=== PATIENT | male | born 1990 | race Caucasian/White ===

== ENCOUNTER 2020-05-02 08:35 | Emergency (ER) | payer OTHER, SELFPAY ==
[2020-05-02 08:50] VITALS: BP 136/91; PULSE 78; RESP 18; TEMP 36.7; O2SAT 99; BMI 25.2
--- NOTE | 2020-05-02 08:50 | ED.DENTAL ---
HPI - Dental/Oral General Chief complaint: Dental/Oral Stated complaint: Tooth Pain Time Seen by Provider: 05/02/20 08:50 Source: patient Mode of arrival: ambulatory Limitations: no limitations History of Present Illness HPI Narrative: 30 y/o male with history of poor dentition requiring multiple extractions in the past presenting with 2 weeks of left upper dental pain. He has not called his dentist or taken any medications. He has been using hydrogen peroxide mouth wash. He states the pain has been worsening and he is unable to sleep and unable to concentrate at his job. He reports headache, upset stomach and nausea as well. Denies fever, jaw pain. States last night he noticed slight swelling of his upper gum and face prompting ER evaluation. Related Data Previous Rx's Medication Instructions Recorded ibuprofen 600 mg PO Q8H PRN #30 tab 05/02/20 penicillin V potassium 500 mg PO TID #21 tab 05/02/20 tramadol 50 mg PO Q8H PRN #10 tab 05/02/20 Allergies Allergy/AdvReac Type Severity Reaction Status Date / Time No Known Allergies Allergy Verified 05/02/20 08:50 Review of Systems Review of Systems: Constitutional: No Fever, No Chills ENT/Mouth: No sore throat, No Rhinorrhea, No Swallowing Difficulty, +dental pain, +facial swelling Cardiovascular: No Chest Pain, No SOB Respiratory: No Cough, No Sputum, No Wheezing, No dyspnea Gastrointestinal: + Nausea, No Vomiting, No Diarrhea, No abdominal Pain Genitourinary: No Dysuria, No Urinary Frequency, No Hematuria Musculoskeletal: No joint pain, No Myalgias Skin: No Skin Lesions, No rash Neuro: No Weakness, No Numbness, No Dizziness, No Headache Psych: No Anxiety/Panic, No Depression Heme/Lymph: No Bruising, No Lymphadenopathy Endocrine: No Polyuria, No Polydipsia [facility] Past Medical History Medical History (Updated 05/02/20 @ 08:56 by JEREL Corley) No known health problems No known health problems Social History Social History Alcohol intake: current Alcohol intake frequency: a few times a month Smoking Status: Current every day smoker Use of substances other than those prescribed or required for medical reasons: Yes Substance Use Type: Marijuana Physical Exam Vital Signs: Vital Signs: Vital Signs Temp Pulse Resp BP Pulse Ox 05/02/20 08:50 98.1 F 78 18 136/91 H 99 Body Mass Index 25.2 Const: General: cooperative and healthy appearing Orientation/consciousness: oriented to person, oriented to place and oriented to time HENMT: Head: Yes normal to inspection Ears: hearing grossly normal bilaterally General nose exam: Normal external nose present Teeth and gingiva: gingiva abnormal tender and poor dentition Teeth image: 1. dental decay with gingival tenderness. no drainable abscess appreciated Throat: Yes posterior oropharynx normal Eyes: General: appearance normal, both eyes and all related structures Neck: Neck: Yes normal visual inspection, Yes full ROM and Yes no lymphadenopathy Chest: Chest palpation & inspection: normal inspection of the chest Resp: Effort & Inspection: normal respiratory effort Neuro: General: oriented to person, oriented to place and oriented to time Cranial nerves: Yes CN's II-XII intact bilaterally Gait exam (Neuro): Normal gait present Extrem: General: Yes normal to inspection Psych: Appearance: grossly normal Mental Status: mental status grossly normal Course Course Course Narrative: no abscess appreciated. facial swelling is minimal. no trismus. will empirically tx with PCN V and refer to dental. he agrees to be evaluated by dental JAYDON. NSAID and PRN tramadol also given. stable for d/c. MDM - Dental/Oral Differential Diagnosis Differential diagnosis: Likely gingival abscess, dental caries, toothache, dental abscess, fracture of tooth and aphthous ulcer Discharge Plan Discharge Clinical Impression: Toothache Patient Disposition: Home, Self-Care Instructions: Dental Abscess (ED), Toothache (ED) Additional Instructions: You MUST follow up with a dentist JAYDON. If you develop increased facial swelling, difficulty opening or closing your mouth, fevers despite antibiotics come back to the ER for further evaluation. Do not smoke, this can worsen dental infections and dental pain. Prescriptions: New ibuprofen 600 mg tablet 600 mg PO Q8H PRN (Reason: pain) Qty: 30 RF: 0 penicillin V potassium 500 mg tablet 500 mg PO TID Qty: 21 RF: 0 tramadol 50 mg tablet 50 mg PO Q8H PRN (Reason: pain) Qty: 10 RF: 0 Stand Alone Forms: Work/School Release
== END 2020-05-02 09:24 | disposition home or self-care (01) ==
LOC: HO.ED 09:09
PROVIDERS: Emergency Provider Emergency Medicine
DX: K04.7 Periapical abscess without sinus (principal); K08.89 Other specified disorders of teeth and supporting structures; F17.200 Nicotine dependence, unspecified, uncomplicated
CPT/HCPCS: 99283

== ENCOUNTER 2020-06-27 09:40 | Outpatient (REF) | payer OTHER, SELFPAY | END 2020-06-27 09:41 | disposition home or self-care (01) | LOC: HO.LAB 09:40 | PROVIDERS: Visit Provider Internal Medicine | DX: Z20.828 Contact with and (suspected) exposure to other viral communicable diseases (principal) | CPT/HCPCS: C9803; U0003 ==

== ENCOUNTER 2020-07-20 17:13 | Emergency (ER) | payer OTHER, SELFPAY ==
--- NOTE | 2020-07-20 17:20 | ED.ABDPAIN ---
HPI - Abdominal Pain General Chief Complaint: Abdominal Pain Stated Complaint: abd pain Time Seen by Provider: 07/20/20 17:20 Source: patient Mode of arrival: ambulatory Limitations: no limitations History of Present Illness HPI narrative: Patient with recurrent chronic abdominal pain for years got worse prior to arrival after lifting water with nausea no chronic diarrhea specially for last 1 week with blood when he wipes no shortness of breath no vomiting patient has not been evaluated by [employer] in the past of marijuana or any drugs Related Data Previous Rx's Medication Instructions Recorded ibuprofen 600 mg PO Q8H PRN #30 tab 05/02/20 penicillin V potassium 500 mg PO TID #21 tab 05/02/20 tramadol 50 mg PO Q8H PRN #10 tab 05/02/20 Allergies Allergy/AdvReac Type Severity Reaction Status Date / Time No Known Allergies Allergy Verified 07/20/20 17:18 Review of Systems Review of Systems Constitutional : No Weight loss, No Fever, No Chills ENT/Mouth : No sore throat, No Rhinorrhea Eyes: No Eye Pain, No Swelling Cardiovascular : No Chest Pain, no palpitations Respiratory : No Cough, No Sputum, no shortness of breath Gastrointestinal : +Nausea, No Vomiting, No Diarrhea, N++abdominal Pain, no black stools Genitourinary : No Dysuria, No Urinary Frequency Musculoskeletal : No joint pain, No Myalgias, No Joint Swelling Skin : No Skin Lesions, No rash Neuro : No Weakness, No Numbness, No Dizziness, No Headache Psych : No Anxiety/Panic, No Depression Heme/Lymph: No Bruising, No Lymphadenopathy Endocrine : No Polyuria, No Polydipsia All other systems reviewed and are negative Physical Exam Vital Signs: Vital Signs: Last Vital Signs Temp 99.4 F 07/20/20 17:25 Pulse 66 07/20/20 17:25 Resp 20 07/20/20 17:25 BP 108/63 07/20/20 17:25 Pulse Ox 100 07/20/20 17:25 Body Mass Index 23.6 Appearance: Alert. Oriented X3. No acute distress. Eyes: Pupils equal, round and reactive to light. ENT: Pharynx normal. Neck: Normal inspection. Neck supple. CVS: Normal heart rate and rhythm. Pulses normal. Respiratory: No respiratory distress. Breath sounds normal. Abdomen: Soft diffuse abdominal tenderness no guarding or rebound tenderness. Bowel sounds are present, no mass palpable, no CVA tenderness Skin: Skin warm and dry. Normal skin color. Normal skin turgor. Extremities: No lower extremity edema. Neuro: Oriented X 3. No motor deficit. No sensory deficit. Course Course Course Narrative: Patient has chronic abdominal pain with stable labs likely IBS discharge patient home on Bentyl MDM - Abdominal Pain Medical Records Attestation: I reviewed the patient's medical records. Lab Data Attestation: I reviewed the patient's lab results. Result diagrams: 07/20/20 17:52 07/20/20 17:52 Labs: Lab Results 07/20/20 07/20/20 Range/Units 17:52 17:52 WBC 6.7 (4.8-10.8) X10*3/uL RBC 4.66 (4.60-5.80) X10*6/uL Hgb 14.1 (14.0-18.0) g/dl Hct 41.1 L (42-52) % MCV 88.2 (80-98) fL MCH 30.3 (27.0-33.0) pg MCHC 34.3 (31.0-36.0) g/dl RDW 12.3 (11.0-16.0) % Plt Count 232 (160-400) X10*3/uL MPV 10.5 (9.4-12.4) fL Immature Gran % (Auto) 0.3 (0.0-0.4) % Neut % (Auto) 45.3 (45-73) % Lymph % (Auto) 41.1 H (20-40) % Shelby % (Auto) 8.6 (2-11) % Eos % (Auto) 4.0 (0-4) % Baso % (Auto) 0.7 (0-2) % Lymph # (Auto) 2.8 (1.2-4.9) X10*3/uL Shelby # (Auto) 0.6 (0.1-1.2) X10*3/uL Eos # (Auto) 0.3 (0.0-0.4) X10*3/uL Baso # (Auto) 0.1 (0.0-0.2) X10*3/uL Abs Immat Gran (auto) 0.02 (0.00-0.03) X10*3/uL Absolute Neuts (auto) 3.1 (2.0-8.3) X10*3/uL Absolute Nucleated RBC 0.000 (0.0-0.012) X10*3/uL Nucleated RBC % (auto) 0.0 (0.0-0.2) /100WBC Sodium 139 (135-145) mmol/L Potassium 4.2 (3.3-5.1) mmol/l Chloride 103 (96-108) mmol/L Carbon Dioxide 28 (22-29) mmol/L Anion Gap 12 (12-20) BUN 12 (9-16) mg/dL Creatinine 0.98 (0.5-1.4) mg/dL Estim Creat Clear Calc 106.6 Estimated GFR > 60 Random Glucose 76 (60-115) mg/dL Calcium 9.3 (8.4-10.2) mg/dL Total Bilirubin 0.4 (0.0-1.0) mg/dL Direct Bilirubin 0.2 (0.0-0.5) mg/dL AST 30 (5-37) U/L ALT 27 (0-40) U/L Alkaline Phosphatase 61 (39-117) U/L Total Protein 7.0 (6.5-8.0) g/dL Albumin 4.5 (3.5-5.0) g/dL Discharge Plan Discharge Prescriptions: No Action ibuprofen 600 mg tablet 600 mg PO Q8H PRN (Reason: pain) Qty: 30 RF: 0 penicillin V potassium 500 mg tablet 500 mg PO TID Qty: 21 RF: 0 tramadol 50 mg tablet 50 mg PO Q8H PRN (Reason: pain) Qty: 10 RF: 0 PMFSH Social History Social History Alcohol intake: never Smoking Status: Current every day smoker Smoked in Last 30 Days: No Use of substances other than those prescribed or required for medical reasons: No Substance Use Type: Marijuana Advance Directives: No Advance Directives Information Provided: Yes
[2020-07-20 17:25] VITALS: BP 108/63; PULSE 66; RESP 20; TEMP 37.4; O2SAT 100; BMI 23.6
[2020-07-20] MEDS: Dicyclomine HCl 10 MG CAPSULE 20 MG PO (17:55)
[2020-07-20] MEDS: Ketorolac Tromethamine 30 MG/ML VIAL IVPUSH (17:55)
--- NOTE | 2020-07-20 18:05 | PC.NURSE ---
iv inserted labs drawn, patient medicated per order, will continue to monitor.
[2020-07-20 18:11] LABS: MANUAL DIFF FLAG NO
[2020-07-20 18:20] LABS: Basophils Absolute Auto 0.1 X10*3/uL (0.0-0.2); Basophils Percent Auto 0.7 % (0-2); Eosinophils Absolute Auto 0.3 X10*3/uL (0.0-0.4); Hematocrit 41.1 % (42-52); Hemoglobin 14.1 g/dl (14.0-18.0); Imm Gran Abs Auto 0.02 X10*3/uL (0.00-0.03); Imm Gran Pct Auto 0.3 % (0.0-0.4); Lymphocytes Absolute Auto 2.8 X10*3/uL (1.2-4.9); Lymphocytes Percent Auto 41.1 % (20-40); Mean Corpuscular HGB Conc 34.3 g/dl (31.0-36.0); Mean Corpuscular Hemoglobin 30.3 pg (27.0-33.0); Mean Corpuscular Volume 88.2 fL (80-98); Mean Platelet Volume 10.5 fL (9.4-12.4); Monocytes Absolute Auto 0.6 X10*3/uL (0.1-1.2); Monocytes Percent Auto 8.6 % (2-11); Neutrophils Absolute Auto 3.1 X10*3/uL (2.0-8.3); Neutrophils Percent Auto 45.3 % (45-73); Platelet Count 232 X10*3/uL (160-400); Red Blood Count 4.66 X10*6/uL (4.60-5.80); Red Cell Distribution Width 12.3 % (11.0-16.0); White Blood Count 6.7 X10*3/uL (4.8-10.8)
[2020-07-20 18:48] LABS: Alanine Aminotransferase 27 U/L (0-40); Albumin Level 4.5 g/dL (3.5-5.0); Alkaline Phosphatase 61 U/L (39-117); Anion Gap 12 (12-20); Aspartate Amino Transferase 30 U/L (5-37); Bilirubin Direct 0.2 mg/dL (0.0-0.5); Bilirubin Total 0.4 mg/dL (0.0-1.0); Blood Urea Nitrogen 12 mg/dL (9-16); Calcium 9.3 mg/dL (8.4-10.2); Carbon Dioxide 28 mmol/L (22-29); Chloride 103 mmol/L (96-108); Creatinine Clr Calc Pharmacy 106.6; Estimated Glomerular Filt Rate > 60; Glucose Random 76 mg/dL (60-115); Potassium 4.2 mmol/l (3.3-5.1); Sodium 139 mmol/L (135-145)
[2020-07-20 19:02] LABS: Lipase 192 U/L (8-78)
== END 2020-07-20 19:10 | disposition home or self-care (01) ==
PROVIDERS: Emergency Provider Internal Medicine
DX: K58.9 Irritable bowel syndrome, unspecified (principal); G89.29 Other chronic pain; R10.9 Unspecified abdominal pain
CPT/HCPCS: 36415; 80048; 80076; 83690; 85025; 96374; 99284; J1885

== ENCOUNTER 2020-07-22 17:28 | Emergency (ER) | payer OTHER, SELFPAY ==
[2020-07-22 18:51] VITALS: PULSE 59; RESP 20; TEMP 36.2; O2SAT 100; BMI 24.3
[2020-07-22 20:20] VITALS: BP 163/87; PULSE 49; TEMP 36.6; O2SAT 100
--- NOTE | 2020-07-22 20:24 | PC.NURSE ---
pt pain level 10/10. with vomiting. pt pain is to his right flank.
[2020-07-22 20:34] LABS: MANUAL DIFF FLAG NO
[2020-07-22 20:56] LABS: Alanine Aminotransferase 26 U/L (0-40); Albumin Level 4.8 g/dL (3.5-5.0); Alkaline Phosphatase 62 U/L (39-117); Anion Gap 16 (12-20); Aspartate Amino Transferase 24 U/L (5-37); Bilirubin Direct 0.5 mg/dL (0.0-0.5); Bilirubin Total 0.9 mg/dL (0.0-1.0); Blood Urea Nitrogen 11 mg/dL (9-16); Calcium 9.4 mg/dL (8.4-10.2); Carbon Dioxide 24 mmol/L (22-29); Chloride 104 mmol/L (96-108); Creatinine Clr Calc Pharmacy 100.4; Estimated Glomerular Filt Rate > 60; Glucose Random 121 mg/dL (60-115); Potassium 3.4 mmol/l (3.3-5.1); Sodium 141 mmol/L (135-145); Total Protein 7.6 g/dL (6.5-8.0)
[2020-07-22 20:57] LABS: Basophils Percent Auto 0.3 % (0-2); Eosinophils Absolute Auto 0.1 X10*3/uL (0.0-0.4); Eosinophils Percent Auto 0.6 % (0-4); Hemoglobin 15.3 g/dl (14.0-18.0); Imm Gran Abs Auto 0.04 X10*3/uL (0.00-0.03); Imm Gran Pct Auto 0.4 % (0.0-0.4); Lymphocytes Absolute Auto 1.5 X10*3/uL (1.2-4.9); Lymphocytes Percent Auto 13.9 % (20-40); Mean Corpuscular HGB Conc 34.8 g/dl (31.0-36.0); Mean Corpuscular Hemoglobin 30.5 pg (27.0-33.0); Mean Corpuscular Volume 87.6 fL (80-98); Mean Platelet Volume 10.6 fL (9.4-12.4); Monocytes Absolute Auto 0.5 X10*3/uL (0.1-1.2); Monocytes Percent Auto 4.8 % (2-11); Neutrophils Absolute Auto 8.5 X10*3/uL (2.0-8.3); Platelet Count 263 X10*3/uL (160-400); Red Blood Count 5.02 X10*6/uL (4.60-5.80); Red Cell Distribution Width 12.1 % (11.0-16.0); White Blood Count 10.6 X10*3/uL (4.8-10.8)
[2020-07-22 21:17] LABS: Lipase 180 U/L (8-78)
--- NOTE | 2020-07-22 21:27 | CT_ITS ---
EXAMINATION: CT ABDOMEN AND PELVIS WITHOUT CONTRAST CLINICAL INFORMATION: Right flank pain hematuria rule out stone. COMPARISON: None TECHNIQUE: Multidetector volumetric imaging was performed from the superior aspect of the liver through the pubic symphysis. Sagittal and coronal reformatted images were obtained on the technologist's workstation. This CT examination was performed using dose optimization techniques as appropriate, variously including the following: *Automated exposure control *Adjustment of mA and/or kV according to patient size (this includes techniques or standardized protocols for targeted exams where dose is matched to indication/reason for exam; i.e. extremities or head) *Use of iterative reconstruction technique DLP: 440 mGy-cm FINDINGS: LUNG BASES: The visualized lung bases are unremarkable. LIVER, GALLBLADDER, AND BILIARY TREE: The liver is normal in size, shape, and attenuation. No focal hepatic lesion or biliary ductal dilatation is present. The gallbladder is unremarkable with no evidence of radiopaque gallstones, gallbladder wall thickening, or obvious pericholecystic inflammatory changes. PANCREAS: Unremarkable. SPLEEN: Unremarkable. ADRENAL GLANDS: Unremarkable. KIDNEYS AND URETERS: Multiple small bilateral renal calculi noted as before largest measuring 3 mm. Multiple calcifications noted within the pelvis none of which appear to be clearly located within the distal ureter. Slight dilatation of the proximal right collecting system compared to prior. There is no perinephric stranding. BLADDER: Unremarkable. GASTROINTESTINAL TRACT: The small and large bowel are unremarkable. The appendix is unremarkable. ABDOMINAL WALL: No significant hernia is appreciated. LYMPH NODES: Normal. VASCULAR: Unremarkable. PELVIC VISCERA: Unremarkable. OSSEOUS STRUCTURES: Unremarkable. CT/CT abdomen pelvis wo con IMPRESSION: Unchanged bilateral small nonobstructing calculi. Slight prominence of the proximal right collecting system but I do not clearly see a stone within the right ureter. It is possible that a recent small stone may have passed given the slight dilatation of the right proximal collecting system.
--- NOTE | 2020-07-22 21:28 | ED.GENADULT ---
HPI - General Adult General Chief complaint: Abdominal Pain Stated complaint: back/rib pain Time Seen by Provider: 07/22/20 21:14 Source: patient Mode of arrival: ambulatory Limitations: no limitations History of Present Illness HPI narrative: 30-year-old male who presents emergency department for evaluation of abdominal pain and right flank pain. Patient states this sudden onset of right flank pain at 5:00 p.m.. He describes the pain as a constant, sharp stabbing pain which is 10/10 this worse. The pain is associated with nausea and vomiting. The patient had 4 episodes of emesis with no blood in the emesis. He states that he did notice blood in his urine. He denied frequency, urgency dysuria. He denied fever, chills but he did have sweats secondary to his pain. The patient was seen 2 days prior the emergency department for left-sided abdominal pain and blood in his stool. He had a negative workup at that time but did not have a CT scan of his abdomen pelvis. The patient was started on Bentyl which she states relieved his abdominal pain but today's pain is different. Related Data Previous Rx's Medication Instructions Recorded ibuprofen 600 mg PO Q8H PRN #30 tab 05/02/20 penicillin V potassium 500 mg PO TID #21 tab 05/02/20 tramadol 50 mg PO Q8H PRN #10 tab 05/02/20 dicyclomine 20 mg PO QID PRN #20 tab 07/20/20 Allergies Allergy/AdvReac Type Severity Reaction Status Date / Time No Known Allergies Allergy Verified 07/20/20 17:18 Review of Systems Review of Systems: Yes all other systems are reviewed and are negative Neurologic: Reports Abnormal speech present COUNT INCLUDES THE [facility] Past Medical History COUNT INCLUDES THE [facility] Narrative: Patient has no past medical history, he denies taking medications on a regular basis, he smokes 1/2 pack of cigarettes per day x8 years, drinks alcohol occasionally, he smokes marijuana 2-3 times daily. Social History Social History Alcohol intake: never Smoking Status: Current every day smoker Substance Use Type: Marijuana Advance Directives: No Advance Directives Information Provided: No Physical Exam Vital Signs: Vital Signs: Last Vital Signs Temp 97.8 F 07/22/20 20:20 Pulse 49 L 07/22/20 20:20 Resp 20 07/22/20 18:51 BP 163/87 H 07/22/20 20:20 Pulse Ox 100 07/22/20 20:20 Body Mass Index 24.3 Const: General: cooperative and in distress (Secondary to abdominal/flank pain) moderate Orientation/consciousness: oriented to person and oriented to place Limitations: no limitations HENMT: Head: Yes normal to inspection, Yes normocephalic and Yes atraumatic Ears: external ears normal General nose exam: Normal external nose present Face and sinus: Yes normal facial exam Mouth: Normal oral and palatal mucosa present Throat: Yes posterior oropharynx normal Eyes: Periorbital: periorbital findings normal Eyelids: Yes eyelids normal Conjunctivae: conjunctivae normal Sclerae: sclerae normal Corneas: corneas normal Pupils: Equal, round and reactive pupils present Direct Ophthalmoscopy: normal light reflex Neck: Neck: Yes full ROM, Yes no lymphadenopathy, Yes no meningeal signs, Yes trachea midline and Yes supple Chest: Chest palpation & inspection: normal inspection of the chest and normal palpation of entire chest wall Resp: Effort & Inspection: normal respiratory effort and able to speak in complete sentences Auscultation: clear to auscultation bilaterally Cardio: Rate: regular rate Rhythm: regular rhythm Heart sounds: S1 normal heart sound present, S2 normal heart sound present and no murmurs GI: Inspection: Yes normal to inspection Palpation (GI): Soft to palpation, Tenderness to palpation present (GI) (Moderate) in the RLQ, no guarding, not rigid and No hepatosplenomegaly present : General: Yes CVA tenderness on the right (Moderate) Back/Spine/Pelvis: Back: CVA tenderness Cervical Spine: normal cervical lordosis Thoracic/Lumbar Spine: thoracic and lumbar spine normal to inspection Skin: Lesions: no lesions Rashes: no rashes Wounds: no wounds Neuro: General: oriented to person, oriented to place and no meningeal signs Cranial nerves: Yes Equal, round and reactive pupils present Cognition (Neuro): normal cognition Speech: Abnormal speech present Motor exam (neuro): 5/5 motor strength present throughout Extrem: General: Yes normal to inspection and Yes full ROM Psych: Appearance: well kempt Mental Status: mental status grossly normal Speech and movement: Normal speech and movement present Affect: normal affect Attitude: cooperative Thought process: Normal thought process present Thought content: Normal thought content present Course Course Course Narrative: 30-year-old male who presents emergency department for evaluation of right flank pain and hematuria x1 day. Patient was seen 2 days prior for left-sided abdominal pain. Physical examination did reveal there was in distress secondary to his right-side of pain, he did have moderate right lower quadrant tenderness and moderate right-sided CVA tenderness. I did order an abdominal pain workup and a CT scan of the abdomen pelvis without IV contrast. The patient was ordered to get Toradol 30 mg IV for his pain, Zofran 4 mg IV for his nausea and vomiting and normal saline IV x1 L. 2326: The patient did feel better after receiving the Toradol Zofran but had persistent nausea required a dose of Phenergan 12.5 mg IV. The patient is now pain-free and has no nausea. Laboratory evaluation did reveal an elevation in his lipase of 180 that he has had similar elevations in the past. I do not think that he has acute pancreatitis at this time. The patient was unable to give us a urine. CT scan of the abdomen pelvis did reveal multiple small kidney stones bilaterally and slight dilatation of the right renal pelvis compared to the left with no hydroureter and no stone seen in the ureter. Given this finding I do believe that the patient's symptoms are consistent with renal colic and I did discuss this with him. The patient will be discharged home advised to take ibuprofen Tylenol for the pain. He was given printed instructions on renal colic and is reviewed with him prior to discharge. He is to follow up with his PCP or with Urology for re-evaluation. Medical Decision Making Lab Data Result diagrams: 07/22/20 20:24 07/22/20 20:24 Labs: Lab Results 07/22/20 07/22/20 Range/Units 20:24 20:24 WBC 10.6 (4.8-10.8) X10*3/uL RBC 5.02 (4.60-5.80) X10*6/uL Hgb 15.3 (14.0-18.0) g/dl Hct 44.0 (42-52) % MCV 87.6 (80-98) fL MCH 30.5 (27.0-33.0) pg MCHC 34.8 (31.0-36.0) g/dl RDW 12.1 (11.0-16.0) % Plt Count 263 (160-400) X10*3/uL MPV 10.6 (9.4-12.4) fL Immature Gran % (Auto) 0.4 (0.0-0.4) % Neut % (Auto) 80.0 H (45-73) % Lymph % (Auto) 13.9 L (20-40) % Reeves % (Auto) 4.8 (2-11) % Eos % (Auto) 0.6 (0-4) % Baso % (Auto) 0.3 (0-2) % Lymph # (Auto) 1.5 (1.2-4.9) X10*3/uL Reeves # (Auto) 0.5 (0.1-1.2) X10*3/uL Eos # (Auto) 0.1 (0.0-0.4) X10*3/uL Baso # (Auto) 0.0 (0.0-0.2) X10*3/uL Abs Immat Gran (auto) 0.04 H (0.00-0.03) X10*3/uL Absolute Neuts (auto) 8.5 H (2.0-8.3) X10*3/uL Absolute Nucleated RBC 0.000 (0.0-0.012) X10*3/uL Nucleated RBC % (auto) 0.0 (0.0-0.2) /100WBC Sodium 141 (135-145) mmol/L Potassium 3.4 (3.3-5.1) mmol/l Chloride 104 (96-108) mmol/L Carbon Dioxide 24 (22-29) mmol/L Anion Gap 16 (12-20) BUN 11 (9-16) mg/dL Creatinine 1.04 (0.5-1.4) mg/dL Estim Creat Clear Calc 100.4 Estimated GFR > 60 Random Glucose 121 H D (60-115) mg/dL Calcium 9.4 (8.4-10.2) mg/dL Total Bilirubin 0.9 (0.0-1.0) mg/dL Direct Bilirubin 0.5 (0.0-0.5) mg/dL AST 24 (5-37) U/L ALT 26 (0-40) U/L Alkaline Phosphatase 62 (39-117) U/L Total Protein 7.6 (6.5-8.0) g/dL Albumin 4.8 (3.5-5.0) g/dL Lipase 180 H (8-78) U/L Discharge Plan Discharge Clinical Impression: Acute right flank pain, Renal colic on right side Patient Disposition: Home, Self-Care Instructions: Kidney Stones (ED) Additional Instructions: Your laboratory evaluation was unremarkable. The CT scan of your abdomen pelvis without IV contrast did reveal swelling of the right kidney/renal pelvis which suggests that she you may have had a kidney stone on the right side causing her pain. CT scan also showed that you have multiple small kidney stones in both of your kidneys which are not causing you pain at this time. Take ibuprofen 200 mg pills, 3 pills every 6 hours as needed for pain. Take Tylenol (acetaminophen) 500 mg pills, 2 pills every 4 to 6 hours as needed for pain. Follow-up with your doctor in 2 days. Follow-up with urology in 1-2 weeks. Please return to the emergency department if your symptoms get worse or if you develop any symptoms that are concerning to you. Prescriptions: No Action dicyclomine 20 mg tablet 20 mg PO QID PRN (Reason: abdominal pain) Qty: 20 RF: 0 ibuprofen 600 mg tablet 600 mg PO Q8H PRN (Reason: pain) Qty: 30 RF: 0 penicillin V potassium 500 mg tablet 500 mg PO TID Qty: 21 RF: 0 tramadol 50 mg tablet 50 mg PO Q8H PRN (Reason: pain) Qty: 10 RF: 0 Referrals: Eric Petersen MD [Physician] - 2 days
[2020-07-22] MEDS: Ketorolac Tromethamine 30 MG/ML VIAL IVPUSH (21:52)
[2020-07-22] MEDS: 0.9 % Sodium Chloride 1,000 ML 999 ML IV (21:52)
[2020-07-22] MEDS: ondansetron HCL 4 MG/2 ML VIAL IVPUSH (21:52)
[2020-07-23] VITALS: BP 140/70; PULSE 64; RESP 16; TEMP 36.8; O2SAT 98
== END 2020-07-23 00:47 | disposition home or self-care (01) ==
PROVIDERS: Emergency Provider Emergency Medicine Emergency Medical Services
DX: N20.0 Calculus of kidney (principal); R10.9 Unspecified abdominal pain; F17.210 Nicotine dependence, cigarettes, uncomplicated
CPT/HCPCS: 36415; 74176; 80053; 80076; 82248; 83690; 85025; 96361; 96374; 96375; 99284; J1885; J2405

== ENCOUNTER 2020-07-24 11:40 | Emergency (ER) | payer OTHER, SELFPAY ==
[2020-07-24 11:54] VITALS: BP 122/84; PULSE 67; RESP 18; TEMP 36.1; O2SAT 99; BMI 24.3
--- NOTE | 2020-07-24 11:55 | ED.RECABL ---
HPI - Recheck/Abnormal Lab/Rx General Chief Complaint: Recheck/Abnormal Lab/Rx Stated Complaint: medical clearance Time Seen by Provider: 07/24/20 11:55 Source: patient Mode of arrival: ambulatory Limitations: no limitations History of Present Illness HPI narrative: Seen here 07/22/2020 for flank pain diagnosis renal calculi had to miss work returns seeking work noted. Symptoms since prior visit: improved Related Data Previous Rx's Medication Instructions Recorded ibuprofen 600 mg PO Q8H PRN #30 tab 05/02/20 penicillin V potassium 500 mg PO TID #21 tab 05/02/20 tramadol 50 mg PO Q8H PRN #10 tab 05/02/20 dicyclomine 20 mg PO QID PRN #20 tab 07/20/20 Allergies Allergy/AdvReac Type Severity Reaction Status Date / Time No Known Allergies Allergy Verified 07/20/20 17:18 Review of Systems Review of Systems: Constitutional: No Weight loss, No Fever, No Chills, No Night Sweats, No Fatigue, No Malaise ENT/Mouth: No Hearing loss, No Ear Pain, No Nasal Congestion, No Sinus Pain, No Hoarseness, No sore throat, No Rhinorrhea, No Swallowing Difficulty Cardiovascular: No Chest Pain, No SOB Respiratory: No Cough Gastrointestinal: No Nausea, No Vomiting, No Diarrhea Genitourinary: No Urinary Frequency, No Hematuria Musculoskeletal: No joint pain, No Myalgias, No Joint Swelling Skin: No Skin Lesions, No rash Neuro: No Weakness, No Numbness, No Paresthesias, No Loss of Consciousness, No Dizziness, No Headache Psych: No Social Issues Heme/Lymph: No Bruising, No Bleeding,No Lymphadenopathy Endocrine: No Polyuria, No Polydipsia, No Temperature Intolerance Yes all other systems are reviewed and are negative ON LICENSE OF [facility] Past Medical History Medical History (Updated 07/24/20 @ 11:57 by Claire De La Torre) No pertinent past medical history Surgical History (Updated 07/24/20 @ 11:57 by Claire De La Torre) No pertinent past surgical history Social History Social History Alcohol intake: unknown Smoking Status: Current every day smoker Substance Use Type: Marijuana Physical Exam Vital Signs: Vital Signs: Last Vital Signs Temp 97.0 F 07/24/20 11:54 Pulse 67 07/24/20 11:54 Resp 18 07/24/20 11:54 BP 122/84 07/24/20 11:54 Pulse Ox 99 07/24/20 11:54 Body Mass Index 24.3 Course Course Course Narrative: Prior visit reviewed. Work note provided. Follow-up provided. Stable for discharge. Discharge Plan Discharge Clinical Impression: Well adult exam Patient Disposition: Home, Self-Care Instructions: Flank Pain (ED) Prescriptions: No Action dicyclomine 20 mg tablet 20 mg PO QID PRN (Reason: abdominal pain) Qty: 20 RF: 0 ibuprofen 600 mg tablet 600 mg PO Q8H PRN (Reason: pain) Qty: 30 RF: 0 penicillin V potassium 500 mg tablet 500 mg PO TID Qty: 21 RF: 0 tramadol 50 mg tablet 50 mg PO Q8H PRN (Reason: pain) Qty: 10 RF: 0 Referrals: [facility] [Provider Group] - 3 days Stand Alone Forms: Work/School Release
--- NOTE | 2020-07-24 11:58 | PC.NURSE ---
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 HERE FOR WORK NOTE ONLY. PT TRIAGED AND THEN DISCHARGED. PROVIDED WITH NOTE. AMBULATORY OUT OF ER, GAIT STEADY
== END 2020-07-24 12:17 | disposition home or self-care (01) ==
PROVIDERS: Emergency Provider Emergency Medicine; PCP Urology
DX: Z02.79 Encounter for issue of other medical certificate (principal); R10.9 Unspecified abdominal pain
CPT/HCPCS: 99283

== ENCOUNTER → 2020-07-25 10:34 | Outpatient (BNVA) | payer OTHER, SELFPAY | PROVIDERS: Visit Provider Urology | DX: N20.0 Calculus of kidney (principal); M54.9 Dorsalgia, unspecified | CPT/HCPCS: 99202 ==

== ENCOUNTER 2020-11-23 19:17 | Emergency (ER) | payer OTHER, SELFPAY ==
[2020-11-23 19:37] VITALS: BP 95/61; PULSE 56; RESP 16; TEMP 36.6; BMI 24.3
--- NOTE | 2020-11-23 20:23 | ED.WOUNDLAC ---
HPI - Wound/Laceration General Chief Complaint: Wound/Laceration Stated Complaint: finger lac Time Seen by Provider: 11/23/20 20:23 Source: patient Mode of arrival: ambulatory Limitations: no limitations History of Present Illness HPI narrative: cut thumb with fishing knife 2 hours ago, not up to date with tetanous Extremity Location: left: hand Place: outdoors Patient tetanus UTD: No Context: accidental Related Data Previous Rx's Medication Instructions Recorded ibuprofen 600 mg PO Q8H PRN #30 tab 05/02/20 penicillin V potassium 500 mg PO TID #21 tab 05/02/20 tramadol 50 mg PO Q8H PRN #10 tab 05/02/20 dicyclomine 20 mg PO QID PRN #20 tab 07/20/20 meloxicam 15 mg tablet 15 mg PO DAILY 30 Days #30 tab 07/25/20 pyridoxine (vitamin B6) 100 mg 100 mg PO DAILY 90 Days #90 tab 07/25/20 tablet Allergies Allergy/AdvReac Type Severity Reaction Status Date / Time No Known Allergies Allergy Verified 07/25/20 10:50 Review of Systems Constitutional: Constitutional: Reports no additional constitutional complaints Eyes: Eyes: Reports no additional eye complaints ENT: Denies dizziness Cardiovascular: Cardiovascular: Reports no additional cardiovascular complaints Respiratory: Respiratory: Reports as per HPI Gastrointestinal: Gastrointestinal: Reports no additional gastrointestinal complaints Musculoskeletal: Musculoskeletal: Reports no additional musculoskeletal complaints Integumentary/Breasts: Skin/Breast: Denies rash Neurologic: Reports system reviewed and no additional complaints, except as documented, Denies dizziness and Denies Sensory deficit (Neuro) Psychiatric: Psychiatric: Denies anxiety [facility] Past Medical History Medical History No pertinent past medical history Surgical History No pertinent past surgical history Social History Social History Alcohol intake: unknown Smoking Status: Current every day smoker Smoked in Last 30 Days: No Use of substances other than those prescribed or required for medical reasons: No Substance Use Type: Marijuana Any prior treatment program specific to substance use: No Advance Directives: No Advance Directives Information Provided: No Physical Exam Vital Signs: Vital Signs: Last Vital Signs Temp 98 F 11/23/20 19:37 Pulse 56 11/23/20 19:37 Resp 16 11/23/20 19:37 BP 95/61 11/23/20 19:37 Body Mass Index 24.3 Const: General: healthy appearing Nutritional Appearance: average body habitus Orientation/consciousness: oriented to person and patient oriented x3 Limitations: no limitations HENMT: Head: Yes normal to inspection Ears: external ears normal General nose exam: Normal external nose present Mouth: Normal oral and palatal mucosa present and oropharynx normal Throat: Yes posterior oropharynx normal Eyes: General: appearance normal, both eyes and all related structures Neck: Other: supple Neck: Yes normal visual inspection Chest: Chest palpation & inspection: normal inspection of the chest Resp: Auscultation: clear to auscultation bilaterally Cardio: Jugular venous distension: no JVD Rate: regular rate Rhythm: regular rhythm Heart sounds: S1 normal heart sound present and S2 normal heart sound present GI: Inspection: Yes normal to inspection Palpation (GI): Soft to palpation, nontender and No hepatosplenomegaly present Auscultation: normal bowel sounds : General: Yes no CVA tenderness Back/Spine/Pelvis: Back: no CVA tenderness Skin: General skin exam: no rashes or lesions noted Neuro: General: oriented to person and patient oriented x3 Cranial nerves: Yes CN's II-XII intact bilaterally Motor exam (neuro): 5/5 motor strength present throughout Sensory Exam: No Sensory deficit (Neuro) Extrem: Other: left thumb with skin avulsion Psych: Appearance: grossly normal Course Course Course Narrative: patient with skin avulsion, trimmed off bad skin and clean and dressed Discharge Plan Discharge Clinical Impression: Avulsion of skin Patient Disposition: Home, Self-Care Instructions: Skin Avulsion (ED) Additional Instructions: apply bacitracin once a day Prescriptions: No Action dicyclomine 20 mg tablet 20 mg PO QID PRN (Reason: abdominal pain) Qty: 20 RF: 0 ibuprofen 600 mg tablet 600 mg PO Q8H PRN (Reason: pain) Qty: 30 RF: 0 penicillin V potassium 500 mg tablet 500 mg PO TID Qty: 21 RF: 0 tramadol 50 mg tablet 50 mg PO Q8H PRN (Reason: pain) Qty: 10 RF: 0 pyridoxine (vitamin B6) 100 mg tablet 100 mg PO DAILY 90 Days Qty: 90 RF: 1 meloxicam [Mobic] 15 mg tablet 15 mg PO DAILY 30 Days Qty: 30 RF: 0 Referrals: Physician,Unknown [Primary Care Provider] - 10 days
[2020-11-23] MEDS: Lidocaine 4 % Cream KIT 1 APPL TOPICAL (20:36)
[2020-11-23] MEDS: cephALEXin 500 MG CAPSULE PO (20:36)
[2020-11-23] MEDS: Diphth,Pertus(ACell),Tet Adult 0.5 ML SYRINGE IM (20:37)
== END 2020-11-23 21:20 | disposition home or self-care (01) ==
PROVIDERS: Emergency Provider Emergency Medicine
DX: S61.012A Laceration without foreign body of left thumb without damage to nail, initial encounter (principal); W26.0XXA Contact with knife, initial encounter; F17.200 Nicotine dependence, unspecified, uncomplicated; F12.90 Cannabis use, unspecified, uncomplicated; Y93.89 Activity, other specified; Y92.89 Other specified places as the place of occurrence of the external cause; Y99.8 Other external cause status
CPT/HCPCS: 90471; 90715; 99284

== ENCOUNTER 2021-02-13 10:35 | Emergency (ER) | payer OTHER, SELFPAY ==
--- NOTE | ~2021-02-13 | US_ITS ---
EXAMINATION: US RETROPERITONEAL COMPLETE (RENAL) CLINICAL INFORMATION: Left flank pain. COMPARISON: None TECHNIQUE: Real-time imaging of the kidneys and bladder. FINDINGS: RIGHT KIDNEY: 9.8 x 4.1 x 5.2 cm (SAG x AP x TRV). The kidney is normal in size, contour, and echogenicity. Renal cortical thickness is normal. There is a 3 mm stone in the lower pole. No focal parenchymal lesions. No hydronephrosis. LEFT KIDNEY: 10 x 5.8 x 6 cm (SAG x AP x TRV). The kidney is normal in size, contour, and echogenicity. Renal cortical thickness is normal. There is mild left hydronephrosis. There are multiple left renal stones, largest measuring 4 x 5 mm in the midpole. No renal mass. BLADDER: Not optimally distended. Bilateral ureteral jets are non-demonstrated. Prevoid bladder volume is 29 mL. Postvoid bladder volume is 1 mL. The prostate gland is normal in size measuring 3.5 x 2.2 x 2.8 cm, volume 9 mL. US/US retroperitoneal comp IMPRESSION: Mild left hydronephrosis and multiple left renal stones. Small right renal stone. Bladder not distended.
[2021-02-13 11:20] VITALS: BP 146/100; PULSE 55; RESP 18; TEMP 36.8; O2SAT 100; BMI 25.0
--- NOTE | 2021-02-13 12:32 | ED_ITS ---
HPI - Abdominal Pain General Chief Complaint: Abdominal Pain Stated Complaint: abd pain Time Seen by Provider: 02/13/21 12:27 Source: patient Mode of arrival: ambulatory Limitations: no limitations History of Present Illness MD elicited complaint: flank pain Pertinent past history: kidney stones Onset (ago): hour(s) (830am) Pain Consistency: constant Location: L flank Severity: moderate Quality: stabbing Radiation: LLQ Migration to: no migration Exacerbating factors: movement Relieving factors: nothing Context: history of similar episodes Associated symptoms: nausea, vomiting and other (urinary retention) Related Data Previous Rx's Medication Instructions Recorded ibuprofen 600 mg tablet 600 mg PO Q8H PRN #30 tab 05/02/20 penicillin V potassium 500 mg 500 mg PO TID #21 tab 05/02/20 tablet tramadol 50 mg tablet 50 mg PO Q8H PRN #10 tab 05/02/20 dicyclomine 20 mg tablet 20 mg PO QID PRN #20 tab 07/20/20 meloxicam 15 mg tablet (Mobic) 15 mg PO DAILY 30 Days #30 tab 07/25/20 pyridoxine (vitamin B6) 100 mg 100 mg PO DAILY 90 Days #90 tab 07/25/20 tablet hydrocodone 5 mg-acetaminophen 325 1 tab PO Q6H PRN #12 tab 02/13/21 mg tablet ondansetron 4 mg disintegrating 4 mg PO Q8H PRN #20 tab 02/13/21 tablet prednisone 20 mg tablet 40 mg PO DAILY 5 Days #10 tab 02/13/21 tamsulosin 0.4 mg capsule 0.4 mg PO DAILY 7 Days #7 cap 02/13/21 Allergies Allergy/AdvReac Type Severity Reaction Status Date / Time No Known Allergies Allergy Verified 07/25/20 10:50 Review of Systems Review of Systems Constitutional : No Weight loss, No Fever, No Chills ENT/Mouth : No sore throat, No Rhinorrhea Eyes: No Swelling, No Redness Cardiovascular : No Chest Pain, No SOB, NoEdema Respiratory : No Cough, No Sputum, No Wheezing Gastrointestinal : Positive Nausea, Positive Vomiting, no Diarrhea, positive abdominal Pain, No Hematochezia, No Melena Genitourinary : No Dysuria, No Urinary Frequency, No Hematuria, No Urgency , pos hesitancy Musculoskeletal : No joint pain, No Myalgias, No Joint Swelling Skin : No Skin Lesions, No rash Neuro : No Weakness, No Numbness, No Dizziness, No Headache Psych : No Anxiety/Panic, No Depression Heme/Lymph: No Bruising, No Lymphadenopathy Endocrine : No Polyuria, No Polydipsia All other systems reviewed and are negative. Physical Exam Vital Signs: Vital Signs: Last Vital Signs Temp 98.2 F 02/13/21 11:20 Pulse 55 02/13/21 11:20 Resp 18 02/13/21 14:27 BP 146/100 H 02/13/21 11:20 Pulse Ox 100 02/13/21 11:20 Body Mass Index 25.0 Appearance: Alert. Oriented X3. Anxious in pain mild acute distress. Eyes: Pupils equal, round and reactive to light. ENT: Pharynx normal. Neck: Normal inspection. Neck supple. CVS: Normal heart rate and rhythm. Pulses normal. Respiratory: No respiratory distress. Breath sounds normal. Abdomen: Soft and nontender. L flank ttp Skin: Skin warm and dry. pale skin color. Normal skin turgor. Extremities: No lower extremity edema. No calf ttp Neuro: Oriented X 3. No motor deficit. No sensory deficit. Course Course Course Narrative: signed out to Pankaj BELTRÁN pending UA and reassessments MDM - Abdominal Pain MDM Narrative Medical decision making narrative: 30 yo male with hx of renal colic comes in with n/v abrupt onset L flank pain and urinary hesitancy at this time will need labs, UA, US scan for renal colic, IV toradol/morphine for pain Lab Data Result diagrams: 02/13/21 12:55 02/13/21 12:55 Labs: Lab Results 02/13/21 02/13/21 Range/Units 12:55 12:55 WBC 15.6 H (4.8-10.8) X10*3/uL RBC 5.43 (4.60-5.80) X10*6/uL Hgb 16.4 (14.0-18.0) g/dl Hct 47.9 (42-52) % MCV 88.2 (80-98) fL MCH 30.2 (27.0-33.0) pg MCHC 34.2 (31.0-36.0) g/dl RDW 12.1 (11.0-16.0) % Plt Count 245 (160-400) X10*3/uL MPV 10.3 (9.4-12.4) fL Immature Gran % (Auto) 0.3 (0.0-0.4) % Neut % (Auto) 83.1 H (45-73) % Lymph % (Auto) 10.0 L (20-40) % [place] % (Auto) 5.2 (2-11) % Eos % (Auto) 1.1 (0-4) % Baso % (Auto) 0.3 (0-2) % Lymph # (Auto) 1.6 (1.2-4.9) X10*3/uL [place] # (Auto) 0.8 (0.1-1.2) X10*3/uL Eos # (Auto) 0.2 (0.0-0.4) X10*3/uL Baso # (Auto) 0.1 (0.0-0.2) X10*3/uL Abs Immat Gran (auto) 0.05 H (0.00-0.03) X10*3/uL Absolute Neuts (auto) 13.0 H (2.0-8.3) X10*3/uL Absolute Nucleated RBC 0.000 (0.0-0.012) X10*3/uL Nucleated RBC % (auto) 0.0 (0.0-0.2) /100WBC Sodium 141 (135-145) mmol/L Potassium 4.2 (3.3-5.1) mmol/L Chloride 106 (96-108) mmol/L Carbon Dioxide 23 (22-29) mmol/L Anion Gap 16 (12-20) BUN 16 (9-16) mg/dL Creatinine 1.07 (0.5-1.4) mg/dL Estim Creat Clear Calc 94.3 Estimated GFR > 60 Random Glucose 118 H (60-115) mg/dL Calcium 9.8 (8.4-10.2) mg/dL Discharge Plan Discharge Clinical Impression: Calculus of kidney Instructions: Ureteral Stones (ED) Additional Instructions: return to ED for any worsening symptoms or concerns Prescriptions: New hydrocodone-acetaminophen 5-325 mg tablet 1 tab PO Q6H PRN (Reason: pain) Qty: 12 RF: 0 prednisone 20 mg tablet 40 mg PO DAILY 5 Days Qty: 10 RF: 0 tamsulosin 0.4 mg capsule 0.4 mg PO DAILY 7 Days Qty: 7 RF: 0 ondansetron 4 mg tablet,disintegrating 4 mg PO Q8H PRN (Reason: nausea and vomiting) Qty: 20 RF: 0 No Action dicyclomine 20 mg tablet 20 mg PO QID PRN (Reason: abdominal pain) Qty: 20 RF: 0 ibuprofen 600 mg tablet 600 mg PO Q8H PRN (Reason: pain) Qty: 30 RF: 0 penicillin V potassium 500 mg tablet 500 mg PO TID Qty: 21 RF: 0 tramadol 50 mg tablet 50 mg PO Q8H PRN (Reason: pain) Qty: 10 RF: 0 pyridoxine (vitamin B6) 100 mg tablet 100 mg PO DAILY 90 Days Qty: 90 RF: 1 meloxicam [Mobic] 15 mg tablet 15 mg PO DAILY 30 Days Qty: 30 RF: 0 Referrals: Eric Petersen MD [Physician] - 3 days (if not better) Stand Alone Forms: Work/School Release [facility] Past Medical History Attestation statement: The following information was validated with the patient. Medical History (Updated 02/13/21 @ 16:05 by Sheila Mazariegos DO) Nephrolithiasis No pertinent past medical history Surgical History No pertinent past surgical history Social History Social History (Updated 02/13/21 @ 12:55 by Sheila Mazariegos DO) Alcohol intake: unknown Patient Tobacco Use Status: Current everyday Tobacco user Substance Use Type: Marijuana Advance Directives: No Advance Directives Information Provided: No
[2021-02-13 13:05] VITALS: RESP 16
[2021-02-13 13:05] LABS: MANUAL DIFF FLAG NO
[2021-02-13] MEDS: Ketorolac Tromethamine 15 MG/ML VIAL IVPUSH (13:05)
[2021-02-13] MEDS: Morphine Sulfate 4 MG/ML CARTRIDGE IVPUSH (13:05)
[2021-02-13] MEDS: 0.9 % Sodium Chloride 1,000 ML 999 ML IVCONT (13:05)
[2021-02-13 13:08] LABS: Basophils Absolute Auto 0.1 X10*3/uL (0.0-0.2); Basophils Percent Auto 0.3 % (0-2); Eosinophils Absolute Auto 0.2 X10*3/uL (0.0-0.4); Eosinophils Percent Auto 1.1 % (0-4); Hematocrit 47.9 % (42-52); Hemoglobin 16.4 g/dl (14.0-18.0); Imm Gran Abs Auto 0.05 X10*3/uL (0.00-0.03); Imm Gran Pct Auto 0.3 % (0.0-0.4); Lymphocytes Absolute Auto 1.6 X10*3/uL (1.2-4.9); Mean Corpuscular HGB Conc 34.2 g/dl (31.0-36.0); Mean Corpuscular Hemoglobin 30.2 pg (27.0-33.0); Mean Corpuscular Volume 88.2 fL (80-98); Mean Platelet Volume 10.3 fL (9.4-12.4); Monocytes Absolute Auto 0.8 X10*3/uL (0.1-1.2); Monocytes Percent Auto 5.2 % (2-11); Neutrophils Percent Auto 83.1 % (45-73); Platelet Count 245 X10*3/uL (160-400); Red Blood Count 5.43 X10*6/uL (4.60-5.80); Red Cell Distribution Width 12.1 % (11.0-16.0); White Blood Count 15.6 X10*3/uL (4.8-10.8)
[2021-02-13 13:33] LABS: Anion Gap 16 (12-20); Blood Urea Nitrogen 16 mg/dL (9-16); Calcium 9.8 mg/dL (8.4-10.2); Carbon Dioxide 23 mmol/L (22-29); Chloride 106 mmol/L (96-108); Creatinine Clr Calc Pharmacy 94.3; Estimated Glomerular Filt Rate > 60; Glucose Random 118 mg/dL (60-115); Potassium 4.2 mmol/L (3.3-5.1); Sodium 141 mmol/L (135-145)
[2021-02-13 14:00] VITALS: RESP 18
[2021-02-13 14:27] VITALS: RESP 18
[2021-02-13] MEDS: HYDROmorphone HCl 1 MG/ML SYRINGE IVPUSH (14:27)
[2021-02-13] MEDS: Tamsulosin HCL 0.4 MG CAPSULE PO (16:06)
[2021-02-13] MEDS: methylPREDNISolone Sod Succ 125 MG/2 ML VIAL 60 MG IVPUSH (16:06)
[2021-02-13] MEDS: oxyCODONE HCl Immed Release 5 MG TABLET 10 MG PO (16:27)
[2021-02-13 16:49] LABS: Glucose Urine UA NEG (NEG); Leukocyte Esterase Urine NEG (NEG); Nitrite Urine NEG (NEG); Specific Gravity - Urine >= 1.030 (1.005-1.025); UACC Culture Trigger NO; Urine Blood 1+ (NEG); Urine Ketones >=80 MG/DL (NEG); Urine Protein 1+ MG/DL (NEG-TRACE)
[2021-02-13 16:50] LABS: Appearance Urine CLEAR; Color Urine YELLOW
[2021-02-13 17:04] LABS: Amorphous Sediment Urine 1+ /LPF; Bacteria Urine 1+ /LPF; Squamous Epithelial Cell Urine 1+ /LPF; WBC Urine 0 /HPF (0-4)
== END 2021-02-13 17:37 | disposition home or self-care (01) ==
PROVIDERS: Emergency Provider Emergency Medicine
DX: N20.0 Calculus of kidney (principal); R10.32 Left lower quadrant pain; F12.90 Cannabis use, unspecified, uncomplicated; F17.210 Nicotine dependence, cigarettes, uncomplicated; Z71.6 Tobacco abuse counseling
CPT/HCPCS: 36415; 76770; 80048; 81001; 85025; 96365; 96375; 99285; J1170; J1885; J2270; J2405; J2930

== ENCOUNTER 2021-04-12 13:52 | Outpatient (REF) | payer OTHER, SELFPAY | END 2021-04-12 13:53 | disposition home or self-care (01) | LOC: HO.LAB 13:52 | PROVIDERS: Visit Provider Internal Medicine | DX: Z20.822 Contact with and (suspected) exposure to COVID-19 (principal) | CPT/HCPCS: C9803; U0003; U0005 ==

== ENCOUNTER 2021-10-05 06:38 | Emergency (ER) | payer OTHER, SELFPAY ==
--- NOTE | 2021-10-05 | ECG_ITS ---
Test Reason : chest pain Blood Pressure : / mmHG Vent. Rate : 101 BPM Atrial Rate : 101 BPM P-R Int : 156 ms QRS Dur : 072 ms QT Int : 340 ms P-R-T Axes : 070 063 055 degrees QTc Int : 440 ms Sinus tachycardia Normal ECG When compared with ECG of 06-NOV-2018 06:43, Vent. rate has increased BY 42 BPM Referred By: Generic ED Physician Electronically Signed By:TRUDY GURROLA MD
--- NOTE | ~2021-10-05 | XR_ITS ---
EXAMINATION: XR CHEST CLINICAL INFORMATION: Chest pain COMPARISON: None TECHNIQUE: Frontal view of the chest was obtained. FINDINGS: No significant abnormality is noted involving the heart, lungs, mediastinum, bony thorax or soft tissues. XR/XR chest 1V IMPRESSION: Unremarkable examination.
--- NOTE | 2021-10-05 06:56 | ED_ITS ---
HPI - Chest Pain General Chief Complaint: Chest Pain Stated Complaint: Chest pain/Drug Use Time Seen by Provider: 10/05/21 06:45 Source: patient Mode of arrival: ambulatory Limitations: no limitations History of Present Illness MD complaint: chest pain Pertinent past history: other (snorted $40 worth of cocaine last night) Onset (ago): hour(s) (several) Timing of current episode: constant Prior episodes: No Onset: associated with drug use Pain location: substernal Pain radiation: none Severity: severe Quality: heaviness Relieving factors: nothing Exacerbating factors: other (breathing, moving) Context: other (has not used cocaine in several months) Associated symptoms: dyspnea Treatment prior to arrival: none Related Data Previous Rx's Medication Instructions Recorded ibuprofen 600 mg tablet 600 mg PO Q8H PRN #30 tab 05/02/20 penicillin V potassium 500 mg 500 mg PO TID #21 tab 05/02/20 tablet tramadol 50 mg tablet 50 mg PO Q8H PRN #10 tab 05/02/20 dicyclomine 20 mg tablet 20 mg PO QID PRN #20 tab 07/20/20 meloxicam 15 mg tablet (Mobic) 15 mg PO DAILY 30 Days #30 tab 07/25/20 pyridoxine (vitamin B6) 100 mg 100 mg PO DAILY 90 Days #90 tab 07/25/20 tablet hydrocodone 5 mg-acetaminophen 325 1 tab PO Q6H PRN #12 tab 02/13/21 mg tablet ondansetron 4 mg disintegrating 4 mg PO Q8H PRN #20 tab 02/13/21 tablet prednisone 20 mg tablet 40 mg PO DAILY 5 Days #10 tab 02/13/21 tamsulosin 0.4 mg capsule 0.4 mg PO DAILY 7 Days #7 cap 02/13/21 Allergies Allergy/AdvReac Type Severity Reaction Status Date / Time No Known Allergies Allergy Verified 07/25/20 10:50 Review of Systems Review of Systems: Constitutional : No Weight loss, No Fever, No Chills ENT/Mouth : No sore throat, No Rhinorrhea Eyes: No Eye Pain, No Swelling Cardiovascular : pos Chest Pain, pos SOB, no Dyspnea on Exertion, No Orthopnea, No Edema, No Palpitations Respiratory : No Cough, No Sputum Gastrointestinal : pos Nausea, No Vomiting, No Diarrhea, No abdominal Pain, No Hematochezia, No Melena Genitourinary : No Dysuria, No Urinary Frequency Musculoskeletal : No joint pain, No Myalgias, No Joint Swelling Skin : No Skin Lesions, No rash Neuro : No Weakness, No Numbness, No Dizziness, No Headache Psych : No Anxiety/Panic, No Depression Heme/Lymph: No Bruising, No Lymphadenopathy Endocrine : No Polyuria, No Polydipsia All other systems reviewed and are negative [facility] Past Medical History Attestation statement: The following information was validated with the patient. Medical History Nephrolithiasis No pertinent past medical history Surgical History No pertinent past surgical history Social History Social History (Updated 10/05/21 @ 07:10 by Sheila Mazariegos DO) Alcohol intake: current Alcohol intake frequency: a few times a week Patient Tobacco Use Status: Current everyday Tobacco user Smoked in Last 30 Days: Yes Use of substances other than those prescribed or required for medical reasons: Yes Substance Use Type: Crack/Cocaine and Marijuana Advance Directives: No Advance Directives Information Provided: No Physical Exam Vital Signs: Vital Signs: Last Vital Signs Temp 98.4 F 10/05/21 09:14 Pulse 82 10/05/21 09:14 Resp 14 10/05/21 09:14 BP 111/67 10/05/21 09:14 Pulse Ox 97 10/05/21 09:14 BMI result Body Mass Index 24.3 Appearance: Alert. Oriented X3. Anxious, mild acute distress. hyperventilating but able to slow himself down when instructed to Eyes: Pupils equal, round and reactive to light. ENT: Pharynx normal. Neck: Normal inspection. Neck supple. CVS: Normal heart rate and rhythm. Pulses normal. Respiratory: No respiratory distress - initially hyperventilating. Breath sounds normal. Abdomen: Soft and non-tender. Skin: Skin warm and dry. pale skin color. Normal skin turgor. Extremities: No lower extremity edema. No calf ttp Neuro: Oriented X 3. No motor deficit. No sensory deficit. Course Course Course Narrative: patient asleep much more calm. repeat trop negative - feels better will offer care team consult to go to [facility] in [place] MDM - Chest Pain MDM Narrative Medical decision making narrative: 31 yo male with no sig PMH snorted cocaine last night around midnight now has chest pain and dyspnea. He is very anxious at this time. Will need EKG, troponin x2. I have ordered ativan IV as well as PO aspirin. Doubt PE. His pulses are intact so dissection seems atypical could be coronary vasospasm vs anxiety. Dispo per results and findings. Lab Data Result diagrams: 10/05/21 06:57 10/05/21 07:38 Labs: Lab Results 10/05/21 10/05/21 10/05/21 Range/Units 06:57 06:57 07:38 WBC 9.9 (4.8-10.8) X10*3/uL RBC 5.07 (4.60-5.80) X10*6/uL Hgb 15.5 (14.0-18.0) g/dl Hct 43.4 (42.0-52.0) % MCV 85.6 (80.0-98.0) fL MCH 30.6 (27.0-33.0) pg MCHC 35.7 (31.0-36.0) g/dl RDW 12.1 (11.0-16.0) % Plt Count 237 (160-400) X10*3/uL MPV 10.2 (9.4-12.4) fL Immature Gran % (Auto) 0.2 (0.0-0.4) % Neut % (Auto) 71.7 (45-73) % Lymph % (Auto) 20.5 (20-40) % [place] % (Auto) 7.0 (2-11) % Eos % (Auto) 0.2 (0-4) % Baso % (Auto) 0.4 (0-2) % Lymph # (Auto) 2.0 (1.2-4.9) X10*3/uL [place] # (Auto) 0.7 (0.1-1.2) X10*3/uL Eos # (Auto) 0.0 (0.0-0.4) X10*3/uL Baso # (Auto) 0.0 (0.0-0.2) X10*3/uL Abs Immat Gran (auto) 0.02 (0.00-0.03) X10*3/uL Absolute Neuts (auto) 7.1 (2.0-8.3) x10*3/uL Absolute Nucleated RBC 0.000 (0.0-0.012) X10*3/uL Nucleated RBC % (auto) 0.0 (0.0-0.2) /100WBC Sodium 139 (135-145) mmol/L Potassium 3.5 (3.3-5.1) mmol/L Chloride 106 (96-108) mmol/L Carbon Dioxide 22 (22-29) mmol/L Anion Gap 15 (12-20) BUN 9 (9-16) mg/dL Creatinine 0.78 (0.5-1.4) mg/dL Estim Creat Clear Calc 132.7 Estimated GFR > 60 Random Glucose 89 (60-115) mg/dL Calcium 9.8 (8.4-10.2) mg/dL Magnesium 1.7 (1.6-2.6) mg/dL Total Bilirubin 1.1 H (0.0-1.0) mg/dL Direct Bilirubin 0.4 (0.0-0.5) mg/dL AST 19 (5-37) U/L ALT 18 (0-40) U/L Alkaline Phosphatase 55 (39-117) U/L Troponin I High Sens < 3.5 (<3.5-35.0) ng/L Total Protein 7.1 (6.5-8.0) g/dL Albumin 4.4 (3.5-5.0) g/dL COVID-19 (JACEK) (Negative) COVID-19 Clin Com 10/05/21 10/05/21 Range/Units 07:40 08:17 WBC (4.8-10.8) X10*3/uL RBC (4.60-5.80) X10*6/uL Hgb (14.0-18.0) g/dl Hct (42.0-52.0) % MCV (80.0-98.0) fL MCH (27.0-33.0) pg MCHC (31.0-36.0) g/dl RDW (11.0-16.0) % Plt Count (160-400) X10*3/uL MPV (9.4-12.4) fL Immature Gran % (Auto) (0.0-0.4) % Neut % (Auto) (45-73) % Lymph % (Auto) (20-40) % [place] % (Auto) (2-11) % Eos % (Auto) (0-4) % Baso % (Auto) (0-2) % Lymph # (Auto) (1.2-4.9) X10*3/uL [place] # (Auto) (0.1-1.2) X10*3/uL Eos # (Auto) (0.0-0.4) X10*3/uL Baso # (Auto) (0.0-0.2) X10*3/uL Abs Immat Gran (auto) (0.00-0.03) X10*3/uL Absolute Neuts (auto) (2.0-8.3) x10*3/uL Absolute Nucleated RBC (0.0-0.012) X10*3/uL Nucleated RBC % (auto) (0.0-0.2) /100WBC Sodium (135-145) mmol/L Potassium (3.3-5.1) mmol/L Chloride (96-108) mmol/L Carbon Dioxide (22-29) mmol/L Anion Gap (12-20) BUN (9-16) mg/dL Creatinine (0.5-1.4) mg/dL Estim Creat Clear Calc Estimated GFR Random Glucose (60-115) mg/dL Calcium (8.4-10.2) mg/dL Magnesium (1.6-2.6) mg/dL Total Bilirubin (0.0-1.0) mg/dL Direct Bilirubin (0.0-0.5) mg/dL AST (5-37) U/L ALT (0-40) U/L Alkaline Phosphatase (39-117) U/L Troponin I High Sens < 3.5 (<3.5-35.0) ng/L Total Protein (6.5-8.0) g/dL Albumin (3.5-5.0) g/dL COVID-19 (JACEK) Negative (Negative) COVID-19 Clin Com See Note ECG Data ECG #1: Attestation: I personally reviewed and interpreted this ECG as follows: ECG interpretation date: 10/05/21 ECG interpretation time: 06:56 Interpretation: Rate: 101 Rhythm: sinus tachycardia Hope: normal Normal P waves. Normal KEITH. Normal QRS complex. ST T wave : no RENEA qTC: normal prior studies: normal The study has been interpreted contemporaneously by me. Discharge Plan Discharge Clinical Impression: Cocaine abuse Chest pain Qualifiers: Chest pain type: precordial pain Qualified Code(s): R07.2 - Precordial pain Patient Disposition: Xfer Other Transfer Details: [facility] Instructions: Chest Pain (ED), Cocaine Abuse (ED) Additional Instructions: return to ED for any worsening symptoms or concerns please go to [facility] as planned Prescriptions: No Action dicyclomine 20 mg tablet 20 mg PO QID PRN (Reason: abdominal pain) Qty: 20 0RF ibuprofen 600 mg tablet 600 mg PO Q8H PRN (Reason: pain) Qty: 30 0RF penicillin V potassium 500 mg tablet 500 mg PO TID Qty: 21 0RF tramadol 50 mg tablet 50 mg PO Q8H PRN (Reason: pain) Qty: 10 0RF hydrocodone-acetaminophen 5-325 mg tablet 1 tab PO Q6H PRN (Reason: pain) Qty: 12 0RF prednisone 20 mg tablet 40 mg PO DAILY 5 Days Qty: 10 0RF tamsulosin 0.4 mg capsule 0.4 mg PO DAILY 7 Days Qty: 7 0RF ondansetron 4 mg tablet,disintegrating 4 mg PO Q8H PRN (Reason: nausea and vomiting) Qty: 20 0RF pyridoxine (vitamin B6) 100 mg tablet 100 mg PO DAILY 90 Days Qty: 90 1RF meloxicam [Mobic] 15 mg tablet 15 mg PO DAILY 30 Days Qty: 30 0RF
[2021-10-05 07:08] LABS: MANUAL DIFF FLAG NO
[2021-10-05 07:11] LABS: Basophils Percent Auto 0.4 % (0-2); Eosinophils Percent Auto 0.2 % (0-4); Hematocrit 43.4 % (42.0-52.0); Hemoglobin 15.5 g/dl (14.0-18.0); Imm Gran Abs Auto 0.02 X10*3/uL (0.00-0.03); Imm Gran Pct Auto 0.2 % (0.0-0.4); Lymphocytes Percent Auto 20.5 % (20-40); Mean Corpuscular HGB Conc 35.7 g/dl (31.0-36.0); Mean Corpuscular Hemoglobin 30.6 pg (27.0-33.0); Mean Corpuscular Volume 85.6 fL (80.0-98.0); Mean Platelet Volume 10.2 fL (9.4-12.4); Monocytes Absolute Auto 0.7 X10*3/uL (0.1-1.2); Neutrophils Absolute Auto 7.1 x10*3/uL (2.0-8.3); Neutrophils Percent Auto 71.7 % (45-73); Platelet Count 237 X10*3/uL (160-400); Red Blood Count 5.07 X10*6/uL (4.60-5.80); Red Cell Distribution Width 12.1 % (11.0-16.0); White Blood Count 9.9 X10*3/uL (4.8-10.8)
[2021-10-05 07:14] VITALS: BP 125/81; PULSE 94; RESP 14; TEMP 37.2; O2SAT 99; BMI 24.3
[2021-10-05] MEDS: LORazepam 2 MG/ML VIAL 1 MG IVPUSH (07:16)
[2021-10-05] MEDS: Aspirin 81 MG TAB.CHEW 324 MG PO (07:16)
[2021-10-05] MEDS: ondansetron HCL 4 MG/2 ML VIAL IVPUSH (07:17)
[2021-10-05 07:23] VITALS: BP 139/88; PULSE 89; RESP 12; TEMP 37.2; O2SAT 99
[2021-10-05 07:32] LABS: Troponin-I High Sensitivity < 3.5 ng/L (<3.5-35.0)
[2021-10-05 08:04] LABS: COVID-19 Test Negative (Negative); IDNOW Serial# 16C4AD1C
[2021-10-05 08:21] LABS: Alanine Aminotransferase 18 U/L (0-40); Albumin Level 4.4 g/dL (3.5-5.0); Alkaline Phosphatase 55 U/L (39-117); Anion Gap 15 (12-20); Aspartate Amino Transferase 19 U/L (5-37); Bilirubin Direct 0.4 mg/dL (0.0-0.5); Bilirubin Total 1.1 mg/dL (0.0-1.0); Blood Urea Nitrogen 9 mg/dL (9-16); Calcium 9.8 mg/dL (8.4-10.2); Carbon Dioxide 22 mmol/L (22-29); Chloride 106 mmol/L (96-108); Creatinine Clr Calc Pharmacy 132.7; Estimated Glomerular Filt Rate > 60; Glucose Random 89 mg/dL (60-115); Magnesium 1.7 mg/dL (1.6-2.6); Potassium 3.5 mmol/L (3.3-5.1); Sodium 139 mmol/L (135-145); Total Protein 7.1 g/dL (6.5-8.0)
[2021-10-05 08:51] LABS: Troponin-I High Sensitivity < 3.5 ng/L (<3.5-35.0)
[2021-10-05 09:14] VITALS: BP 111/67; PULSE 82; RESP 14; TEMP 36.9; O2SAT 97
--- NOTE | 2021-10-05 09:53 | MHC.RECOVSUP ---
Recovery Support note: Patient is a 31 year old [place]olan speaking male who presented to [facility] ED reporting chest pain after using cocaine. This pattern chart writer met with patient to discuss substance use and treatment options. Patient reports he hadn't used cocaine in about 2-3 months however relapsed while drinking. Patient reports he has been drinking heavily over the past several months, reporting 6-8 shots of liquor a day or every other day. Patient reports he starts to experience withdrawal symptoms when he goes a day without drinking. Patient is motivated to maintain sobriety and is interested in going to [facility]. This pattern chart writer will assist patient in referring to [facility] facilities.
--- NOTE | 2021-10-05 11:33 | MHC.RECOVSUP ---
Recovery Support note: Patient accepted to [facility] and will transport himself. Discussed case with patient's ED provider and RN.
== END 2021-10-05 12:15 | disposition other institution (70) ==
PROVIDERS: Emergency Provider Emergency Medicine
DX: R07.2 Precordial pain (principal); F14.10 Cocaine abuse, uncomplicated; R06.02 Shortness of breath; F17.200 Nicotine dependence, unspecified, uncomplicated; F41.9 Anxiety disorder, unspecified; Z20.822 Contact with and (suspected) exposure to COVID-19
CPT/HCPCS: 36415; 71045; 80048; 80076; 83735; 84484; 85025; 87635; 93005; 96374; 96375; 99284; J2060; J2405

== ENCOUNTER 2021-11-10 14:32 | Emergency (ER) | payer OTHER, SELFPAY ==
--- NOTE | ~2021-11-10 | XR_ITS ---
EXAMINATION: XR FINGER, RIGHT CLINICAL INFORMATION: Trauma COMPARISON: None TECHNIQUE: Three views of the right index finger. XR/XR finger RT min 2V FINDINGS/IMPRESSION: No acute fracture or dislocation. Soft tissue swelling is noted along the dorsal aspect of the second PIP joint. Joint spaces are maintained.
[2021-11-10 14:52] VITALS: BP 124/73; PULSE 77; TEMP 36.9; O2SAT 97; BMI 24.3
--- NOTE | 2021-11-10 15:01 | ED.EXTPRO ---
HPI - Extremity Problem General Chief complaint: Extremity Injury, Upper Stated complaint: hand inj at work Time Seen by Provider: 11/10/21 15:01 Source: patient Mode of arrival: ambulatory Limitations: no limitations History of Present Illness HPI Narrative: 31 y/o right hand dominant male presents to the ER with right index finger pain after he got angry and punched a wall at work 20 minutes ago. He initially was worried he dislocated his right index finger but reports it feels better now. It is bruised at the middle knuckle with swelling. He is able to bend and extend the finger but it hurts. He denies any pain in the hand or to the other fingers. MD Complaint: joint swelling and joint pain Onset (ago): minute(s) (20) Pain Consistency: intermittent Location: right and upper extremity Severity scale (1-10): 5 Quality: aching Radiation: none Relieving factors: immobilization Exacerbating factors: range of motion and palpation Associated symptoms: denies other symptoms Related Data Previous Rx's Medication Instructions Recorded ibuprofen 600 mg tablet 600 mg PO Q8H PRN #30 tab 05/02/20 penicillin V potassium 500 mg 500 mg PO TID #21 tab 05/02/20 tablet tramadol 50 mg tablet 50 mg PO Q8H PRN #10 tab 05/02/20 dicyclomine 20 mg tablet 20 mg PO QID PRN #20 tab 07/20/20 meloxicam 15 mg tablet (Mobic) 15 mg PO DAILY 30 Days #30 tab 07/25/20 pyridoxine (vitamin B6) 100 mg 100 mg PO DAILY 90 Days #90 tab 07/25/20 tablet hydrocodone 5 mg-acetaminophen 325 1 tab PO Q6H PRN #12 tab 02/13/21 mg tablet ondansetron 4 mg disintegrating 4 mg PO Q8H PRN #20 tab 02/13/21 tablet prednisone 20 mg tablet 40 mg PO DAILY 5 Days #10 tab 02/13/21 tamsulosin 0.4 mg capsule 0.4 mg PO DAILY 7 Days #7 cap 02/13/21 Allergies Allergy/AdvReac Type Severity Reaction Status Date / Time No Known Allergies Allergy Verified 11/10/21 14:55 Review of Systems Review of Systems: Constitutional: No Fever, No Chills Cardiovascular: No Chest Pain, No SOB Gastrointestinal: No Nausea, No Vomiting Musculoskeletal: + joint pain, No Myalgias Skin: No Skin Lesions, No rash Neuro: No Weakness, + Numbness Psych: No Anxiety/Panic, No Depression Heme/Lymph: + Bruising, No Lymphadenopathy PMFSH Past Medical History Medical History Nephrolithiasis No pertinent past medical history Surgical History No pertinent past surgical history Social History Social History (Updated 10/05/21 @ 07:10 by Sheila Mazariegos DO) Alcohol intake: current Alcohol intake frequency: a few times a week Patient Tobacco Use Status: Current everyday Tobacco user Substance Use Type: Crack/Cocaine and Marijuana Advance Directives: No Advance Directives Information Provided: No Physical Exam Vital Signs: Vital Signs: Last Vital Signs Temp 98.4 F 11/10/21 14:52 Pulse 77 11/10/21 14:52 BP 124/73 11/10/21 14:52 Pulse Ox 97 11/10/21 14:52 BMI result Body Mass Index 24.3 Appearance: Alert. Oriented X3. No acute distress. HEENT: normal inspection CVS: Normal heart rate and rhythm. Pulses normal. Respiratory: No respiratory distress. Skin: Skin warm and dry. Normal skin color. Normal skin turgor. No rashes. Extremities: dorsal aspect of the index finger with moderate swelling and early ecchymosis of the PIP joint with some tenderness, pain upon flexion past 90 degrees and full extension. <3 sec cap refill. normal movement of all otehr digits and no metacarpal tenderness. Neuro: Oriented X 3. No motor deficit. No sensory deficit. Course Course Course Narrative: 31-year-old male presents to the ER with right index finger pain and swelling after he punched a wall at work. Pain is at the PIP joint with pain upon flexion and full extension of the digit. No metacarpal tenderness Neurovascularly intact distally. X-ray pending. Reevaluation(s) Reevaluation #1: X-ray showing no fracture dislocation, soft tissue swelling is noted along the dorsal aspect of the 2nd PIP joint. Most likely a sprain and contusion. He is stable for discharge home with supportive care and outpatient follow-up p.r.n.. Critical Care Time Critical Care Time Critical Care Time: No Discharge Plan Discharge Clinical Impression: Contusion of finger, Finger sprain Patient Disposition: Home, Self-Care Instructions: Finger Sprain (ED) Additional Instructions: Your x-ray today did not show any broken bones. Recommend using ice to the area several times per day. Take Motrin and/or Tylenol as needed for pain. Follow up with your doctor as needed. Prescriptions: No Action dicyclomine 20 mg tablet 20 mg PO QID PRN (Reason: abdominal pain) Qty: 20 0RF ibuprofen 600 mg tablet 600 mg PO Q8H PRN (Reason: pain) Qty: 30 0RF penicillin V potassium 500 mg tablet 500 mg PO TID Qty: 21 0RF tramadol 50 mg tablet 50 mg PO Q8H PRN (Reason: pain) Qty: 10 0RF hydrocodone-acetaminophen 5-325 mg tablet 1 tab PO Q6H PRN (Reason: pain) Qty: 12 0RF prednisone 20 mg tablet 40 mg PO DAILY 5 Days Qty: 10 0RF tamsulosin 0.4 mg capsule 0.4 mg PO DAILY 7 Days Qty: 7 0RF ondansetron 4 mg tablet,disintegrating 4 mg PO Q8H PRN (Reason: nausea and vomiting) Qty: 20 0RF pyridoxine (vitamin B6) 100 mg tablet 100 mg PO DAILY 90 Days Qty: 90 1RF meloxicam [Mobic] 15 mg tablet 15 mg PO DAILY 30 Days Qty: 30 0RF Stand Alone Forms: Work/School Release
== END 2021-11-10 15:31 | disposition home or self-care (01) ==
PROVIDERS: Emergency Provider Emergency Medicine
DX: S63.610A Unspecified sprain of right index finger, initial encounter (principal); S60.021A Contusion of right index finger without damage to nail, initial encounter; W22.09XA Striking against other stationary object, initial encounter; Y93.9 Activity, unspecified; Y92.9 Unspecified place or not applicable; Y99.0 Civilian activity done for income or pay
CPT/HCPCS: 73140; 99283

== ENCOUNTER 2021-11-17 10:04 | Emergency (ER) | payer OTHER, SELFPAY ==
--- NOTE | ~2021-11-17 | CT_ITS ---
EXAMINATION: CT ABDOMEN AND PELVIS WITHOUT CONTRAST CLINICAL INFORMATION: Left lower quadrant abdominal pain, diarrhea and vomiting. COMPARISON: 07/22/2020 CT scan of the abdomen and pelvis. TECHNIQUE: Multidetector volumetric imaging was performed from the superior aspect of the liver through the pubic symphysis. Sagittal and coronal reformatted images were obtained on the technologist's workstation. Plaque of intravenous and oral contrast limits visceral evaluation. This CT examination was performed using dose optimization techniques as appropriate, variously including the following: *Automated exposure control *Adjustment of mA and/or kV according to patient size (this includes techniques or standardized protocols for targeted exams where dose is matched to indication/reason for exam; i.e. extremities or head) *Use of iterative reconstruction technique DLP: 430 mGy-cm FINDINGS: LUNG BASES: The visualized lung bases are unremarkable. LIVER, GALLBLADDER, AND BILIARY TREE: Unremarkable. PANCREAS: Unremarkable. SPLEEN: Unremarkable. ADRENAL GLANDS: Unremarkable. KIDNEYS AND URETERS: Mild increased medullary attenuation is seen bilaterally. Larger intrarenal calculi are seen bilaterally as well. One of the largest is seen in the interpolar right kidney measuring 0.5 cm (image 40, series 6). One of the largest in the lower pole the left kidney measures 0.3 cm (image 44, series 6). No hydroureteronephrosis. BLADDER: Unremarkable. GASTROINTESTINAL TRACT: The stomach and small bowel unremarkable. The appendix is not confidently identified. No inflammatory changes are seen in the right lower quadrant or at the base of the cecum. The colon and rectum are unremarkable. ABDOMINAL WALL: No significant hernia is appreciated. LYMPH NODES: Normal. VASCULAR: Unremarkable. PELVIC VISCERA: Unremarkable. OSSEOUS STRUCTURES: Unremarkable. CT/CT abdomen pelvis wo con IMPRESSION: 1. No acute intra-abdominal/pelvic abnormality. 2.Renal findings suggest medullary nephrocalcinosis with small nonobstructing intrarenal calculi bilaterally as detailed above. No hydroureteronephrosis. Fleischner guidelines were followed.
[2021-11-17 10:13] VITALS: BP 131/87; BP 149/101; PULSE 70; PULSE 93; RESP 21; TEMP 36.6; O2SAT 100; BMI 24.3
[2021-11-17] MEDS: 0.9 % Sodium Chloride 1,000 ML 999 ML IV (11:29)
[2021-11-17] MEDS: Morphine Sulfate 4 MG/ML CARTRIDGE IVPUSH (11:29)
[2021-11-17 11:31] VITALS: BP 116/82; PULSE 62; RESP 18; O2SAT 98
--- NOTE | 2021-11-17 11:36 | ED_ITS ---
HPI - Abdominal Pain General Chief Complaint: Abdominal Pain Stated Complaint: BLOOD IN STOOL,ABD PAIN Time Seen by Provider: 11/17/21 10:31 Source: patient and EMS Mode of arrival: EMS Limitations: no limitations History of Present Illness HPI narrative: 31-year-old male previously healthy here with reports of 3 days of vomiting and diarrhea with associated left-sided abdominal pain. Patient tells me that his v omiting and diarrhea have seemed to improve his last episode of diarrhea with 05:00 this morning. Prior to today is diarrhea seemed like it was brown and watery. Today he had 1 episode of diarrhea that seemed dark. No bright red blood in the stool. No rectal pain or pressure. Patient has also had some intermittent vomiting although this seems to be improving and it is nonbilious and nonbloody. Patient denies any associated fevers, chills or urinary symptoms. Patient received fentanyl 50 mcg prior to arrival by EMS as well as 4 mg of IV Zofran Related Data Previous Rx's Medication Instructions Recorded ibuprofen 600 mg tablet 600 mg PO Q8H PRN #30 tab 05/02/20 penicillin V potassium 500 mg 500 mg PO TID #21 tab 05/02/20 tablet tramadol 50 mg tablet 50 mg PO Q8H PRN #10 tab 05/02/20 dicyclomine 20 mg tablet 20 mg PO QID PRN #20 tab 07/20/20 meloxicam 15 mg tablet (Mobic) 15 mg PO DAILY 30 Days #30 tab 07/25/20 pyridoxine (vitamin B6) 100 mg 100 mg PO DAILY 90 Days #90 tab 07/25/20 tablet hydrocodone 5 mg-acetaminophen 325 1 tab PO Q6H PRN #12 tab 02/13/21 mg tablet ondansetron 4 mg disintegrating 4 mg PO Q8H PRN #20 tab 02/13/21 tablet prednisone 20 mg tablet 40 mg PO DAILY 5 Days #10 tab 02/13/21 tamsulosin 0.4 mg capsule 0.4 mg PO DAILY 7 Days #7 cap 02/13/21 dicyclomine 10 mg capsule 10 mg PO TID PRN #20 cap 11/17/21 ondansetron 4 mg disintegrating 4 mg PO Q6H PRN #10 tab 11/17/21 tablet Allergies Allergy/AdvReac Type Severity Reaction Status Date / Time No Known Allergies Allergy Verified 11/10/21 14:55 Review of Systems Review of Systems Yes all other systems are reviewed and are negative Constitutional: Reports no additional constitutional complaints, Denies body ache(s), Denies chills, Denies fever(s), Denies headache(s) and Denies weakness Eyes: Reports no additional eye complaints and Denies change in vision Reports system reviewed and no additional complaints, except as documented, Denies dizziness, Denies headache(s), Denies nasal congestion, Denies nasal discharge and Denies neck pain Cardiovascular: Reports no additional cardiovascular complaints, Denies chest pain, Denies leg edema and Denies dyspnea Respiratory: Reports no additional respiratory complaints, Denies cough and Denies dyspnea Gastrointestinal: Reports no additional gastrointestinal complaints, Reports abdominal pain, Reports diarrhea, Reports nausea and Reports vomiting Genitourinary: Denies urinary incontinence Musculoskeletal: Reports no additional musculoskeletal complaints, Denies back pain, Denies arthralgias, Denies joint swelling, Denies neck pain, Denies numbness and Denies tingling Skin/Breast: Reports system reviewed and no additional complaints, except as docu and Denies rash Reports system reviewed and no additional complaints, except as documented, Denies dizziness, Denies headache(s), Denies numbness, Denies tingling and Denies weakness PMFSH Past Medical History Attestation statement: The following information was validated with the patient. Source: old records reviewed and nursing notes reviewed Medical History Nephrolithiasis No pertinent past medical history Surgical History No pertinent past surgical history Social History Social History Alcohol intake: current Alcohol intake frequency: holidays/special occasions only Alcohol type: beer Patient Tobacco Use Status: Current everyday Tobacco user Smoked in Last 30 Days: Yes Use of substances other than those prescribed or required for medical reasons: No Substance Use Type: Marijuana Substance Use Frequency: Daily Advance Directives: No Advance Directives Information Provided: No Physical Exam ED Vital Signs: Vital Signs - 24 hr 11/17/21 10:13 11/17/21 11:31 11/17/21 12:00 Temperature 97.9 F Pulse Rate 70 62 66 Respiratory Rate 21 H 18 Blood Pressure 131/87 116/82 116/82 Pulse Oximetry 100 98 BMI result Body Mass Index 24.3 Const General: cooperative, healthy appearing, comfortable and no acute distress Orientation/consciousness: patient oriented x3 Limitations: no limitations [facility] Head: Yes normal to inspection Ears: hearing grossly normal bilaterally General nose exam: Normal external nose present Face and sinus: Yes normal facial exam Mouth: Normal oral and palatal mucosa present Teeth and gingiva: dentition normal Throat: Yes posterior oropharynx normal, Yes tonsils normal and Yes uvula midline Eyes General: appearance normal, both eyes and all related structures Pupils: Equal, round and reactive pupils present Neck Neck: Yes normal visual inspection, Yes full ROM, Yes no lymphadenopathy and Yes no meningeal signs Chest Chest palpation & inspection: normal inspection of the chest Resp Effort & Inspection: normal respiratory effort Auscultation: clear to auscultation bilaterally Cardio Rate: regular rate Rhythm: regular rhythm Peripheral pulses: Peripheral pulses 2+ throughout GI Other: MANJU tech present-occult card sent Inspection: Yes normal to inspection Palpation (GI): Soft to palpation and Tenderness to palpation present (GI) (LLQ/LUQ with rebound and guarding) Rectal Exam - Male: Yes visual inspection normal General: Yes no CVA tenderness Back/Spine/Pelvis Back: no CVA tenderness Skin General skin exam: no rashes or lesions noted Neuro General: patient oriented x3, moves all extremities and no meningeal signs Cranial nerves: Yes Equal, round and reactive pupils present Cognition (Neuro): normal cognition Extrem General: Yes normal to inspection, Yes no pedal edema and Yes no calf tenderness Course Course Course Narrative: 31-year-old male here with reports of left-sided abdominal pain with vomiting and diarrhea for the last 3 days. On exam the patient has tenderness the left upper and left lower quadrant. He did report 1 episode of dark stool. His vomiting and diarrhea seems to be improving but is abdominal pain has continued. Will check labs, UA, CT, provide analgesia Reevaluation(s) Reevaluation #1: CT scan shows no acute finding. Labs are unremarkable. Stool is negative for occult blood. Patient feels somewhat improved. Will try p.o. trial Time: 12:55 Reevaluation #2: Patient able to tolerate 8 oz of sp cammie with no additional vomiting episodes. He is feeling improved. Repeat abdominal exam unchanged. Likely viral gastroenteritis reviewed worrisome signs and symptoms and when to return to the emergency department. Comfortable discharge home. Time: 13:15 MDM - Abdominal Pain MDM Narrative Medical decision making narrative: Diverticulitis Differential Diagnosis Differential diagnosis: Likely gastroenteritis Medical Records Attestation: I reviewed the patient's medical records. Lab Data Attestation: I reviewed the patient's lab results. Result diagrams: 11/17/21 11:34 11/17/21 11:34 Labs: Lab Results 11/17/21 11/17/21 11/17/21 Range/Units 11:34 11:34 11:57 WBC 7.2 (4.8-10.8) X10*3/uL RBC 4.92 (4.60-5.80) X10*6/uL Hgb 15.0 (14.0-18.0) g/dl Hct 42.9 (42.0-52.0) % MCV 87.2 (80.0-98.0) fL MCH 30.5 (27.0-33.0) pg MCHC 35.0 (31.0-36.0) g/dl RDW 12.1 (11.0-16.0) % Plt Count 196 (160-400) X10*3/uL MPV 10.2 (9.4-12.4) fL Immature Gran % (Auto) 0.3 (0.0-0.4) % Neut % (Auto) 75.5 H (45-73) % Lymph % (Auto) 14.4 L (20-40) % [place] % (Auto) 9.3 (2-11) % Eos % (Auto) 0.4 (0-4) % Baso % (Auto) 0.1 (0-2) % Lymph # (Auto) 1.0 L (1.2-4.9) X10*3/uL [place] # (Auto) 0.7 (0.1-1.2) X10*3/uL Eos # (Auto) 0.0 (0.0-0.4) X10*3/uL Baso # (Auto) 0.0 (0.0-0.2) X10*3/uL Abs Immat Gran (auto) 0.02 (0.00-0.03) X10*3/uL Absolute Neuts (auto) 5.5 (2.0-8.3) x10*3/uL Absolute Nucleated RBC 0.000 (0.0-0.012) X10*3/uL Nucleated RBC % (auto) 0.0 (0.0-0.2) /100WBC Sodium 141 (135-145) mmol/L Potassium 3.7 (3.3-5.1) mmol/L Chloride 105 (96-108) mmol/L Carbon Dioxide 26 (22-29) mmol/L Anion Gap 14 (12-20) BUN 14 D (9-16) mg/dL Creatinine 0.87 (0.5-1.4) mg/dL Estim Creat Clear Calc 119.0 Estimated GFR > 60 Random Glucose 94 (60-115) mg/dL Calcium 9.5 (8.4-10.2) mg/dL Total Bilirubin 0.8 (0.0-1.0) mg/dL Direct Bilirubin 0.3 (0.0-0.5) mg/dL AST 18 (5-37) U/L ALT 17 (0-40) U/L Alkaline Phosphatase 50 (39-117) U/L Total Protein 7.0 (6.5-8.0) g/dL Albumin 4.1 (3.5-5.0) g/dL Lipase 6 L (8-78) U/L Urine Color YELLOW Urine Appearance CLOUDY Urine pH 6.0 (5.0-8.0) Ur Specific Terry >= 1.030 H (1.005-1.025) Urine Protein 1+ H (NEG-TRACE) MG/DL Urine Glucose (UA) NEG (NEG) MG/DL Urine Ketones 15 (NEG) MG/DL Urine Blood NEG (NEG) Urine Nitrite NEG (NEG) Ur Leukocyte Esterase NEG (NEG) Urine RBC 1-4 (0) /HPF Urine WBC 1-4 (0-4) /HPF Ur Squamous Epith Cells NONE /LPF Urine Bacteria NONE /LPF Urine Mucus 4+ /LPF Stool Occult Blood (NEGATIVE) 11/17/21 Range/Units 11:57 WBC (4.8-10.8) X10*3/uL RBC (4.60-5.80) X10*6/uL Hgb (14.0-18.0) g/dl Hct (42.0-52.0) % MCV (80.0-98.0) fL MCH (27.0-33.0) pg MCHC (31.0-36.0) g/dl RDW (11.0-16.0) % Plt Count (160-400) X10*3/uL MPV (9.4-12.4) fL Immature Gran % (Auto) (0.0-0.4) % Neut % (Auto) (45-73) % Lymph % (Auto) (20-40) % [place] % (Auto) (2-11) % Eos % (Auto) (0-4) % Baso % (Auto) (0-2) % Lymph # (Auto) (1.2-4.9) X10*3/uL [place] # (Auto) (0.1-1.2) X10*3/uL Eos # (Auto) (0.0-0.4) X10*3/uL Baso # (Auto) (0.0-0.2) X10*3/uL Abs Immat Gran (auto) (0.00-0.03) X10*3/uL Absolute Neuts (auto) (2.0-8.3) x10*3/uL Absolute Nucleated RBC (0.0-0.012) X10*3/uL Nucleated RBC % (auto) (0.0-0.2) /100WBC Sodium (135-145) mmol/L Potassium (3.3-5.1) mmol/L Chloride (96-108) mmol/L Carbon Dioxide (22-29) mmol/L Anion Gap (12-20) BUN (9-16) mg/dL Creatinine (0.5-1.4) mg/dL Estim Creat Clear Calc Estimated GFR Random Glucose (60-115) mg/dL Calcium (8.4-10.2) mg/dL Total Bilirubin (0.0-1.0) mg/dL Direct Bilirubin (0.0-0.5) mg/dL AST (5-37) U/L ALT (0-40) U/L Alkaline Phosphatase (39-117) U/L Total Protein (6.5-8.0) g/dL Albumin (3.5-5.0) g/dL Lipase (8-78) U/L Urine Color Urine Appearance Urine pH (5.0-8.0) Ur Specific Terry (1.005-1.025) Urine Protein (NEG-TRACE) MG/DL Urine Glucose (UA) (NEG) MG/DL Urine Ketones (NEG) MG/DL Urine Blood (NEG) Urine Nitrite (NEG) Ur Leukocyte Esterase (NEG) Urine RBC (0) /HPF Urine WBC (0-4) /HPF Ur Squamous Epith Cells /LPF Urine Bacteria /LPF Urine Mucus /LPF Stool Occult Blood NEGATIVE (NEGATIVE) Imaging Data CT scan - abdomen: Attestation: I personally reviewed and interpreted this imaging study as follows: Radiologist's impression: FINDINGS: LUNG BASES: The visualized lung bases are unremarkable.? LIVER, GALLBLADDER, AND BILIARY TREE: Unremarkable. PANCREAS: Unremarkable.? SPLEEN: Unremarkable.? ADRENAL GLANDS: Unremarkable.? KIDNEYS AND URETERS: Mild increased medullary attenuation is seen bilaterally. Larger intrarenal calculi are seen bilaterally as well. One of the largest is seen in the interpolar right kidney measuring 0.5 cm (image 40, series 6). One of the largest in the lower pole the left kidney measures 0.3 cm (image 44, series 6). No hydroureteronephrosis. BLADDER: Unremarkable.? GASTROINTESTINAL TRACT: The stomach and small bowel unremarkable. The appendix is not confidently identified. No inflammatory changes are seen in the right lower quadrant or at the base of the cecum. The colon and rectum are unremarkable. ABDOMINAL WALL: No significant hernia is appreciated.? LYMPH NODES: Normal. VASCULAR: Unremarkable. PELVIC VISCERA: Unremarkable.? OSSEOUS STRUCTURES: Unremarkable.? CT/CT abdomen pelvis wo con IMPRESSION: ? 1. No acute intra-abdominal/pelvic abnormality. 2.Renal findings suggest medullary nephrocalcinosis with small nonobstructing intrarenal calculi bilaterally as detailed above. No hydroureteronephrosis. ? Fleischner guidelines were followed. Discharge Plan Discharge Clinical Impression: Gastroenteritis Patient Disposition: Home, Self-Care Instructions: Gastroenteritis (DC) Additional Instructions: Start with clear liquids and advance diet as tolerated Return for severe pain, intractable vomiting, high fever Follow-up with your doctor for any persistent symptoms Prescriptions: New dicyclomine 10 mg capsule 10 mg PO TID PRN (Reason: abdominal pain) Qty: 20 0RF ondansetron 4 mg tablet,disintegrating 4 mg PO Q6H PRN (Reason: nausea and vomiting) Qty: 10 0RF No Action dicyclomine 20 mg tablet 20 mg PO QID PRN (Reason: abdominal pain) Qty: 20 0RF ibuprofen 600 mg tablet 600 mg PO Q8H PRN (Reason: pain) Qty: 30 0RF penicillin V potassium 500 mg tablet 500 mg PO TID Qty: 21 0RF tramadol 50 mg tablet 50 mg PO Q8H PRN (Reason: pain) Qty: 10 0RF hydrocodone-acetaminophen 5-325 mg tablet 1 tab PO Q6H PRN (Reason: pain) Qty: 12 0RF prednisone 20 mg tablet 40 mg PO DAILY 5 Days Qty: 10 0RF tamsulosin 0.4 mg capsule 0.4 mg PO DAILY 7 Days Qty: 7 0RF ondansetron 4 mg tablet,disintegrating 4 mg PO Q8H PRN (Reason: nausea and vomiting) Qty: 20 0RF pyridoxine (vitamin B6) 100 mg tablet 100 mg PO DAILY 90 Days Qty: 90 1RF meloxicam [Mobic] 15 mg tablet 15 mg PO DAILY 30 Days Qty: 30 0RF Referrals: Physician,None [Primary Care Provider] - Stand Alone Forms: Work/School Release Interventions: ED Discharge Assessment Last Done: 11/17/21 13:35 Discharge Date/Time: 11/17/21 13:37
[2021-11-17 11:37] LABS: MANUAL DIFF FLAG NO
[2021-11-17 11:39] LABS: Basophils Percent Auto 0.1 % (0-2); Eosinophils Percent Auto 0.4 % (0-4); Hematocrit 42.9 % (42.0-52.0); Imm Gran Abs Auto 0.02 X10*3/uL (0.00-0.03); Imm Gran Pct Auto 0.3 % (0.0-0.4); Lymphocytes Percent Auto 14.4 % (20-40); Mean Corpuscular Hemoglobin 30.5 pg (27.0-33.0); Mean Corpuscular Volume 87.2 fL (80.0-98.0); Mean Platelet Volume 10.2 fL (9.4-12.4); Monocytes Absolute Auto 0.7 X10*3/uL (0.1-1.2); Monocytes Percent Auto 9.3 % (2-11); Neutrophils Absolute Auto 5.5 x10*3/uL (2.0-8.3); Neutrophils Percent Auto 75.5 % (45-73); Platelet Count 196 X10*3/uL (160-400); Red Blood Count 4.92 X10*6/uL (4.60-5.80); Red Cell Distribution Width 12.1 % (11.0-16.0); White Blood Count 7.2 X10*3/uL (4.8-10.8)
[2021-11-17 11:58] LABS: Alanine Aminotransferase 17 U/L (0-40); Albumin Level 4.1 g/dL (3.5-5.0); Alkaline Phosphatase 50 U/L (39-117); Anion Gap 14 (12-20); Aspartate Amino Transferase 18 U/L (5-37); Bilirubin Direct 0.3 mg/dL (0.0-0.5); Bilirubin Total 0.8 mg/dL (0.0-1.0); Blood Urea Nitrogen 14 mg/dL (9-16); Calcium 9.5 mg/dL (8.4-10.2); Carbon Dioxide 26 mmol/L (22-29); Chloride 105 mmol/L (96-108); Estimated Glomerular Filt Rate > 60; Glucose Random 94 mg/dL (60-115); Lipase 6 U/L (8-78); Potassium 3.7 mmol/L (3.3-5.1); Sodium 141 mmol/L (135-145)
[2021-11-17 12:00] VITALS: BP 116/82; PULSE 66
[2021-11-17 12:04] LABS: Appearance Urine CLOUDY; Color Urine YELLOW; Glucose Urine UA NEG (NEG); Leukocyte Esterase Urine NEG (NEG); Nitrite Urine NEG (NEG); OBS1 NEGATIVE (NEGATIVE); Specific Gravity - Urine >= 1.030 (1.005-1.025); UACC Culture Trigger NO; Urine Blood NEG (NEG); Urine Ketones 15 MG/DL (NEG); Urine Protein 1+ MG/DL (NEG-TRACE)
[2021-11-17 12:05] LABS: OBS Int Ctl Valid YES
[2021-11-17 12:16] LABS: Mucus Urine 4+ /LPF
--- NOTE | 2021-11-17 12:58 | PC.NURSE ---
pt a&ox3, vss, reports reduction in abd pain radiating to his lower back - now 11/20. IVF finished and disconnected. no new orders at this time.
== END 2021-11-17 13:37 | disposition home or self-care (01) ==
PROVIDERS: Nurse Practitioner Family; Emergency Provider Emergency Medicine Emergency Medical Services
DX: K52.9 Noninfective gastroenteritis and colitis, unspecified (principal)
CPT/HCPCS: 36415; 74176; 80048; 80076; 81001; 81003; 82272; 83690; 85025; 96361; 96374; 99284; J2270

== ENCOUNTER 2023-02-11 17:21 | Inpatient (IN) | payer MEDICAID, SELFPAY ==
--- NOTE | ~2023-02-11 | CT_ITS ---
EXAMINATION: CT ABDOMEN AND PELVIS WITHOUT CONTRAST CLINICAL INFORMATION: Right flank pain. COMPARISON: CT abdomen/pelvis 11/17/2021. TECHNIQUE: Multidetector volumetric imaging was performed from the superior aspect of the liver through the pubic symphysis. Sagittal and coronal reformatted images were obtained on the technologist's workstation. This CT examination was performed using dose optimization techniques as appropriate, variously including the following: *Automated exposure control *Adjustment of mA and/or kV according to patient size (this includes techniques or standardized protocols for targeted exams where dose is matched to indication/reason for exam; i.e. extremities or head) *Use of iterative reconstruction technique DLP: 480 mGy-cm FINDINGS: The lack of intravenous contrast limits evaluation of the solid visceral organs including the liver, spleen, pancreas, and kidneys. LUNG BASES: No focal consolidation or pleural effusion. LIVER, GALLBLADDER, AND BILIARY TREE: The liver is enlarged measuring 18.3 cm craniocaudally and demonstrates decreased parenchymal attenuation suggesting hepatic steatosis. No discrete focal liver lesion in this limited noncontrast examination. No biliary ductal dilatation. The gallbladder is unremarkable with no evidence of radiopaque gallstones, gallbladder wall thickening, or obvious pericholecystic inflammatory changes. PANCREAS: Limited noncontrast examination. No significant peripancreatic fat stranding or free fluid. SPLEEN: Unremarkable. ADRENAL GLANDS: Unremarkable. KIDNEYS AND URETERS: Moderate right hydroureteronephrosis with a 0.6 cm calculus in the proximal right ureter at the level of L2-L3 measuring approximately 906 Hounsfield units. Multiple additional bilateral renal calculi. No evidence of left-sided hydroureteronephrosis. No significant perinephric fat stranding. BLADDER: Unremarkable. GASTROINTESTINAL TRACT: The stomach and the small bowel are nondilated. Normal appendix. Colonic diverticulosis without significant pericolonic inflammatory changes. No evidence of bowel obstruction. ABDOMINAL WALL: No significant hernia is appreciated. LYMPH NODES: No lymphadenopathy. VASCULAR: Normal caliber of the abdominal aorta. PELVIC VISCERA: Unremarkable. OSSEOUS STRUCTURES: No acute or aggressive appearing osseous findings. CT/CT abdomen pelvis wo IV con IMPRESSION: 1. Moderate right hydroureteronephrosis with a 0.6 cm calculus in the proximal right ureter. 2. Multiple additional bilateral renal calculi. 3. Diverticulosis but no evidence of acute diverticulitis. 4. Hepatomegaly and hepatic steatosis.
--- NOTE | ~2023-02-11 | FL_ITS ---
EXAMINATION: XR FLUOROSCOPY WITH IMAGES CLINICAL INFORMATION: Right ureteral stone. COMPARISON: CT of 02/11/2023. TECHNIQUE: Fluoroscopy Supervised By: Dr. Eric Petersen. Fluoroscopy Time: 6.2 seconds. Cumulative Dose: 1.33 mGy. Images: 1. FINDINGS: Single intraoperative fluoroscopic view demonstrates the right upper collecting system and proximal portion of the ureter to have a guidewire in place. There appears to be mild hydronephrosis. FL/FL guidance in OR IMPRESSION: Intraoperative fluoroscopy for urological procedure.
[2023-02-11 17:43] VITALS: BP 143/87; PULSE 65; RESP 18; TEMP 36.9; O2SAT 100; BMI 25.1
--- NOTE | 2023-02-11 17:43 | ED_ITS ---
HPI - Abdominal Pain General Chief Complaint: Abdominal Pain Stated Complaint: passing kidney stone? Time Seen by Provider: 02/11/23 17:55 Source: patient and RN notes reviewed Mode of arrival: ambulatory Limitations: no limitations History of Present Illness HPI narrative: This is a 32-year-old male presenting to the emergency department for evaluation of right-sided flank pain since 4:30PM today. Patient admits that earlier this morning he noticed that his urine was bright colored and cloudy. He states that he suddenly developed right-sided flank pain which has worsened. Endorsing nausea, vomiting. Denies any fevers, chills. denies taking any medications prior to his arrival. No other complaints or concerns at this time. MD elicited complaint: flank pain Pertinent past history: kidney stones Onset (ago): hour(s) Pain Consistency: constant Location: R flank Severity: severe Quality: sharp Exacerbating factors: nothing Relieving factors: nothing Associated symptoms: nausea and vomiting Related Data Previous Rx's Medication Instructions Recorded naproxen 500 mg tablet 500 mg PO BID PRN pain 7 days #14 02/12/23 tabs phenazopyridine 100 mg tablet 100 mg PO TID PRN Spasm 4 days #12 02/12/23 (Pyridium) tabs tamsulosin 0.4 mg capsule 0.4 mg PO BEDTIME 14 days #14 caps 02/12/23 Allergies Allergy/AdvReac Type Severity Reaction Status Date / Time No Known Allergies Allergy Verified 11/10/21 14:55 Review of Systems Review of Systems Yes all other systems are reviewed and are negative Constitutional: Reports as per HPI ON LICENSE OF [facility] Past Medical History Medical History Nephrolithiasis No pertinent past medical history Smoker Surgical History No pertinent past surgical history Social History Social History Household Members: Family Housing: Apartment Do you presently have visiting nurse or other home services: No Alcohol intake: current Alcohol intake frequency: a few times a month Alcohol type: beer Patient Tobacco Use Status: Current everyday Tobacco user Tobacco use type: Cigarette Cigarettes Per Day: 10 Years Smoked: 13 Smoked in Last 30 Days: No e-Cigarette/Vaping Use: Currently Using Patient Interested in Nicotine Replacement: No Patient Given Instructions on How to Stop Smoking: No Second Hand Smoke Exposure: No Use of substances other than those prescribed or required for medical reasons: Yes Substance Use Type: Marijuana Substance Use Frequency: Daily Last Used Substance: Just Prior to Admission Currently Displaying Signs/Symptoms of Drug Intoxication Withdrawal: No Any prior treatment program specific to substance use: No Have you been hit, kicked, punched, or otherwise hurt by someone within the past year? If so, by whom?: No Do you feel safe in your current relationship?: Yes Is there a partner from a previous relationship who is making you feel unsafe now?: No Are you made to feel afraid or neglected: No Are you DNR?: No Advance Directives: No Advance Directives Information Provided: No Advance Directives on File: No Do you have thoughts of harming others: None Do you have a plan to hurt others: No Plan Recently lost weight without trying: No Eating poorly because of decreased appetite: No Nutrition Risks: No Nutritional Risk Poor oral hygiene: No Physical Exam ED Vital Signs: Vital Signs - 24 hr 02/11/23 21:33 02/11/23 22:13 Temperature 97.9 F 97.1 F Pulse Rate 64 66 Respiratory Rate 16 18 Blood Pressure 121/84 138/89 Pulse Oximetry 99 100 Oxygen Delivery Method Room Air Room Air BMI result Body Mass Index 25.1 Const Other: diaphoretic, appears in acute distress secondary to pain. General: cooperative Orientation/consciousness: patient oriented x3 Limitations: no limitations [facility] Head: Yes normal to inspection, Yes normocephalic and Yes atraumatic Ears: hearing grossly normal bilaterally General nose exam: Normal external nose present Face and sinus: Yes normal facial exam Mouth: Normal oral and palatal mucosa present, oropharynx normal and moist mucous membranes Throat: Yes posterior oropharynx normal Eyes General: appearance normal, both eyes and all related structures Eyelids: Yes eyelids normal Conjunctivae: conjunctivae normal Sclerae: sclerae normal Pupils: Equal, round and reactive pupils present EOM: EOMs intact bilaterally Neck Neck: Yes normal visual inspection, Yes full ROM and Yes no lymphadenopathy Lymphatic: no lymphadenopathy noted Chest Chest palpation & inspection: normal inspection of the chest Resp Effort & Inspection: normal respiratory effort and able to speak in complete s entences Auscultation: clear to auscultation bilaterally, no crackles, no rales, no rhonchi and no wheezes Cardio Rate: regular rate Rhythm: regular rhythm Heart sounds: S1 normal heart sound present and S2 normal heart sound present GI Other: abdomen is soft, nontender, nondistended, and normoactive bowel sounds present Inspection: Yes normal to inspection General: Yes no CVA tenderness Back/Spine/Pelvis Back: no CVA tenderness Skin General skin exam: no rashes or lesions noted Trauma: no lacerations or abrasions Wounds: no wounds Neuro General: patient oriented x3 and moves all extremities Cranial nerves: Yes Equal, round and reactive pupils present Extrem General: Yes normal to inspection Right upper extremity: normal to inspection Left upper extremity: normal to inspection Right lower extremity: normal to inspection Left lower extremity: normal to inspection Course Course Course Narrative: RME - 32 yo male with history of recurrent kidney stones presents to the ER for evaluation of acute onset of right flank pain and pink urine that started today 1 hour ago. Severe pain and vomiting in triage. Plan: IM Toradol, labs, UA and CT scan abd/pelvis Reevaluation(s) Reevaluation #1: Labs without any signs of leukocytosis, H&H stable. patient's pain much improved after receiving Dilaudid [address] abdomen and pelvis revealing Moderate right hydroureteronephrosis with a 0.6 cm calculus in theproximal right ureter and Multiple additional bilateral renal calculi Diverticulosis but no evidence of acute diverticulitis. Hepatomegaly and hepatic steatosis. Consult to Dr. Hauser given CT. given sign out to my colleague Negro Jeff PA-C pending recommendations from Dr. Hauser. Patient will be admitted to the services of Dr. hauser Time: 19:58 Medical Decision Making Medical Decision Making [facility] Narrative: 32-year-old male presenting to the emergency department for evaluation of severeright-sided flank pain, nausea and vomiting, since today. On arrival, patient appears very uncomfortable secondary to pain. Patient medicated with Toradol, morphine, Zofran and 1 L of IV fluids. Basic labs were obtained. Patient's pain did not improve, Dilaudid 1 mg IV was administered. Given presentation, kidney stone is suspected Plan labs, UA, CT abdomen without contrast Differential Diagnosis Differential Diagnoses: The differential diagnosis associated with the presentation includes pyelonephritis, nephrolithiasis, hydronephrosis, cystitis Admission/Observation Consideration of admission/observation: Escalation of care including admission/observation considered given level of discomfort as well as questionable impacted stone, hospital admission was considered. Consult Healthcare Provider Management of the patient was discussed with: Ring Maker Dr. Hauser Lab Data MDM Lab Attestation statement: I reviewed the patient's lab results. No leukocytosis, H&H stable 02/11/23 17:56 02/11/23 17:56 Labs: Lab Results 02/11/23 02/11/23 02/11/23 Range/Units 17:56 17:56 21:50 WBC 10.4 (4.8-10.8) X10*3/uL RBC 5.48 (4.60-5.80) X10*6/uL Hgb 16.8 (14.0-18.0) g/dl Hct 47.8 (42.0-52.0) % MCV 87.2 (80.0-98.0) fL MCH 30.7 (27.0-33.0) pg MCHC 35.1 (31.0-36.0) g/dl RDW 12.0 (11.0-16.0) % Plt Count 254 D (160-400) X10*3/uL MPV 10.1 (9.4-12.4) fL Immature Gran % (Auto) 0.4 (0.0-0.4) % Neut % (Auto) 61.9 (45-73) % Lymph % (Auto) 26.9 (20-40) % [place] % (Auto) 7.3 (2-11) % Eos % (Auto) 2.8 (0-4) % Baso % (Auto) 0.7 (0-2) % Lymph # (Auto) 2.8 (1.2-4.9) X10*3/uL [place] # (Auto) 0.8 (0.1-1.2) X10*3/uL Eos # (Auto) 0.3 (0.0-0.4) X10*3/uL Baso # (Auto) 0.1 (0.0-0.2) X10*3/uL Abs Immat Gran (auto) 0.04 H (0.00-0.03) X10*3/uL Absolute Neuts (auto) 6.4 (2.0-8.3) x10*3/uL Absolute Nucleated RBC 0.000 (0.0-0.012) X10*3/uL Nucleated RBC % (auto) 0.0 (0.0-0.2) /100WBC Sodium 142 (135-145) mmol/L Potassium 4.2 (3.3-5.1) mmol/L Chloride 105 (96-108) mmol/L Carbon Dioxide 19 L (22-29) mmol/L Anion Gap 22 H (12-20) BUN 17 H (9-16) mg/dL Creatinine 1.10 (0.5-1.4) mg/dL Estim Creat Clear Calc 93.2 Estimated GFR > 60 Random Glucose 97 (60-115) mg/dL Calcium 10.3 H D (8.4-10.2) mg/dL Magnesium 1.9 (1.6-2.6) mg/dL Total Bilirubin 0.5 (0.0-1.0) mg/dL Direct Bilirubin 0.2 (0.0-0.5) mg/dL AST 27 (5-37) U/L ALT 22 (0-40) U/L Alkaline Phosphatase 68 (39-117) U/L Total Protein 8.0 (6.5-8.0) g/dL Albumin 5.0 (3.5-5.0) g/dL Urine Color Yellow Urine Appearance Clear Urine pH 6.0 (5.0-9.0) Ur Specific [place] >= 1.030 H (1.005-1.025) Urine Protein Trace (Neg-Trace) mg/dL Urine Glucose (UA) Negative (Negative) mg/dL Urine Ketones 15 (Negative) mg/dL Urine Blood Moderate (2+) H (Negative) Urine Nitrite Negative (Negative) Ur Leukocyte Esterase Negative (Negative) Urine RBC 11-20 H (0-2) /HPF Urine WBC 0-5 (0-5) /HPF Ur Squamous Epith Cells 0-2 (0-2) /HPF Urine Bacteria None Seen (None Seen) Hyaline Casts 0-2 (0-2) /LPF Radiology Impression Discussion of test interpretation with radiology: I have reviewed the radiologist's reading. External Record Review External record reviewed: Inpatient record, Office record, Outpatient record, Prior outpatient labs, Prior outpatient radiology, Primary care record and Outside ED record Medications Administered Generic Name Dose Route Start Last Admin Trade Name Freq PRN Reason Stop Dose Admin Acetaminophen 650 mg 02/11/23 22:23 02/12/23 15:14 Acetaminophen 325 Mg Tablet PO 650 mg Q6H PRN Administration Pain, Mild (Pain Scale 1-3) Sodium Chloride 1,000 mls @ 100 mls/hr 02/11/23 22:30 02/12/23 09:56 Ns IVCONT 100 mls/hr .Q10H JAGRUTI Administration Ketorolac Tromethamine 15 mg 02/11/23 22:26 02/12/23 10:37 Ketorolac Tromethamine 15 Mg/Ml Vial IVPUSH 15 mg Q6H PRN Administration Pain, Moderate(Pain Scale 4-6) Ondansetron HCl 4 mg 02/11/23 22:23 02/11/23 23:43 Ondansetron Hcl 4 Mg/2 Ml Vial IVPUSH 4 mg Q8H PRN Administration Nausea and Vomiting Oxycodone HCl 5 mg 02/11/23 22:23 02/12/23 15:14 Oxycodone Hcl Immed Release 5 Mg Tablet PO 5 mg Q6H PRN Administration Pain, Severe (Pain Scale 7-10) Sodium Chloride 3 ml 02/12/23 00:00 02/12/23 14:43 0.9 % Sodium Chloride Flush 3 Ml Syringe IVFLUSH Not Given QSHIFT [facility] Discontinued Medications Generic Name Dose Route Start Last Admin Trade Name Freq PRN Reason Stop Dose Admin Hydromorphone HCl 1 mg 02/11/23 18:19 02/11/23 18:23 Hydromorphone Hcl 1 Mg/Ml Syringe IVPUSH 02/11/23 18:20 1 mg ONCE ONE Administration Protocol Sodium Chloride 1,000 mls @ 999 mls/hr 02/11/23 18:00 02/11/23 19:30 Ns IVCONT 02/11/23 19:00 Infused .Q1H1M JAGRUTI Infusion Levofloxacin 500 mg in 100 mls @ 100 mls/hr 02/11/23 22:27 02/12/23 00:02 Levaquin IV 02/11/23 23:26 Infused PREOP ONE Infusion Ketorolac Tromethamine 30 mg 02/11/23 17:42 02/11/23 17:49 Ketorolac Tromethamine 30 Mg/Ml Vial IM 02/11/23 17:43 30 mg ONCE ONE Administration Morphine Sulfate 4 mg 02/11/23 17:47 02/11/23 18:02 Morphine Sulfate 4 Mg/Ml Cartridge IVPUSH 02/11/23 17:48 4 mg ONCE ONE Administration Protocol Ondansetron HCl 4 mg 02/11/23 17:47 02/11/23 18:01 Ondansetron Hcl 4 Mg/2 Ml Vial IVPUSH 02/11/23 17:48 4 mg ONCE ONE Administration Phenazopyridine HCl 100 mg 02/12/23 18:09 02/12/23 18:27 Phenazopyridine Hcl 100 Mg Tablet PO 02/12/23 18:10 100 mg ONCE ONE Administration Discharge Plan Discharge Clinical Impression: Obstructive uropathy Patient Disposition: Admitted As Inpatient Interventions: Admission Worksheet (ED) Last Done: 02/12/23 12:18 Discharge Date/Time: 02/12/23 12:18
[2023-02-11] MEDS: Ketorolac Tromethamine 30 MG/ML VIAL IM (17:49)
[2023-02-11 18:01] LABS: MANUAL DIFF FLAG NO
[2023-02-11] MEDS: ondansetron HCL 4 MG/2 ML VIAL IVPUSH ×2 (18:01→23:43)
[2023-02-11] MEDS: Morphine Sulfate 4 MG/ML CARTRIDGE IVPUSH (18:02)
[2023-02-11] MEDS: 0.9 % Sodium Chloride 1,000 ML 999 ML IVCONT (18:03)
[2023-02-11 18:07] LABS: Basophils Absolute Auto 0.1 X10*3/uL (0.0-0.2); Basophils Percent Auto 0.7 % (0-2); Eosinophils Absolute Auto 0.3 X10*3/uL (0.0-0.4); Eosinophils Percent Auto 2.8 % (0-4); Hematocrit 47.8 % (42.0-52.0); Hemoglobin 16.8 g/dl (14.0-18.0); Imm Gran Abs Auto 0.04 X10*3/uL (0.00-0.03); Imm Gran Pct Auto 0.4 % (0.0-0.4); Lymphocytes Absolute Auto 2.8 X10*3/uL (1.2-4.9); Lymphocytes Percent Auto 26.9 % (20-40); Mean Corpuscular HGB Conc 35.1 g/dl (31.0-36.0); Mean Corpuscular Hemoglobin 30.7 pg (27.0-33.0); Mean Corpuscular Volume 87.2 fL (80.0-98.0); Mean Platelet Volume 10.1 fL (9.4-12.4); Monocytes Absolute Auto 0.8 X10*3/uL (0.1-1.2); Monocytes Percent Auto 7.3 % (2-11); Neutrophils Absolute Auto 6.4 x10*3/uL (2.0-8.3); Neutrophils Percent Auto 61.9 % (45-73); Platelet Count 254 X10*3/uL (160-400); Red Blood Count 5.48 X10*6/uL (4.60-5.80); White Blood Count 10.4 X10*3/uL (4.8-10.8)
[2023-02-11 18:22] LABS: Alanine Aminotransferase 22 U/L (0-40); Alkaline Phosphatase 68 U/L (39-117); Anion Gap 22 (12-20); Aspartate Amino Transferase 27 U/L (5-37); Bilirubin Direct 0.2 mg/dL (0.0-0.5); Bilirubin Total 0.5 mg/dL (0.0-1.0); Blood Urea Nitrogen 17 mg/dL (9-16); Calcium 10.3 mg/dL (8.4-10.2); Carbon Dioxide 19 mmol/L (22-29); Chloride 105 mmol/L (96-108); Creatinine Clr Calc Pharmacy 93.2; Estimated Glomerular Filt Rate > 60; Glucose Random 97 mg/dL (60-115); Magnesium 1.9 mg/dL (1.6-2.6); Potassium 4.2 mmol/L (3.3-5.1); Sodium 142 mmol/L (135-145)
[2023-02-11] MEDS: HYDROmorphone HCl 1 MG/ML SYRINGE IVPUSH (18:23)
--- NOTE | 2023-02-11 20:30 | PHA.MEDREC ---
Pharmacy Consult ? Medication Reconciliation Pharmacy has completed the medication reconciliation. Patient reports no medications except an occasion tylenol. Lisa Jennings, teresaD
[2023-02-11 21:33] VITALS: BP 121/84; PULSE 64; RESP 16; TEMP 36.6; O2SAT 99
[2023-02-11 22:01] LABS: Appearance Urine Clear; Color Urine Yellow; Glucose Urine UA Negative (Negative); Leukocyte Esterase Urine Negative (Negative); Nitrite Urine Negative (Negative); Specific Gravity - Urine >= 1.030 (1.005-1.025); UMIC TRIGGER UACC YES; Urine Blood Moderate (2+) (Negative); Urine Ketones 15 mg/dL (Negative); Urine Protein Trace mg/dL (Neg-Trace)
--- NOTE | 2023-02-11 22:11 | PC.NURSE ---
Pt arrived from ED to ED Overflow at 22:05. VSS. Pt A&OX4, pleasant and cooperative. Pt oriented to unit, staff and call kirk system. LS-CTA, no cough and no sob. BS+. Pt denies N/V at this time and states abdominal and right flank pain is a 2/10 and he doesn't require any intervention at this time. Pt instructed to void in urinal so staff can strain urine. Pt also needs a urine sent to lab. IV in RAC patent. Pt ambulates independently with a steady gait. Awaiting orders. Will continue to monitor.
[2023-02-11 22:12] LABS: Hyaline Casts Urine 0-2 /LPF (0-2); Squamous Epithelial Cell Urine 0-2 /HPF (0-2); WBC Urine 0-5 /HPF (0-5)
[2023-02-11 22:13] VITALS: BP 138/89; PULSE 66; RESP 18; TEMP 36.2; O2SAT 100
[2023-02-11 22:20] LABS: Bacteria Urine None Seen (None Seen)
[2023-02-11] MEDS: levoFLOXacin/D5W 500 MG/100 ML PIGGYBACK 100 MG IV (23:02)
[2023-02-11] MEDS: 0.9 % Sodium Chloride 1,000 ML 100 ML IVCONT (23:02)
[2023-02-11] MEDS: Ketorolac Tromethamine 15 MG/ML VIAL IVPUSH (23:43)
[2023-02-12] VITALS (13 sets, daily range): BP systolic 112–157; BP diastolic 75–96; PULSE 51–83; RESP 16–20; TEMP 36.3–37.2; O2SAT 97–100; BMI 26.8
[2023-02-12] MEDS: 0.9 % Sodium Chloride 1,000 ML 100 ML IVCONT (09:56)
[2023-02-12] MEDS: Ketorolac Tromethamine 15 MG/ML VIAL IVPUSH (10:37)
[2023-02-12] MEDS: Acetaminophen 325 MG TABLET 650 MG PO (15:14)
[2023-02-12] MEDS: oxyCODONE HCl Immed Release 5 MG TABLET PO (15:14)
--- NOTE | 2023-02-12 16:47 | PM.UROCN ---
History of Present Illness Consult details Consult date: 02/12/23 Narrative: Consulting complaint right renal stone 32-year-old male Prior stone former Present to emergency room with sudden onset right flank pain Urine has been dark colored Associated nausea and vomiting Denies fever, chills, gross hematuria Pain to a 8/10 resolves with IV pain medication of fluids Calcium 10.3, WBC 10.4, creatinine 1.1 Imaging - Moderate right hydroureteronephrosis with a 0.6 cm calculus in the proximal right ureter at the level of L2-L3 Recommendation for intervention with right stent placement followed by ESWL Review of Systems Constitutional: Constitutional: Reports as per HPI and Reports no additional constitutional complaints Cardiovascular: Cardiovascular: Reports as per HPI and Reports no additional cardiovascular complaints Respiratory: Respiratory: Reports as per HPI and Reports no additional respiratory complaints Gastrointestinal: Gastrointestinal: Reports as per HPI and Reports no additional gastrointestinal complaints Genitourinary: Genitourinary: Reports as per HPI Musculoskeletal: Musculoskeletal: Reports no additional musculoskeletal complaints and Reports as per HPI Neurologic: Reports system reviewed and no additional complaints, except as documented and Reports as per HPI [facility] Past Medical History Medical History Nephrolithiasis No pertinent past medical history Surgical History Surgical History No pertinent past surgical history Social History Social History Household Members: Family Housing: Apartment Do you presently have visiting nurse or other home services: No Alcohol intake: current Alcohol intake frequency: a few times a month Alcohol type: beer Patient Tobacco Use Status: Current everyday Tobacco user Tobacco use type: Cigarette Cigarettes Per Day: 10 Years Smoked: 13 Smoked in Last 30 Days: No e-Cigarette/Vaping Use: Currently Using Patient Interested in Nicotine Replacement: No Patient Given Instructions on How to Stop Smoking: No Second Hand Smoke Exposure: No Use of substances other than those prescribed or required for medical reasons: Yes Substance Use Type: Marijuana Substance Use Frequency: Daily Last Used Substance: Just Prior to Admission Currently Displaying Signs/Symptoms of Drug Intoxication Withdrawal: No Any prior treatment program specific to substance use: No Have you been hit, kicked, punched, or otherwise hurt by someone within the past year? If so, by whom?: No Do you feel safe in your current relationship?: Yes Is there a partner from a previous relationship who is making you feel unsafe now?: No Are you made to feel afraid or neglected: No Are you DNR?: No Advance Directives: No Advance Directives Information Provided: No Advance Directives on File: No Do you have thoughts of harming others: None Do you have a plan to hurt others: No Plan Recently lost weight without trying: No Eating poorly because of decreased appetite: No Nutrition Risks: No Nutritional Risk Poor oral hygiene: No Meds Allergies Allergy/AdvReac Type Severity Reaction Status Date / Time No Known Allergies Allergy Verified 11/10/21 14:55 Active Medications: Current Medications Acetaminophen (Acetaminophen 325 Mg Tablet) 650 mg PO Q6H PRN PRN Reason: Pain, Mild (Pain Scale 1-3) Last Admin: 02/12/23 15:14 Dose: 650 mg Sodium Chloride (Ns) 1,000 mls @ 100 mls/hr IVCONT .Q10H REPLACED BY [facility] Last Admin: 02/12/23 09:56 Dose: 100 mls/hr Ketorolac Tromethamine (Ketorolac Tromethamine 15 Mg/Ml Vial) 15 mg IVPUSH Q6H PRN PRN Reason: Pain, Moderate(Pain Scale 4-6) Last Admin: 02/12/23 10:37 Dose: 15 mg Morphine Sulfate (Morphine Sulfate 4 Mg/Ml Cartridge) 3 mg IVPUSH Q3H PRN; Protocol PRN Reason: Pain, Moderate(Pain Scale 4-6) Ondansetron HCl (Ondansetron Hcl 4 Mg/2 Ml Vial) 4 mg IVPUSH Q8H PRN PRN Reason: Nausea and Vomiting Last Admin: 02/11/23 23:43 Dose: 4 mg Oxycodone HCl (Oxycodone Hcl Immed Release 5 Mg Tablet) 5 mg PO Q6H PRN PRN Reason: Pain, Severe (Pain Scale 7-10) Last Admin: 02/12/23 15:14 Dose: 5 mg Sodium Chloride (0.9 % Sodium Chloride Flush 3 Ml Syringe) [facility] Last Admin: 02/12/23 14:43 Dose: Not Given Home Medications Medication Instructions Recorded Confirmed Last Taken Type acetaminophen 325 mg tablet 650 mg PO Q6H PRN Pain 02/11/23 02/11/23 Unknown History Physical Exam Vital Signs: Vital Signs: Last Vital Signs Temp 98.9 F 02/12/23 16:00 Pulse 60 02/12/23 16:00 Resp 16 02/12/23 16:00 BP 133/96 H 02/12/23 16:00 Pulse Ox 99 02/12/23 16:00 O2 Del Method Room Air 02/12/23 16:00 BMI result Body Mass Index 26.8 Const: General: cooperative, healthy appearing, comfortable and no acute distress Orientation/consciousness: patient oriented x3 HEENT: Face and sinus: Yes normal facial exam Mouth: moist mucous membranes Neck: Neck: Yes normal visual inspection, Yes full ROM and Yes trachea midline Chest: Chest palpation & inspection: normal inspection of the chest Resp: Effort & Inspection: normal respiratory effort, able to speak in complete sentences and no respiratory distress GI: Inspection: Yes normal to inspection Back/Spine/Pelvis: Cervical Spine: normal cervical lordosis Thoracic/Lumbar Spine: thoracic and lumbar spine normal to inspection Skin: General skin exam: no rashes or lesions noted Neuro: General: patient oriented x3, tone normal and moves all extremities Extrem: General: Yes normal to inspection and Yes capillary refill normal Results Labs 02/11/23 17:56 02/11/23 17:56 Labs: Abnormal lab results 02/11/23 02/11/23 02/11/23 Range/Units 17:56 17:56 21:50 Abs Immat Gran (auto) 0.04 H (0.00-0.03) X10*3/uL Carbon Dioxide 19 L (22-29) mmol/L Anion Gap 22 H (12-20) BUN 17 H (9-16) mg/dL Calcium 10.3 H D (8.4-10.2) mg/dL Ur Specific [place] >= 1.030 H (1.005-1.025) Urine Blood Moderate (2+) H (Negative) Urine RBC 11-20 H (0-2) /HPF Short CBC 02/11/23 Range/Units 17:56 WBC 10.4 (4.8-10.8) X10*3/uL Hgb 16.8 (14.0-18.0) g/dl Hct 47.8 (42.0-52.0) % Plt Count 254 D (160-400) X10*3/uL BMP 02/11/23 17:56 Sodium 142 Potassium 4.2 Chloride 105 Carbon Dioxide 19 L BUN 17 H Creatinine 1.10 Calcium 10.3 H D Liver Function 02/11/23 Range/Units 17:56 Total Bilirubin 0.5 (0.0-1.0) mg/dL Direct Bilirubin 0.2 (0.0-0.5) mg/dL AST 27 (5-37) U/L ALT 22 (0-40) U/L Alkaline Phosphatase 68 (39-117) U/L Albumin 5.0 (3.5-5.0) g/dL Urine 02/11/23 Range/Units 21:50 Urine Color Yellow Urine Appearance Clear Urine pH 6.0 (5.0-9.0) Ur Specific [place] >= 1.030 H (1.005-1.025) Urine Protein Trace (Neg-Trace) mg/dL Urine Glucose (UA) Negative (Negative) mg/dL All other labs normal. Assessment and Plan (1) Obstructive uropathy: Status: Acute Plan Cystoscopy, right retrograde, right stent placement Risks, benefits and alternatives to therapy were discussed. These include but are not limited to infection, bleeding, damage to local organs and tissues, need for further interventions. Anesthetic risks regarding cardiac arrhythmia, blood clots, and potential mortality were discussed. The patient understands the typical recovery time and the outpatient nature of the procedure. After consideration of these risks the patient gives full informed consent and they wish to move ahead with the procedure. Time Spent With Patient Time: Total time managing care of this patient today ____ minutes. Procedures Date of Service Date of Service: 02/12/23
--- NOTE | 2023-02-12 17:34 | HO.ANESPROP2 ---
HPI - Anesthesia Eval Consult details Narrative: Right ureter stone PMFSH Active Problems Active Problems: All Active Problems (Updated 02/11/23 @ 20:19 by Negro Jeff) Obstructive uropathy (Acute) Back pain (Acute) Past Medical History Medical History Nephrolithiasis No pertinent past medical history Smoker Family History Family history of problems with anesthesia: No Surgical History Surgical History No pertinent past surgical history History of Problems with Anesthesia: No Social History Social History Household Members: Family Housing: Apartment Do you presently have visiting nurse or other home services: No Alcohol intake: current Alcohol intake frequency: a few times a month Alcohol type: beer Patient Tobacco Use Status: Current everyday Tobacco user Tobacco use type: Cigarette Cigarettes Per Day: 10 Years Smoked: 13 Smoked in Last 30 Days: No e-Cigarette/Vaping Use: Currently Using Patient Interested in Nicotine Replacement: No Patient Given Instructions on How to Stop Smoking: No Second Hand Smoke Exposure: No Use of substances other than those prescribed or required for medical reasons: Yes Substance Use Type: Marijuana Substance Use Frequency: Daily Last Used Substance: Just Prior to Admission Currently Displaying Signs/Symptoms of Drug Intoxication Withdrawal: No Any prior treatment program specific to substance use: No Have you been hit, kicked, punched, or otherwise hurt by someone within the past year? If so, by whom?: No Do you feel safe in your current relationship?: Yes Is there a partner from a previous relationship who is making you feel unsafe now?: No Are you made to feel afraid or neglected: No Are you DNR?: No Advance Directives: No Advance Directives Information Provided: No Advance Directives on File: No Do you have thoughts of harming others: None Do you have a plan to hurt others: No Plan Recently lost weight without trying: No Eating poorly because of decreased appetite: No Nutrition Risks: No Nutritional Risk Poor oral hygiene: No Meds Allergies Allergy/AdvReac Type Severity Reaction Status Date / Time No Known Allergies Allergy Verified 11/10/21 14:55 Active Medications: Current Medications Acetaminophen (Acetaminophen 325 Mg Tablet) 650 mg PO Q6H PRN PRN Reason: Pain, Mild (Pain Scale 1-3) Last Admin: 02/12/23 15:14 Dose: 650 mg Sodium Chloride (Ns) 1,000 mls @ 100 mls/hr IVCONT .Q10H JAGRUTI Last Admin: 02/12/23 09:56 Dose: 100 mls/hr Ketorolac Tromethamine (Ketorolac Tromethamine 15 Mg/Ml Vial) 15 mg IVPUSH Q6H PRN PRN Reason: Pain, Moderate(Pain Scale 4-6) Last Admin: 02/12/23 10:37 Dose: 15 mg Morphine Sulfate (Morphine Sulfate 4 Mg/Ml Cartridge) 3 mg IVPUSH Q3H PRN; Protocol PRN Reason: Pain, Moderate(Pain Scale 4-6) Ondansetron HCl (Ondansetron Hcl 4 Mg/2 Ml Vial) 4 mg IVPUSH Q8H PRN PRN Reason: Nausea and Vomiting Last Admin: 02/11/23 23:43 Dose: 4 mg Oxycodone HCl (Oxycodone Hcl Immed Release 5 Mg Tablet) 5 mg PO Q6H PRN PRN Reason: Pain, Severe (Pain Scale 7-10) Last Admin: 02/12/23 15:14 Dose: 5 mg Sodium Chloride (0.9 % Sodium Chloride Flush 3 Ml Syringe) 3 ml IVFLUSH QSHIFT [facility] Last Admin: 02/12/23 14:43 Dose: Not Given Home Medications Medication Instructions Recorded Confirmed Last Taken Type acetaminophen 325 mg tablet 650 mg PO Q6H PRN Pain 02/11/23 02/11/23 Unknown History Exam Exam Date and Time: February 12, 2023 173 Height,Weight and Vital Signs: Height 5 ft 8 in Weight 79.9 kg Last Vital Signs Temp 98.9 F 02/12/23 16:00 Pulse 60 02/12/23 16:00 Resp 16 02/12/23 16:00 BP 133/96 H 02/12/23 16:00 Pulse Ox 99 02/12/23 16:00 O2 Del Method Room Air 02/12/23 16:00 Pertinent Lab Results Pertinent Lab Results: Laboratory Tests 02/11/23 02/11/23 02/11/23 17:56 17:56 21:50 WBC 10.4 RBC 5.48 Hgb 16.8 Hct 47.8 MCV 87.2 MCH 30.7 MCHC 35.1 RDW 12.0 Plt Count 254 D MPV 10.1 Immature Gran % (Auto) 0.4 Neut % (Auto) 61.9 Lymph % (Auto) 26.9 [place] % (Auto) 7.3 Eos % (Auto) 2.8 Baso % (Auto) 0.7 Lymph # (Auto) 2.8 [place] # (Auto) 0.8 Eos # (Auto) 0.3 Baso # (Auto) 0.1 Abs Immat Gran (auto) 0.04 H Absolute Neuts (auto) 6.4 Absolute Nucleated RBC 0.000 Nucleated RBC % (auto) 0.0 Sodium 142 Potassium 4.2 Chloride 105 Carbon Dioxide 19 L Anion Gap 22 H BUN 17 H Creatinine 1.10 Estim Creat Clear Calc 93.2 Estimated GFR > 60 Random Glucose 97 Calcium 10.3 H D Magnesium 1.9 Total Bilirubin 0.5 Direct Bilirubin 0.2 AST 27 ALT 22 Alkaline Phosphatase 68 Total Protein 8.0 Albumin 5.0 Urine Color Yellow Urine Appearance Clear Urine pH 6.0 Ur Specific [place] >= 1.030 H Urine Protein Trace Urine Glucose (UA) Negative Urine Ketones 15 Urine Blood Moderate (2+) H Urine Nitrite Negative Ur Leukocyte Esterase Negative Urine RBC 11-20 H Urine WBC 0-5 Ur Squamous Epith Cells 0-2 Urine Bacteria None Seen Hyaline Casts 0-2 Airway Mallampati Class: II TM Dist: >3cm Neck ROM: Full Loose/Missing/Broken Teeth: No Heart: RRR Lungs: CTA Assessment and Plan Assessment Anesthesia Assessment: Anesthesia Plan Discussed, Smoking Cess. Discussed and Chart Reviewed Final Anesthetic Review Family History of Problems with Anesthesia: No History of Problems with Anesthesia: No NPO: Yes ASA Class: II Final Preanesthetic Review: No Changes in Pt Med Stat, Meds/Allgs Chart Reviewed, Consent Obtained/Reviewed and Anes Risks/Benef Reviewed Patient Risk: Intermediate Procedure Risk: Low Anesthetic Plan Anesthetic Plan: MAC: Disposition: Standard PACU
--- NOTE | 2023-02-12 17:41 | MHC.SHP ---
Pre-Procedural Eval Section A Date of Service: 02/12/23 The patient is an INPATIENT: Yes Changes since office visit: No Cold of Flu in the past 2 weeks, No New Medical Problems, No Changes in Medication and No Patient answered all questions The History & Physical has been completed within 30 days and I have reviewed it.: Yes Section B Chief Complaint: Right ureteric stone Allergies: Allergies Allergy/AdvReac Type Severity Reaction Status Date / Time No Known Allergies Allergy Verified 11/10/21 14:55 Plan Diagnosis/Plan: Unchanged ( cystoscopy, right retrograde, right stent placement) I have reviewed the history and physical and performed a pertinent physical examination on my patient. No changes have occurred unless specified. Time Spent With Patient Time: Total time managing care of this patient today ____ minutes.
--- NOTE | 2023-02-12 18:10 | P.OP_ITS ---
Operative Note Operative Note Date of Service: 02/12/23 Narrative: PreOperative Diagnosis: right proximal ureteric stone Post Operative Diagnosis: right proximal ureteric stone Procedure: cystoscopy, right retrograde, right stent placement Surgeon: Dr Eric Petersen Anesthesia: sedation Indications for procedure: right proximal ureteric stone with persistent pain Procedure: After informed consent was verified the patient was brought to the operating room and placed in a supine position. Anesthesia was administered per protocol. The patient was placed in modified dorsal lithotomy position and prepped and draped in a sterile fashion. A safety pause time-out was performed. Laterality of procedure and antibiotics were confirmed, appropriate imaging was available A 22 [place] cystoscope was introduced per urethra. No abnormality was noted of urethra or bladder. Both ureteric orifices were seen in a normal position. The right ureter was cannulated with an open ended catheter and a retrograde examination was performed. filling defects seen in right proximal ureter . A Sensor guidewire was placed under fluoroscopy and a good coil was seen within the renal pelvis. A 6x26cm double J stent was advanced over the wire and up to the level of the renal pelvis under fluoroscopic and direct visualization. The stent was seen with appropriate coil within the renal pelvis and in the bladder after deployment. The patient tolerated the procedure well and was transferred in a stable condition to the recovery area. Pathology: none Drains: stent as above
--- NOTE | 2023-02-12 18:14 | P.DS_ITS ---
DS: Providers Provider Date of Service: 02/12/23 Date of admission: 02/11/23 22:24 Primary care physician: None Physician DS: Diagnosis Discharge Diagnosis (1) Obstructive uropathy: Status: Acute DS: Summary Hospital Course Hospital Course: underwent procedure with stent placement Status at Discharge Functional status at discharge: independent ambulation Overall status at discharge: patient is back to baseline Time Spent with Patient Time attestation: Total time managing care of this patient today ____ minutes. Discharge coordination time: Less than 30 minutes Quality: Safe Use of Opioids Does Pt have an Active Cancer Diagnosis on the Problem List?: No Quality: Stroke Does the patient have a stroke diagnosis?: No Physical Exam Vital Signs: Vital Signs: Last Vital Signs Temp 98.9 F 02/12/23 16:00 Pulse 60 02/12/23 16:00 Resp 16 02/12/23 16:00 BP 133/96 H 02/12/23 16:00 Pulse Ox 99 02/12/23 16:00 O2 Del Method Room Air 02/12/23 16:00 BMI result Body Mass Index 26.8 DS: Data Data Completed and Pending Labs on day of discharge: Laboratory Results - last 24 hr 02/11/23 02/11/23 17:56 21:50 Sodium 142 Potassium 4.2 Chloride 105 Carbon Dioxide 19 L Anion Gap 22 H BUN 17 H Creatinine 1.10 Estim Creat Clear Calc 93.2 Estimated GFR > 60 Random Glucose 97 Calcium 10.3 H D Magnesium 1.9 Total Bilirubin 0.5 Direct Bilirubin 0.2 AST 27 ALT 22 Alkaline Phosphatase 68 Total Protein 8.0 Albumin 5.0 Urine Color Yellow Urine Appearance Clear Urine pH 6.0 Ur Specific [place] >= 1.030 H Urine Protein Trace Urine Glucose (UA) Negative Urine Ketones 15 Urine Blood Moderate (2+) H Urine Nitrite Negative Ur Leukocyte Esterase Negative Urine RBC 11-20 H Urine WBC 0-5 Ur Squamous Epith Cells 0-2 Urine Bacteria None Seen Hyaline Casts 0-[address] scan - abdomen: Radiologist's impression: ITS Impressions Abdomen/Pelvis CT 02/11/23 18:37 IMPRESSION: 1. Moderate right hydroureteronephrosis with a 0.6 cm calculus in the proximal right ureter. 2. Multiple additional bilateral renal calculi. 3. Diverticulosis but no evidence of acute diverticulitis. 4. Hepatomegaly and hepatic steatosis. Discharge Plan Discharge Anticipated Discharge Date/Time: 02/12/23 18:11 Patient Disposition: Home, Self-Care Discharge Diagnosis: right ureteric stone Referrals: Physician,None [Primary Care Provider] - 2 Weeks (procedure) Discharge Medications: New tamsulosin 0.4 mg capsule 0.4 mg PO BEDTIME 14 Days Qty: 14 0RF phenazopyridine [Pyridium] 100 mg tablet 100 mg PO TID PRN (Reason: Spasm) 4 Days Qty: 12 0RF naproxen 500 mg tablet 500 mg PO BID PRN (Reason: pain) 7 Days Qty: 14 0RF Discontinued acetaminophen 325 mg Tablet 650 mg PO Q6H PRN (Reason: Pain) Discharge Orders: Discharge Order (Routine); Ordered 02/12/23 Ordered By: Eric Petersen Diet: Advance to usual diet Activity on Discharge: As tolerated Stand Alone Forms: Patient Portal Discharge page Care Plan Goals: stone Health Concerns: stone Plan of Treatment: stone Assessment: stone
[2023-02-12] MEDS: Phenazopyridine HCL 100 MG TABLET PO (18:27)
--- NOTE | 2023-02-12 19:45 | PC.NURSE ---
1915: Patient back from procedure; cystoscopy, right stent placement. Patient alert and oriented, denies pain or discomfort at this time, vs stable. Patient asking to go home, discharge orders in. Verified with zita Farris to discharge patient home.
== END 2023-02-12 20:00 | disposition home or self-care (01) | DRG 661 ==
LOC: HO.ED 22:00 → HO.EDOVER 22:38 → HO.S3 02-12 11:09
PROVIDERS: Physician Assistant; Admitting Provider Urology; Emergency Provider Emergency Medicine; Visit Provider Urology
PROC: BT1DZZZ Fluoroscopy of Right Kidney, Ureter and Bladder (ICD-10-PCS; principal; 2023-02-12 16:30)
DX: N13.2 Hydronephrosis with renal and ureteral calculous obstruction (principal); F17.210 Nicotine dependence, cigarettes, uncomplicated; Z71.6 Tobacco abuse counseling
CPT/HCPCS: 36415; 74176; 80048; 80076; 81001; 81003; 83735; 85025; 99285; C1758; C1769; C2617; J1100; J1170; J1885; J1956; J2250; J2270; J2405; J3010; Q9967

== ENCOUNTER → 2023-02-11 22:24 | Outpatient (BNV) | payer SELFPAY | PROVIDERS: Admitting Provider Urology; Emergency Provider Emergency Medicine; Visit Provider Urology | DX: N13.9 Obstructive and reflux uropathy, unspecified (principal); N20.1 Calculus of ureter | CPT/HCPCS: 52332; 99223 ==

== ENCOUNTER 2023-02-26 08:03 | Day surgery (SDC) | payer OTHER, SELFPAY ==
--- NOTE | ~2023-02-26 | XR_ITS ---
EXAMINATION: XR ABDOMEN KUB CLINICAL INDICATION: Preop for kidney stone removal COMPARISON: 02/11/2023 CT abdomen and pelvis TECHNIQUE: 2 AP views of the abdomen. FINDINGS: Nonobstructive bowel gas pattern. Moderate amount of stool in the colon. Visualization of the bilateral kidneys is limited due to overlying bowel. Right ureteral stent with proximal end overlying right renal pelvis and distal portion overlying bladder. Small pelvic calcifications are likely vascular. 5 mm rounded density overlying the lower pole of the right kidney is characteristic of a calculus. This appears to be located lateral to the proximal aspect of the stent. XR/XR KUB IMPRESSION: Right ureteral stent with proximal end overlying right renal pelvis and distal portion overlying bladder. Small pelvic calcifications are likely vascular. 5 mm rounded density overlying the lower pole of the right kidney is characteristic of a calculus. This appears to be located lateral to the proximal aspect of the stent.
[2023-02-26 08:48] VITALS: BMI 25.8
[2023-02-26 08:52] VITALS: BP 117/66; PULSE 65; RESP 18; TEMP 36.4; O2SAT 98
[2023-02-26] MEDS: Lactated Ringers 1,000 ML 999 ML IV (09:04)
[2023-02-26] MEDS: levoFLOXacin 500 MG TABLET PO (09:04)
--- NOTE | 2023-02-26 09:05 | MHC.SHP ---
Pre-Procedural Eval Section A Date of Service: 02/26/23 The patient is an INPATIENT: No Changes since office visit: No Cold of Flu in the past 2 weeks, No New Medical Problems, No Changes in Medication and No Patient answered all questions The History & Physical has been completed within 30 days and I have reviewed it.: Yes Section B Chief Complaint: Calculus of kidney Details of Present Illness: Right ESWL with cysto and stent removal Allergies: Allergies Allergy/AdvReac Type Severity Reaction Status Date / Time No Known Allergies Allergy Verified 11/10/21 14:55 Plan I have reviewed the history and physical and performed a pertinent physical examination on my patient. No changes have occurred unless specified. Time Spent With Patient Time: Total time managing care of this patient today ____ minutes.
--- NOTE | 2023-02-26 09:20 | HO.ANESPROP2 ---
Documented by User: Olivia Gold NP 02/25/23 09:36 HPI - Anesthesia Eval Consult details Narrative: 32yo M for Right Lithotripsy ESW with stent removal s/p cysto,stent 02/12/23 with MAC PMFSH Active Problems Active Problems: All Active Problems (Updated 02/20/23 @ 00:09 by Tree Feng) Back pain (Acute) Past Medical History Medical History Nephrolithiasis No pertinent past medical history Smoker Family History Family history of problems with anesthesia: No Surgical History Surgical History No pertinent past surgical history History of Problems with Anesthesia: No Social History Social History Household Members: Family Housing: Apartment Do you presently have visiting nurse or other home services: No Alcohol intake: current Alcohol intake frequency: a few times a month Alcohol type: beer Patient Tobacco Use Status: Current everyday Tobacco user Tobacco use type: Cigarette Cigarettes Per Day: 10 Years Smoked: 13 e-Cigarette/Vaping Use: Currently Using Date Education Initiated: 02/26/23 Second Hand Smoke Exposure: No Use of substances other than those prescribed or required for medical reasons: Yes Substance Use Type: Marijuana Are you DNR?: No Advance Directives: No Advance Directives Information Provided: Yes Meds Allergies Allergy/AdvReac Type Severity Reaction Status Date / Time No Known Allergies Allergy Verified 11/10/21 14:55 Exam Exam Date and Time: February 25, 2023 0935 Pertinent Lab Results Pertinent Lab Results: Laboratory Tests 02/11/23 02/11/23 17:56 17:56 WBC 10.4 Hgb 16.8 Hct 47.8 Plt Count 254 D Sodium 142 Potassium 4.2 Chloride 105 Carbon Dioxide 19 L BUN 17 H Creatinine 1.10 Assessment and Plan Assessment Anesthesia Assessment: Chart Reviewed Final Anesthetic Review Family History of Problems with Anesthesia: No History of Problems with Anesthesia: No Documented by User: Alma Delia Mosher DO 02/26/23 09:53 [facility] Past Medical History Medical History Nephrolithiasis No pertinent past medical history Smoker Family History Family history of problems with anesthesia: No Surgical History Surgical History No pertinent past surgical history History of Problems with Anesthesia: No Social History Social History Household Members: Family Housing: Apartment Do you presently have visiting nurse or other home services: No Alcohol intake: current Alcohol intake frequency: a few times a month Alcohol type: beer Patient Tobacco Use Status: Current everyday Tobacco user Tobacco use type: Cigarette Cigarettes Per Day: 10 Years Smoked: 13 e-Cigarette/Vaping Use: Currently Using Date Education Initiated: 02/26/23 Second Hand Smoke Exposure: No Use of substances other than those prescribed or required for medical reasons: Yes Substance Use Type: Marijuana Are you DNR?: No Advance Directives: No Advance Directives Information Provided: Yes Meds Allergies Allergy/AdvReac Type Severity Reaction Status Date / Time No Known Allergies Allergy Verified 11/10/21 14:55 Exam Exam Date and Time: February 26, 2023 0920 Height,Weight and Vital Signs: Height 5 ft 7 in Weight 74.843 kg Vital Signs Temperature 97.5 F 02/26/23 08:52 Pulse Rate 65 02/26/23 08:52 Respiratory Rate 18 02/26/23 08:52 Blood Pressure 117/66 02/26/23 08:52 Pulse Oximetry 98 02/26/23 08:52 Oxygen Delivery Method Room Air 02/26/23 08:52 Temperature 97.5 F 02/26/23 08:52 Pulse Rate 65 02/26/23 08:52 Respiratory Rate 18 02/26/23 08:52 Blood Pressure 117/66 02/26/23 08:52 Pulse Oximetry 98 02/26/23 08:52 Oxygen Delivery Method Room Air 02/26/23 08:52 Airway Mallampati Class: I TM Dist: >3cm Neck ROM: Full Loose/Missing/Broken Teeth: No Heart: S1S2 Lungs: CTAB Assessment and Plan Assessment Anesthesia Assessment: Anesthesia Plan Discussed and Chart Reviewed Final Anesthetic Review Family History of Problems with Anesthesia: No History of Problems with Anesthesia: No NPO: Yes ASA Class: II Final Preanesthetic Review: No Changes in Pt Med Stat, Meds/Allgs Chart Reviewed, Consent Obtained/Reviewed and Anes Risks/Benef Reviewed Patient Risk: Low Procedure Risk: Low Anesthetic Plan Anesthetic Plan: MAC: and Agree w/ Assess. and Plan Disposition: Standard PACU
--- NOTE | 2023-02-26 09:56 | W.PM.OPN ---
Operative Note Operative Note Date of Service: 02/26/23 Narrative: PreOperative Diagnosis: right Renal stones Post Operative Diagnosis: right Renal stones Procedure: right ESWL and cystoscopy with right stent removal Surgeon: Dr Eric Petersen Anesthesia: mac/sedation Indications for procedure: The patient understands ESWL may be a staged procedure and subsequent intervention may be required based on imaging after ESWL. Quoted stone clearance rates for a solitary procedure are in the 70-80% range based primarily on stone location. They also understand there is a risk of bleeding to the kidney, infection, damage to adjacent organs, and stone migration following the procedure. - Imaging 6mm proximal right ureteric stone Procedure: After informed consent was verified the patient was brought to the operating room and placed in a supine position. Anesthesia was performed per protocol. Safety pause time-out was performed. Imaging was displayed in the room and laterality confirmed. ESWL was performed. The 1st 500 shocks were performed at 60 hertz. These were performed with increasing power. Once maximum power was reached the rate was increased to 180 hertz. A total of 2500 shocks were given. Targeted imaging with ultrasound/fluoroscopy showed stone smudging suggestive of disintegration. Cystoscopy with right stent removal at completion of ESWL The patient tolerated the procedure well and was transferred to the recovery area upon completion. Post procedure imaging will be organized. There was no evidence for flank discoloration.
[2023-02-26 10:20] VITALS: BP 114/69; PULSE 58; RESP 20; TEMP 36.6; O2SAT 100
[2023-02-26 10:35] VITALS: BP 114/75; PULSE 47; RESP 20; O2SAT 100
[2023-02-26 10:50] VITALS: BP 122/77; PULSE 52; RESP 16; TEMP 36.6; O2SAT 100
[2023-02-26 11:05] VITALS: BP 119/82; PULSE 50; RESP 16; TEMP 36.6; O2SAT 100
[2023-02-26 11:20] VITALS: BP 135/89; PULSE 52; RESP 16; O2SAT 100
== END 2023-02-26 12:20 | disposition home or self-care (01) ==
PROVIDERS: Visit Provider Urology
PROC: (CPT 50590; principal; 2023-02-26 10:00)
DX: N20.0 Calculus of kidney (principal); N13.30 Unspecified hydronephrosis; Z87.442 Personal history of urinary calculi; Z79.899 Other long term (current) drug therapy; F17.210 Nicotine dependence, cigarettes, uncomplicated
CPT/HCPCS: 50590; 52310; 74018; J0131; J1885; J2250; J3010

== ENCOUNTER → 2023-02-26 08:03 | Outpatient (BNV) | payer OTHER, SELFPAY | PROVIDERS: Visit Provider Urology | DX: N20.0 Calculus of kidney (principal); Z96.0 Presence of urogenital implants | CPT/HCPCS: 50590; 52310 ==

== ENCOUNTER 2023-03-12 20:53 | Emergency (ER) | payer OTHER, SELFPAY ==
[2023-03-12 20:56] VITALS: BP 128/90; PULSE 96; RESP 18; TEMP 36.7; O2SAT 99; BMI 26.0
--- NOTE | 2023-03-12 21:02 | ED.GENADULT ---
HPI - General Adult General Chief complaint: General Medical Stated complaint: Previous surgery groin area/Infected? Time Seen by Provider: 03/12/23 22:26 Source: patient Mode of arrival: ambulatory Limitations: no limitations History of Present Illness HPI narrative: Patient comes in with multiple small abscesses over the extremities and scrotal area for last few days ureteral stent placed 3 weeks ago has history of psoriasis and this kind of lesions off and on but never had so bad no fever no chills Related Data Previous Rx's Medication Instructions Recorded naproxen 500 mg tablet 500 mg PO BID PRN pain 7 days #14 02/12/23 tabs phenazopyridine 100 mg tablet 100 mg PO TID PRN Spasm 4 days #12 02/12/23 (Pyridium) tabs tamsulosin 0.4 mg capsule 0.4 mg PO BEDTIME 14 days #14 caps 02/12/23 naproxen 500 mg tablet 500 mg PO BID PRN pain 7 days #14 02/26/23 tabs tramadol 50 mg tablet 50 mg PO Q6H PRN pain (scale score 02/26/23 1-3) #8 tabs tamsulosin 0.4 mg capsule 0.4 mg PO BEDTIME 90 days #90 caps 03/05/23 cephalexin 500 mg capsule 500 mg PO QID 10 days #40 caps 03/12/23 doxycycline hyclate 100 mg tablet 100 mg PO BID #20 tabs 03/12/23 Allergies Allergy/AdvReac Type Severity Reaction Status Date / Time No Known Allergies Allergy Verified 03/12/23 21:03 Review of Systems Review of Systems: Yes all other systems are reviewed and are negative PMFSH Past Medical History Medical History Nephrolithiasis No pertinent past medical history Smoker Surgical History No pertinent past surgical history Social History Social History Household Members: Family Housing: Apartment Do you presently have visiting nurse or other home services: No Alcohol intake: current Alcohol intake frequency: a few times a month Alcohol type: beer Patient Tobacco Use Status: Current everyday Tobacco user Tobacco use type: Cigarette Cigarettes Per Day: 10 Years Smoked: 13 e-Cigarette/Vaping Use: Currently Using Second Hand Smoke Exposure: No Substance Use Type: Marijuana Advance Directives: No Advance Directives Information Provided: Yes Physical Exam ED Vital Signs: Vital Signs - 24 hr 03/12/23 20:56 Temperature 98.0 F Pulse Rate 96 Respiratory Rate 18 Blood Pressure 128/90 H Pulse Oximetry 99 Oxygen Delivery Method Room Air BMI result Body Mass Index 26.0 Appearance: Alert. Oriented X3. No acute distress. Neck: Normal inspection. Neck supple. CVS: Normal heart rate and rhythm. Pulses normal. Respiratory: No respiratory distress. Equal air entry bilateral, Abdomen: Soft and nontender. Bowel sounds are present, Skin: Skin warm and dry. Normal skin color. Normal skin turgor. Multiple small abscesses the scrotal area hands and legs >> MRSA infection, psoriatic rash on the scrotum and the umbilical area Neuro: Oriented X 3. Course Course Course Narrative: This is an RME: Additional HPI, ROS, PE not included below will be deferred to primary provider. This is a [id number]-male presenting to the emergency department with complaints to lesions to his scrotal sac, left finger and thighs. Patient was seen in the emergency department and was admitted for obstructive uropathy, had surgery with stent placement and stent removal. Patient reports that a single pimple on his scrotum is developed and now is spreading throughout all his genitalia, now endorsing some general weakness and malaise. Vital signs stable. Unable to visualize region given limited privacy and triage. Plan: Labs ordered Medical Decision Making Medical Decision Making [facility] Narrative: Patient clinically has MRSA infection pus sample from groin was taken and sent for culture will give patient doxycycline and Keflex Lab Data [facility] Lab Attestation statement: I reviewed the patient's lab results. 03/12/23 21:15 03/12/23 21:15 Labs: Lab Results 03/12/23 03/12/23 Range/Units 21:15 21:15 WBC 9.6 (4.8-10.8) X10*3/uL RBC 4.99 (4.60-5.80) X10*6/uL Hgb 15.4 (14.0-18.0) g/dl Hct 43.3 (42.0-52.0) % MCV 86.8 (80.0-98.0) fL MCH 30.9 (27.0-33.0) pg MCHC 35.6 (31.0-36.0) g/dl RDW 11.9 (11.0-16.0) % Plt Count 242 (160-400) X10*3/uL MPV 10.0 (9.4-12.4) fL Immature Gran % (Auto) 0.2 (0.0-0.4) % Neut % (Auto) 59.1 (45-73) % Lymph % (Auto) 27.0 (20-40) % [place] % (Auto) 9.0 (2-11) % Eos % (Auto) 4.1 H (0-4) % Baso % (Auto) 0.6 (0-2) % Lymph # (Auto) 2.6 (1.2-4.9) X10*3/uL [place] # (Auto) 0.9 (0.1-1.2) X10*3/uL Eos # (Auto) 0.4 (0.0-0.4) X10*3/uL Baso # (Auto) 0.1 (0.0-0.2) X10*3/uL Abs Immat Gran (auto) 0.02 (0.00-0.03) X10*3/uL Absolute Neuts (auto) 5.7 (2.0-8.3) x10*3/uL Absolute Nucleated RBC 0.000 (0.0-0.012) X10*3/uL Nucleated RBC % (auto) 0.0 (0.0-0.2) /100WBC Sodium 141 (135-145) mmol/L Potassium 3.6 (3.3-5.1) mmol/L Chloride 106 (96-108) mmol/L Carbon Dioxide 25 (22-29) mmol/L Anion Gap 14 (12-20) BUN 11 (9-16) mg/dL Creatinine 0.84 (0.5-1.4) mg/dL Estim Creat Clear Calc 118.0 Estimated GFR > 60 Random Glucose 88 (60-115) mg/dL Calcium 10.4 H (8.4-10.2) mg/dL Magnesium 2.0 (1.6-2.6) mg/dL Total Bilirubin 0.7 (0.0-1.0) mg/dL Direct Bilirubin 0.3 (0.0-0.5) mg/dL AST 18 (5-37) U/L ALT 13 (0-40) U/L Alkaline Phosphatase 73 (39-117) U/L Total Protein 8.0 (6.5-8.0) g/dL Albumin 4.8 (3.5-5.0) g/dL Lipase 17 (8-78) U/L Discharge Plan Discharge Clinical Impression: MRSA (methicillin resistant Staphylococcus aureus) infection Patient Disposition: Home, Self-Care Instructions: MRSA (Methicillin-Resistant Staphylococcus Aureus) (ED) Additional Instructions: Likely have MRSA infection cultures were taken Take antibiotics as prescribed Report to the ER/PCP if worsening of the rash/ high fever Contact precautions as advised Prescriptions: New cephalexin 500 mg capsule 500 mg PO QID 10 Days Qty: 40 0RF doxycycline hyclate 100 mg tablet 100 mg PO BID Qty: 20 0RF No Action tamsulosin 0.4 mg capsule 0.4 mg PO BEDTIME 90 Days Qty: 90 0RF tamsulosin 0.4 mg capsule 0.4 mg PO BEDTIME 14 Days Qty: 14 0RF phenazopyridine [Pyridium] 100 mg tablet 100 mg PO TID PRN (Reason: Spasm) 4 Days Qty: 12 0RF naproxen 500 mg tablet 500 mg PO BID PRN (Reason: pain) 7 Days Qty: 14 0RF tramadol 50 mg tablet 50 mg PO Q6H PRN (Reason: pain (scale score 1-3)) Qty: 8 0RF naproxen 500 mg tablet 500 mg PO BID PRN (Reason: pain) 7 Days Qty: 14 0RF
[2023-03-12 21:19] LABS: MANUAL DIFF FLAG NO
[2023-03-12 21:26] LABS: Basophils Absolute Auto 0.1 X10*3/uL (0.0-0.2); Basophils Percent Auto 0.6 % (0-2); Eosinophils Absolute Auto 0.4 X10*3/uL (0.0-0.4); Eosinophils Percent Auto 4.1 % (0-4); Hematocrit 43.3 % (42.0-52.0); Hemoglobin 15.4 g/dl (14.0-18.0); Imm Gran Abs Auto 0.02 X10*3/uL (0.00-0.03); Imm Gran Pct Auto 0.2 % (0.0-0.4); Lymphocytes Absolute Auto 2.6 X10*3/uL (1.2-4.9); Mean Corpuscular HGB Conc 35.6 g/dl (31.0-36.0); Mean Corpuscular Hemoglobin 30.9 pg (27.0-33.0); Mean Corpuscular Volume 86.8 fL (80.0-98.0); Monocytes Absolute Auto 0.9 X10*3/uL (0.1-1.2); Neutrophils Absolute Auto 5.7 x10*3/uL (2.0-8.3); Neutrophils Percent Auto 59.1 % (45-73); Platelet Count 242 X10*3/uL (160-400); Red Blood Count 4.99 X10*6/uL (4.60-5.80); Red Cell Distribution Width 11.9 % (11.0-16.0); White Blood Count 9.6 X10*3/uL (4.8-10.8)
[2023-03-12 21:46] LABS: Alanine Aminotransferase 13 U/L (0-40); Albumin Level 4.8 g/dL (3.5-5.0); Alkaline Phosphatase 73 U/L (39-117); Anion Gap 14 (12-20); Aspartate Amino Transferase 18 U/L (5-37); Bilirubin Direct 0.3 mg/dL (0.0-0.5); Bilirubin Total 0.7 mg/dL (0.0-1.0); Blood Urea Nitrogen 11 mg/dL (9-16); Calcium 10.4 mg/dL (8.4-10.2); Carbon Dioxide 25 mmol/L (22-29); Chloride 106 mmol/L (96-108); Estimated Glomerular Filt Rate > 60; Glucose Random 88 mg/dL (60-115); Lipase 17 U/L (8-78); Potassium 3.6 mmol/L (3.3-5.1); Sodium 141 mmol/L (135-145)
[2023-03-13] MEDS: cephALEXin 500 MG CAPSULE PO (00:01)
[2023-03-13] MEDS: Doxycycline Monohydrate 100 MG CAPSULE PO (00:01)
== END 2023-03-13 00:12 | disposition home or self-care (01) ==
PROVIDERS: Physician Assistant Medical; Emergency Provider Internal Medicine
DX: A49.02 Methicillin resistant Staphylococcus aureus infection, unspecified site (principal); N49.2 Inflammatory disorders of scrotum; L02.512 Cutaneous abscess of left hand; L02.416 Cutaneous abscess of left lower limb; L02.415 Cutaneous abscess of right lower limb; F17.210 Nicotine dependence, cigarettes, uncomplicated
CPT/HCPCS: 36415; 80048; 80076; 83690; 83735; 85025; 87070; 87077; 87186; 87205; 99283; 99284

== ENCOUNTER 2023-04-05 19:06 | Emergency (ER) | payer OTHER, SELFPAY ==
--- NOTE | 2023-04-05 19:12 | ED_ITS ---
HPI - General Adult General Stated complaint: Staff infection 4 days, blurry vision in left eye Related Data Previous Rx's Medication Instructions Recorded naproxen 500 mg tablet 500 mg PO BID PRN pain 7 days #14 02/12/23 tabs phenazopyridine 100 mg tablet 100 mg PO TID PRN Spasm 4 days #12 02/12/23 (Pyridium) tabs tamsulosin 0.4 mg capsule 0.4 mg PO BEDTIME 14 days #14 caps 02/12/23 naproxen 500 mg tablet 500 mg PO BID PRN pain 7 days #14 02/26/23 tabs tramadol 50 mg tablet 50 mg PO Q6H PRN pain (scale score 02/26/23 1-3) #8 tabs tamsulosin 0.4 mg capsule 0.4 mg PO BEDTIME 90 days #90 caps 03/05/23 cephalexin 500 mg capsule 500 mg PO QID 10 days #40 caps 03/12/23 doxycycline hyclate 100 mg tablet 100 mg PO BID #20 tabs 03/12/23 Allergies Allergy/AdvReac Type Severity Reaction Status Date / Time No Known Allergies Allergy Verified 04/05/23 19:14 [facility] Past Medical History Medical History Nephrolithiasis No pertinent past medical history Smoker Surgical History No pertinent past surgical history Social History Social History Household Members: Family Housing: Apartment Do you presently have visiting nurse or other home services: No Alcohol intake: current Alcohol intake frequency: a few times a month Alcohol type: beer Patient Tobacco Use Status: Current everyday Tobacco user Tobacco use type: Cigarette Cigarettes Per Day: 10 Years Smoked: 13 e-Cigarette/Vaping Use: Currently Using Second Hand Smoke Exposure: No Substance Use Type: Marijuana Course Course Course Narrative: This is an RME: Additional HPI, ROS, PE not included below will be deferred to primary provider. This is a 89-vxvm-[id number]-male, presenting to the emergency department with a complaint of ?MRSA infection. Pt was seen here on 03/12/23 for lesions on his scrotal sac, left finger and thighs. Cultures were taken from sites and was +MRSA. He was treated with doxycycline & Keflex. He felt as though his symptoms were improving while he was on the antibiotics. He reports blurred vision in his left eye starting today. He also reports pain in his left nostril and face, he has a lesion in his left nostril. Endorsing fevers, chills, nausea, vomiting. Plan: Labs, blood cx ordered Discharge Plan Discharge Prescriptions: No Action tamsulosin 0.4 mg capsule 0.4 mg PO BEDTIME 90 Days Qty: 90 0RF tamsulosin 0.4 mg capsule 0.4 mg PO BEDTIME 14 Days Qty: 14 0RF phenazopyridine [Pyridium] 100 mg tablet 100 mg PO TID PRN (Reason: Spasm) 4 Days Qty: 12 0RF naproxen 500 mg tablet 500 mg PO BID PRN (Reason: pain) 7 Days Qty: 14 0RF tramadol 50 mg tablet 50 mg PO Q6H PRN (Reason: pain (scale score 1-3)) Qty: 8 0RF naproxen 500 mg tablet 500 mg PO BID PRN (Reason: pain) 7 Days Qty: 14 0RF cephalexin 500 mg capsule 500 mg PO QID 10 Days Qty: 40 0RF doxycycline hyclate 100 mg tablet 100 mg PO BID Qty: 20 0RF
[2023-04-05 19:14] VITALS: BP 135/84; PULSE 95; RESP 18; TEMP 37.1; O2SAT 98; BMI 25.8
[2023-04-05 19:43] LABS: MANUAL DIFF FLAG NO
[2023-04-05 19:49] LABS: Basophils Absolute Auto 0.1 X10*3/uL (0.0-0.2); Basophils Percent Auto 0.4 % (0-2); Eosinophils Absolute Auto 0.3 X10*3/uL (0.0-0.4); Eosinophils Percent Auto 2.4 % (0-4); Hematocrit 43.4 % (42.0-52.0); Hemoglobin 15.2 g/dl (14.0-18.0); Imm Gran Abs Auto 0.04 X10*3/uL (0.00-0.03); Imm Gran Pct Auto 0.4 % (0.0-0.4); Lymphocytes Absolute Auto 1.9 X10*3/uL (1.2-4.9); Lymphocytes Percent Auto 16.2 % (20-40); Mean Corpuscular Volume 88.4 fL (80.0-98.0); Mean Platelet Volume 10.4 fL (9.4-12.4); Monocytes Percent Auto 8.3 % (2-11); Neutrophils Absolute Auto 8.3 x10*3/uL (2.0-8.3); Neutrophils Percent Auto 72.3 % (45-73); Platelet Count 237 X10*3/uL (160-400); Red Blood Count 4.91 X10*6/uL (4.60-5.80); Red Cell Distribution Width 12.1 % (11.0-16.0); White Blood Count 11.4 X10*3/uL (4.8-10.8)
[2023-04-05 19:57] LABS: Lactic Acid 0.8 mmol/L (0.5-2.0)
[2023-04-05 20:01] LABS: Alanine Aminotransferase 12 U/L (0-40); Albumin Level 4.6 g/dL (3.5-5.0); Alkaline Phosphatase 78 U/L (39-117); Anion Gap 17 (12-20); Aspartate Amino Transferase 17 U/L (5-37); Bilirubin Total 0.6 mg/dL (0.0-1.0); Blood Urea Nitrogen 11 mg/dL (9-16); Calcium 9.8 mg/dL (8.4-10.2); Carbon Dioxide 22 mmol/L (22-29); Chloride 106 mmol/L (96-108); Creatinine Clr Calc Pharmacy 113.9; Estimated Glomerular Filt Rate > 60; Glucose Random 87 mg/dL (60-115); Sodium 141 mmol/L (135-145); Total Protein 7.9 g/dL (6.5-8.0)
[2023-04-05 21:22] VITALS: BP 143/86; PULSE 68; RESP 18; TEMP 36.9; O2SAT 98
--- NOTE | 2023-04-05 21:23 | MHC.EDTECH ---
Patient changed into hospital attire,vitals and rounds completed. Second set of blood cultures obtained and sent to lab. Call kirk within reach
--- NOTE | 2023-04-05 21:47 | ED_ITS ---
HPI - General Adult General Chief complaint: General Medical Stated complaint: Staff infection 4 days, blurry vision in left eye Time Seen by Provider: 04/05/23 21:38 Source: patient Mode of arrival: ambulatory Limitations: no limitations History of Present Illness HPI narrative: patient comes to the emergency room complaining of abscesses/staph infection. patient states that all started with ureter stents. After they were removed, patient started developing small abscesses throughout his body. Patient came on March 12, given doxycycline and cephalexin for home. Patient states that initially he started improving, but once he ran out, all of his symptoms restarted. Patient states he has a small pimple like erythematous area in his right inner thigh, and nose. Patient states that earlier today he had blurred vision, patient denies any erythema or pain around the eye, eyelids, or painful eye movements. Denies fever Or chills. Related Data Previous Rx's Medication Instructions Recorded naproxen 500 mg tablet 500 mg PO BID PRN pain 7 days #14 02/12/23 tabs phenazopyridine 100 mg tablet 100 mg PO TID PRN Spasm 4 days #12 02/12/23 (Pyridium) tabs tamsulosin 0.4 mg capsule 0.4 mg PO BEDTIME 14 days #14 caps 02/12/23 naproxen 500 mg tablet 500 mg PO BID PRN pain 7 days #14 02/26/23 tabs tramadol 50 mg tablet 50 mg PO Q6H PRN pain (scale score 02/26/23 1-3) #8 tabs tamsulosin 0.4 mg capsule 0.4 mg PO BEDTIME 90 days #90 caps 03/05/23 cephalexin 500 mg capsule 500 mg PO QID 10 days #40 caps 03/12/23 doxycycline hyclate 100 mg tablet 100 mg PO BID #20 tabs 03/12/23 sulfamethoxazole 800 1 tab PO BID #20 tabs 04/05/23 mg-trimethoprim 160 mg tablet (Bactrim DS) Allergies Allergy/AdvReac Type Severity Reaction Status Date / Time No Known Allergies Allergy Verified 04/05/23 19:14 Review of Systems 2 Review of Systems: Constitutional : No Weight loss, No Fever, No Chills, No Night Sweats, No Fatigue, No Malaise ENT/Mouth : No Hearing loss, No Ear Pain, No Nasal Congestion, No Sinus Pain, No Hoarseness, No sore throat, No Rhinorrhea, No Swallowing Difficulty Eyes: No Eye Pain, No Swelling, No Redness, No Foreign Body, No Discharge, No Vision Changes Cardiovascular : No Chest Pain, No SOB, No Dyspnea on Exertion, No Orthopnea, No Edema, No Palpitations Respiratory : No Cough, No Sputum, No Wheezing, No Smoke Exposure, No Dyspnea Gastrointestinal : No Nausea, No Vomiting, No Diarrhea, No Constipation, No abdominal Pain, No Hematochezia, No Melena Genitourinary : no irregular bleeding, No Dysuria, No Urinary Frequency, No Hematuria, No Urinary Incontinence, No Urgency, No Flank Pain, No Urinary Flow Changes, No Hesitancy Musculoskeletal : No joint pain, No Myalgias, No Joint Swelling Skin : complaining of small pimple like/abscesses in the right thigh . Neuro : No Weakness, No Numbness, No Paresthesias, No Loss of Consciousness, No Dizziness, No Headache Psych : No Anxiety/Panic, No Depression, No SI/HI/AH/VH, No Social Issues, Heme/Lymph: No Bruising, No Bleeding,No Lymphadenopathy Endocrine : No Polyuria, No Polydipsia, No Temperature Intolerance PMFSH Past Medical History Medical History Smoker Nephrolithiasis No pertinent past medical history Surgical History No pertinent past surgical history Social History Social History Household Members: Family Housing: Apartment Do you presently have visiting nurse or other home services: No Alcohol intake: current Alcohol intake frequency: holidays/special occasions only Alcohol type: beer Patient Tobacco Use Status: Current everyday Tobacco user Tobacco use type: Cigarette Cigarettes Per Day: 10 Years Smoked: 13 Smoked in Last 30 Days: Yes e-Cigarette/Vaping Use: Currently Using Second Hand Smoke Exposure: No Use of substances other than those prescribed or required for medical reasons: Yes Substance Use Type: Marijuana Substance Use Frequency: Chronic Longstanding Advance Directives: No Advance Directives Information Provided: No Physical Exam ED Vital Signs: Vital Signs - 24 hr 04/05/23 19:14 04/05/23 21:22 Temperature 98.7 F 98.4 F Pulse Rate 95 68 Respiratory Rate 18 18 Blood Pressure 135/84 143/86 H Pulse Oximetry 98 98 Oxygen Delivery Method Room Air Room Air BMI result Body Mass Index 25.8 HENCO Other: Appearance: Alert. Oriented X3. No acute distress. Eyes: Pupils equal, round and reactive to light. normal sclera, normal eye movements, painless, no erythema around the eye, no preseptal cellulitis suspected ENT: Pharynx normal. Neck: Normal inspection. Neck supple. No lymph nodes noted. No crepitus CVS: Normal heart rate and rhythm. Pulses normal. Normal S1 and S2 Respiratory: No respiratory distress. Breath sounds normal. No Wheezing. No rales Abdomen: Soft and nontender. No rigidity. No distention. Skin: Skin warm and dry. Normal skin color. Normal skin turgor. patient has a small pimple like lesion in the right thigh, surrounding erythema, no fluctuation, not raised, abscess not suspected. Patient has several pimple like lesions throughout his thigh. no scrotal lesions as he did last time. Very slight erythema in the tip of the nose, no obvious abscesses in the inside of the nose Extremities: No lower extremity edema. No Lacerations. No Rash Neuro: Oriented X 3. No motor deficit. No sensory deficit. Moving all extremities. No slurred speech. CN 2 through 12 grossly intact Psych: calm, cooperative, normal affect Medical Decision Making Medical Decision Making [facility] Narrative: my interpretation of labs, white blood cell count 11.4, lactic acid 0.8, no fever, no chills, blood pressure stable, sepsis not suspected. - I reviewed patient's blood culture results. Patient does have MRSA, resistant to penicillin, sensitive to clindamycin, Bactrim and vancomycin. - patient was given the 1st dose of Bactrim in the emergency room. Patient will be given a course of 2 weeks. Discussed with the patient that if his symptoms do not improve or worsen in the next 48 hours, he needs to return to emergency room and likely be admitted. At this time, patient is stable to be sent home, hospitalization not indicated Differential Diagnosis Differential Diagnoses: The differential diagnosis associated with the presentation includes ( MRSA infection, abscess, cellulitis) Lab Data [facility] Lab Attestation statement: I reviewed the patient's lab results. 04/05/23 19:31 04/05/23 19:31 Labs: Lab Results 04/05/23 Range/Units 19:31 WBC 11.4 H (4.8-10.8) X10*3/uL RBC 4.91 (4.60-5.80) X10*6/uL Hgb 15.2 (14.0-18.0) g/dl Hct 43.4 (42.0-52.0) % MCV 88.4 (80.0-98.0) fL MCH 31.0 (27.0-33.0) pg MCHC 35.0 (31.0-36.0) g/dl RDW 12.1 (11.0-16.0) % Plt Count 237 (160-400) X10*3/uL MPV 10.4 (9.4-12.4) fL Immature Gran % (Auto) 0.4 (0.0-0.4) % Neut % (Auto) 72.3 (45-73) % Lymph % (Auto) 16.2 L (20-40) % [place] % (Auto) 8.3 (2-11) % Eos % (Auto) 2.4 (0-4) % Baso % (Auto) 0.4 (0-2) % Lymph # (Auto) 1.9 (1.2-4.9) X10*3/uL [place] # (Auto) 1.0 (0.1-1.2) X10*3/uL Eos # (Auto) 0.3 (0.0-0.4) X10*3/uL Baso # (Auto) 0.1 (0.0-0.2) X10*3/uL Abs Immat Gran (auto) 0.04 H (0.00-0.03) X10*3/uL Absolute Neuts (auto) 8.3 (2.0-8.3) x10*3/uL Absolute Nucleated RBC 0.000 (0.0-0.012) X10*3/uL Nucleated RBC % (auto) 0.0 (0.0-0.2) /100WBC Sodium 141 (135-145) mmol/L Potassium 4.0 (3.3-5.1) mmol/L Chloride 106 (96-108) mmol/L Carbon Dioxide 22 (22-29) mmol/L Anion Gap 17 (12-20) BUN 11 (9-16) mg/dL Creatinine 0.87 (0.5-1.4) mg/dL Estim Creat Clear Calc 113.9 Estimated GFR > 60 Random Glucose 87 (60-115) mg/dL Lactic Acid 0.8 (0.5-2.0) mmol/L Calcium 9.8 (8.4-10.2) mg/dL Total Bilirubin 0.6 (0.0-1.0) mg/dL AST 17 (5-37) U/L ALT 12 (0-40) U/L Alkaline Phosphatase 78 (39-117) U/L Total Protein 7.9 (6.5-8.0) g/dL Albumin 4.6 (3.5-5.0) g/dL Discharge Plan Discharge Clinical Impression: Cellulitis due to MRSA Patient Disposition: Home, Self-Care Instructions: Cellulitis (ED) Additional Instructions: Please follow-up with your primary care physician tomorrow. If you have any worsening or new symptoms, please return to the emergency room or call 911 Prescriptions: New sulfamethoxazole-trimethoprim [Bactrim DS] 800-160 mg tablet 1 tab PO BID Qty: 20 0RF No Action tamsulosin 0.4 mg capsule 0.4 mg PO BEDTIME 90 Days Qty: 90 0RF tamsulosin 0.4 mg capsule 0.4 mg PO BEDTIME 14 Days Qty: 14 0RF phenazopyridine [Pyridium] 100 mg tablet 100 mg PO TID PRN (Reason: Spasm) 4 Days Qty: 12 0RF naproxen 500 mg tablet 500 mg PO BID PRN (Reason: pain) 7 Days Qty: 14 0RF tramadol 50 mg tablet 50 mg PO Q6H PRN (Reason: pain (scale score 1-3)) Qty: 8 0RF naproxen 500 mg tablet 500 mg PO BID PRN (Reason: pain) 7 Days Qty: 14 0RF cephalexin 500 mg capsule 500 mg PO QID 10 Days Qty: 40 0RF doxycycline hyclate 100 mg tablet 100 mg PO BID Qty: 20 0RF
== END 2023-04-05 22:29 | disposition home or self-care (01) ==
PROVIDERS: Physician Assistant Medical; Emergency Provider Emergency Medicine
DX: L03.115 Cellulitis of right lower limb (principal); B95.62 Methicillin resistant Staphylococcus aureus infection as the cause of diseases classified elsewhere; L02.415 Cutaneous abscess of right lower limb; J34.0 Abscess, furuncle and carbuncle of nose; F17.210 Nicotine dependence, cigarettes, uncomplicated; Z79.899 Other long term (current) drug therapy
CPT/HCPCS: 36415; 80053; 83605; 85025; 87040; 99283; 99284

== ENCOUNTER 2023-05-06 19:24 | Emergency (ER) | payer OTHER, SELFPAY ==
[2023-05-06 20:11] VITALS: BP 129/82; PULSE 77; RESP 20; TEMP 37.2; O2SAT 98; BMI 25.8
--- NOTE | 2023-05-06 20:13 | ED.GENADULT ---
HPI - General Adult General Chief complaint: Skin/Abscess/Foreign Body Stated complaint: staph infection ? lump on neck Time Seen by Provider: 05/06/23 21:55 Source: patient Mode of arrival: ambulatory Limitations: no limitations History of Present Illness HPI narrative: Patient with history of MRSA infection last traction was a month ago comes in for 10 days of rash all over the body lower extremities and buttocks area and scrotal without any significant redness or swelling or pus discharge no fever no chills Related Data Previous Rx's Medication Instructions Recorded naproxen 500 mg tablet 500 mg PO BID PRN pain 7 days #14 02/12/23 tabs phenazopyridine 100 mg tablet 100 mg PO TID PRN Spasm 4 days #12 02/12/23 (Pyridium) tabs tamsulosin 0.4 mg capsule 0.4 mg PO BEDTIME 14 days #14 caps 02/12/23 naproxen 500 mg tablet 500 mg PO BID PRN pain 7 days #14 02/26/23 tabs tramadol 50 mg tablet 50 mg PO Q6H PRN pain (scale score 02/26/23 1-3) #8 tabs tamsulosin 0.4 mg capsule 0.4 mg PO BEDTIME 90 days #90 caps 03/05/23 cephalexin 500 mg capsule 500 mg PO QID 10 days #40 caps 03/12/23 doxycycline hyclate 100 mg tablet 100 mg PO BID #20 tabs 03/12/23 sulfamethoxazole 800 1 tab PO BID #20 tabs 04/05/23 mg-trimethoprim 160 mg tablet (Bactrim DS) mupirocin 2 % topical ointment 1 appl topical BID #22 grams 05/06/23 sulfamethoxazole 800 1 tab PO BID #90 tabs 05/06/23 mg-trimethoprim 160 mg tablet (Bactrim DS) Allergies Allergy/AdvReac Type Severity Reaction Status Date / Time No Known Allergies Allergy Verified 04/05/23 19:14 Review of Systems Review of Systems: Yes all other systems are reviewed and are negative PMFSH Past Medical History Medical History Smoker Nephrolithiasis No pertinent past medical history Surgical History No pertinent past surgical history Social History Social History Household Members: Family Housing: Apartment Do you presently have visiting nurse or other home services: No Alcohol intake: current Alcohol intake frequency: holidays/special occasions only Alcohol type: beer Patient Tobacco Use Status: Current everyday Tobacco user Tobacco use type: Cigarette Cigarettes Per Day: 10 Years Smoked: 13 e-Cigarette/Vaping Use: Currently Using Second Hand Smoke Exposure: No Substance Use Type: Marijuana Advance Directives: No Advance Directives Information Provided: No Physical Exam ED Vital Signs: Vital Signs - 24 hr 05/06/23 20:11 Temperature 99.0 F Pulse Rate 77 Respiratory Rate 20 Blood Pressure 129/82 Pulse Oximetry 98 Oxygen Delivery Method Room Air BMI result Body Mass Index 25.8 Appearance: Alert. Oriented X3. No acute distress. CVS: Normal heart rate and rhythm. Pulses normal. Respiratory: No respiratory distress. Equal air entry bilateral, Abdomen: Soft and nontender. Skin: Skin warm and dry. Multiple small areas of folliculitis >>MRSA no significant abscess Extremities: No lower extremity edema. No calf tenderness Neuro: Oriented X 3. Course Course Course Narrative: this is a rapid medical exam. Defer additional HPI, ROS, PE to prior provider. 33-year-old male with a history of recurrent staph infection, previous MRSA presents to the Er with painful rash to legs, buttocks and testicles. Unable to visualize in triage. Will obtain labs VSS Medications Administered Discontinued Medications Generic Name Dose Route Start Last Admin Trade Name Freq PRN Reason Stop Dose Admin Trimethoprim/Sulfamethoxazole 1 tab 05/06/23 22:42 05/06/23 22:48 Sulfamethox/Trimeth 800/160 Tablet PO 05/06/23 22:43 1 tab ONCE ONE Administration Medical Decision Making Medical Decision Making MDM Narrative: Patient with MRSA infection will discharge patient on Bactrim twice daily for 2 weeks and then every day for another 2 weeks and then 1 tablet every other day for chronic suppression Differential Diagnosis Differential Diagnoses: The differential diagnosis associated with the presentation includes MRSA infection/abscess/cellulitis Lab Data [facility] Lab Attestation statement: I reviewed the patient's lab results. 05/06/23 20:41 05/06/23 20:41 Labs: Lab Results 05/06/23 Range/Units 20:41 WBC 9.1 (4.8-10.8) X10*3/uL RBC 4.80 (4.60-5.80) X10*6/uL Hgb 14.5 (14.0-18.0) g/dl Hct 42.6 (42.0-52.0) % MCV 88.8 (80.0-98.0) fL MCH 30.2 (27.0-33.0) pg MCHC 34.0 (31.0-36.0) g/dl RDW 12.4 (11.0-16.0) % Plt Count 227 (160-400) X10*3/uL MPV 10.1 (9.4-12.4) fL Immature Gran % (Auto) 0.2 (0.0-0.4) % Neut % (Auto) 62.9 (45-73) % Lymph % (Auto) 23.5 (20-40) % [place] % (Auto) 8.6 (2-11) % Eos % (Auto) 4.2 H (0-4) % Baso % (Auto) 0.6 (0-2) % Lymph # (Auto) 2.1 (1.2-4.9) X10*3/uL [place] # (Auto) 0.8 (0.1-1.2) X10*3/uL Eos # (Auto) 0.4 (0.0-0.4) X10*3/uL Baso # (Auto) 0.1 (0.0-0.2) X10*3/uL Abs Immat Gran (auto) 0.02 (0.00-0.03) X10*3/uL Absolute Neuts (auto) 5.7 (2.0-8.3) x10*3/uL Absolute Nucleated RBC 0.000 (0.0-0.012) X10*3/uL Nucleated RBC % (auto) 0.0 (0.0-0.2) /100WBC Sodium 143 (135-145) mmol/L Potassium 4.0 (3.3-5.1) mmol/L Chloride 109 H (96-108) mmol/L Carbon Dioxide 24 (22-29) mmol/L Anion Gap 14 (12-20) BUN 13 (9-16) mg/dL Creatinine 0.88 (0.5-1.4) mg/dL Estim Creat Clear Calc 111.6 Estimated GFR > 60 Random Glucose 81 (60-115) mg/dL Calcium 9.6 (8.4-10.2) mg/dL Total Bilirubin 0.3 (0.0-1.0) mg/dL Direct Bilirubin 0.1 (0.0-0.5) mg/dL AST 19 (5-37) U/L ALT 18 (0-40) U/L Alkaline Phosphatase 63 (39-117) U/L Total Protein 7.3 (6.5-8.0) g/dL Albumin 4.3 (3.5-5.0) g/dL Discharge Plan Discharge Clinical Impression: MRSA (methicillin resistant Staphylococcus aureus) infection Patient Disposition: Home, Self-Care Instructions: MRSA (Methicillin-Resistant Staphylococcus Aureus) (ED) Additional Instructions: Care and cautions as advised Take Bactrim 1 tablet twice daily for 2 weeks then 1 tablet every other day for prophylaxis Bactroban ointment for local application twice daily as needed Prescriptions: New sulfamethoxazole-trimethoprim [Bactrim DS] 800-160 mg tablet 1 tab PO BID Qty: 90 0RF Rx Instructions: Take 1 tablet twice daily for 14 days then 1 tablets daily for another 14 days and then 1 tablet every other day mupirocin 2 % ointment 1 appl topical BID Qty: 22 0RF No Action tamsulosin 0.4 mg capsule 0.4 mg PO BEDTIME 90 Days Qty: 90 0RF tamsulosin 0.4 mg capsule 0.4 mg PO BEDTIME 14 Days Qty: 14 0RF phenazopyridine [Pyridium] 100 mg tablet 100 mg PO TID PRN (Reason: Spasm) 4 Days Qty: 12 0RF naproxen 500 mg tablet 500 mg PO BID PRN (Reason: pain) 7 Days Qty: 14 0RF tramadol 50 mg tablet 50 mg PO Q6H PRN (Reason: pain (scale score 1-3)) Qty: 8 0RF naproxen 500 mg tablet 500 mg PO BID PRN (Reason: pain) 7 Days Qty: 14 0RF cephalexin 500 mg capsule 500 mg PO QID 10 Days Qty: 40 0RF doxycycline hyclate 100 mg tablet 100 mg PO BID Qty: 20 0RF sulfamethoxazole-trimethoprim [Bactrim DS] 800-160 mg tablet 1 tab PO BID Qty: 20 0RF Stand Alone Forms: Work/School Release Interventions: ED Discharge Assessment Last Done: 05/06/23 22:52 Discharge Date/Time: 05/06/23 22:53
[2023-05-06 20:45] LABS: MANUAL DIFF FLAG NO
[2023-05-06 20:46] LABS: Basophils Absolute Auto 0.1 X10*3/uL (0.0-0.2); Basophils Percent Auto 0.6 % (0-2); Eosinophils Absolute Auto 0.4 X10*3/uL (0.0-0.4); Eosinophils Percent Auto 4.2 % (0-4); Hematocrit 42.6 % (42.0-52.0); Hemoglobin 14.5 g/dl (14.0-18.0); Imm Gran Abs Auto 0.02 X10*3/uL (0.00-0.03); Imm Gran Pct Auto 0.2 % (0.0-0.4); Lymphocytes Absolute Auto 2.1 X10*3/uL (1.2-4.9); Lymphocytes Percent Auto 23.5 % (20-40); Mean Corpuscular Hemoglobin 30.2 pg (27.0-33.0); Mean Corpuscular Volume 88.8 fL (80.0-98.0); Mean Platelet Volume 10.1 fL (9.4-12.4); Monocytes Absolute Auto 0.8 X10*3/uL (0.1-1.2); Monocytes Percent Auto 8.6 % (2-11); Neutrophils Absolute Auto 5.7 x10*3/uL (2.0-8.3); Neutrophils Percent Auto 62.9 % (45-73); Platelet Count 227 X10*3/uL (160-400); Red Cell Distribution Width 12.4 % (11.0-16.0); White Blood Count 9.1 X10*3/uL (4.8-10.8)
[2023-05-06 20:59] LABS: Alanine Aminotransferase 18 U/L (0-40); Albumin Level 4.3 g/dL (3.5-5.0); Alkaline Phosphatase 63 U/L (39-117); Anion Gap 14 (12-20); Aspartate Amino Transferase 19 U/L (5-37); Bilirubin Direct 0.1 mg/dL (0.0-0.5); Bilirubin Total 0.3 mg/dL (0.0-1.0); Blood Urea Nitrogen 13 mg/dL (9-16); Calcium 9.6 mg/dL (8.4-10.2); Carbon Dioxide 24 mmol/L (22-29); Chloride 109 mmol/L (96-108); Creatinine Clr Calc Pharmacy 111.6; Estimated Glomerular Filt Rate > 60; Glucose Random 81 mg/dL (60-115); Sodium 143 mmol/L (135-145); Total Protein 7.3 g/dL (6.5-8.0)
[2023-05-06] MEDS: Sulfamethox/Trimeth 800/160 TABLET 1 TAB PO (22:48)
== END 2023-05-06 22:53 | disposition home or self-care (01) ==
PROVIDERS: Nurse Practitioner Family; Emergency Provider Internal Medicine
DX: A49.02 Methicillin resistant Staphylococcus aureus infection, unspecified site (principal); F17.210 Nicotine dependence, cigarettes, uncomplicated; F12.90 Cannabis use, unspecified, uncomplicated; Z86.14 Personal history of Methicillin resistant Staphylococcus aureus infection; Z79.899 Other long term (current) drug therapy
CPT/HCPCS: 36415; 80048; 80076; 85025; 99282; 99283

== ENCOUNTER 2023-06-10 13:28 | Emergency (ER) | payer OTHER, SELFPAY | END 2023-06-10 14:23 | disposition left against medical advice (07) | LOC: HO.ED 14:20 | PROVIDERS: Emergency Provider Emergency Medicine | DX: R10.9 Unspecified abdominal pain (principal) ==

== ENCOUNTER 2023-08-18 09:36 | Emergency (ER) | payer OTHER, SELFPAY ==
[2023-08-18 09:45] VITALS: BP 140/89; PULSE 94; RESP 18; TEMP 37.1; O2SAT 96; BMI 25.1
--- NOTE | 2023-08-18 10:09 | ED.SKABFB ---
HPI - Skin/Abscess/Foreign Bdy General Chief complaint: Skin/Abscess/Foreign Body Stated complaint: Staph infection Time Seen by Provider: 08/18/23 10:09 Source: patient, RN notes reviewed and old records reviewed Mode of arrival: ambulatory History of Present Illness HPI narrative: 33-year-old male with a past medical history of nephrolithiasis, MRSA, presenting to the ED complaining of suspected staph infection with rash noted to bilateral upper extremities, lower extremities, and back x few days. Reports drainage from RUE wounds. Also reports subjective fever and chills. Admits to picking at area yesterday. Denies recent travel, no exposures, SOB Related Data Previous Rx's Medication Instructions Recorded naproxen 500 mg tablet 500 mg PO BID PRN pain 7 days #14 02/12/23 tabs phenazopyridine 100 mg tablet 100 mg PO TID PRN Spasm 4 days #12 02/12/23 (Pyridium) tabs tamsulosin 0.4 mg capsule 0.4 mg PO BEDTIME 14 days #14 caps 02/12/23 naproxen 500 mg tablet 500 mg PO BID PRN pain 7 days #14 02/26/23 tabs tramadol 50 mg tablet 50 mg PO Q6H PRN pain (scale score 02/26/23 1-3) #8 tabs tamsulosin 0.4 mg capsule 0.4 mg PO BEDTIME 90 days #90 caps 03/05/23 cephalexin 500 mg capsule 500 mg PO QID 10 days #40 caps 03/12/23 doxycycline hyclate 100 mg tablet 100 mg PO BID #20 tabs 03/12/23 sulfamethoxazole 800 1 tab PO BID #20 tabs 04/05/23 mg-trimethoprim 160 mg tablet (Bactrim DS) mupirocin 2 % topical ointment 1 appl topical BID #22 grams 05/06/23 sulfamethoxazole 800 1 tab PO BID #90 tabs 05/06/23 mg-trimethoprim 160 mg tablet (Bactrim DS) cephalexin 500 mg capsule 500 mg PO QID 7 days #28 caps 08/18/23 doxycycline hyclate 100 mg tablet 100 mg PO BID 7 days #14 tabs 08/18/23 mupirocin 2 % topical ointment 1 appl topical BID 7 days #22 grams 08/18/23 Allergies Allergy/AdvReac Type Severity Reaction Status Date / Time No Known Allergies Allergy Verified 08/18/23 09:47 Review of Systems Review of Systems: Constitutional: No Fever, No Chills ENT/Mouth: No Ear Pain, No Nasal Congestion, No sore throat, No Rhinorrhea, No Swallowing Difficulty Cardiovascular: No Chest Pain, No SOB Respiratory: No Cough Gastrointestinal: No Nausea, No Vomiting, No Abdominal pain Musculoskeletal: No joint pain, No Myalgias, No Joint Swelling Skin: + Skin Lesions, No rash Neuro: No Weakness, No Numbness, No Paresthesias Yes all other systems are reviewed and are negative Constitutional: Constitutional: Reports as per [facility] Past Medical History Attestation statement: The following information was validated with the patient. Source: old records reviewed Medical History Smoker Nephrolithiasis No pertinent past medical history Surgical History No pertinent past surgical history Social History Social History Household Members: Family Housing: Apartment Do you presently have visiting nurse or other home services: No Alcohol intake: current Alcohol intake frequency: holidays/special occasions only Alcohol type: beer Patient Tobacco Use Status: Current everyday Tobacco user Tobacco use type: Cigarette Cigarettes Per Day: 10 Years Smoked: 13 Smoked in Last 30 Days: No e-Cigarette/Vaping Use: Currently Using Second Hand Smoke Exposure: No Use of substances other than those prescribed or required for medical reasons: No Substance Use Type: Marijuana Advance Directives: No Physical Exam Vital Signs: Vital Signs: Last Vital Signs Temp 98.8 F 08/18/23 09:45 Pulse 94 08/18/23 09:45 Resp 18 08/18/23 09:45 BP 140/89 H 08/18/23 09:45 Pulse Ox 96 08/18/23 09:45 O2 Del Method Room Air 08/18/23 09:45 BMI result Body Mass Index 25.1 Const: General: cooperative, healthy appearing and no acute distress Orientation/consciousness: patient oriented x3 Limitations: no limitations HEENT: Head: Yes normal to inspection and Yes atraumatic Ears: hearing grossly normal bilaterally General nose exam: Normal external nose present Face and sinus: Yes normal facial exam Mouth: no drooling Throat: Yes posterior oropharynx normal and Yes uvula midline Eyes: General: appearance normal, both eyes and all related structures EOM: EOMs intact bilaterally Neck: Neck: Yes normal visual inspection and Yes no meningeal signs Resp: Effort & Inspection: normal respiratory effort and no respiratory distress Auscultation: clear to auscultation bilaterally Cardio: Rate: regular rate Heart sounds: S1 normal heart sound present and S2 normal heart sound present GI: Inspection: Yes normal to inspection Palpation (GI): Soft to palpation, nontender, no guarding and not rigid : General: Yes no CVA tenderness Back/Spine/Pelvis: Back: no CVA tenderness Skin: Other: Please refer to image above. 2 small erythematous indurated areas noted to right distal forearm with mild tenderness. No fluctuance/streaking or crepitus. Not circumferential. No active pus drainage Rashes: no rashes Wounds: no wounds Neuro: General: patient oriented x3, tone normal and no meningeal signs Cranial nerves: Yes CN's II-XII intact bilaterally Gait exam (Neuro): Normal gait present Extrem: General: Yes normal to inspection Medical Decision Making Medical Decision Making MDM Narrative: 33-year-old male with a past medical history of nephrolithiasis, MRSA, presenting to the ED complaining of suspected staph infection with rash noted to bilateral upper extremities, lower extremities, and back x few days. On exam vital signs stable, NAD, nontoxic appearing, physical exam as noted above, please refer to image, concern for cellulitis/abscess vs MRSA infection. No mucous membrane/palm or sole involvement. No evidence of SJS/TENS. No evidence of anaphylaxis or sloughing Plan: Topical mupirocin, p.o. Keflex/Doxy, PCP follow-up Please refer to course for remaining clinical decision making, interpretation of labs/imaging results, and discussions with consultants and/or family members. Differential Diagnosis Differential Diagnoses: The differential diagnosis associated with the presentation includes As above Admission/Observation Consideration of admission/observation: Escalation of care including admission/observation considered Lab Data [facility] Lab Attestation statement: I reviewed the patient's lab results. Radiology Impression Discussion of test interpretation with radiology: I have reviewed the radiologist's reading. External Record Review External record reviewed: Inpatient record, Office record, Outpatient record, Prior outpatient labs, Prior outpatient radiology, Primary care record and Outside ED record Tests considered The following testing was considered but not selected: As above Prescription Management I considered prescription management with: Pain Medication Chronic Conditions Patient?s care impacted by: Other (MRSA) Discharge Plan Discharge Clinical Impression: Cellulitis, Abscess of skin or subcutaneous tissue Patient Disposition: Home, Self-Care Instructions: Cellulitis (DC), Abscess (ED) Additional Instructions: Please use topical mupirocin as prescribed. Keflex and doxycycline antibiotics, take until completion Apply warm compresses to your right arm wounds If area begins to spread/worsen, pus drainage, or fever return to the ED Please follow-up with your doctor Prescriptions: New mupirocin 2 % ointment 1 appl topical BID 7 Days Qty: 22 0RF cephalexin 500 mg capsule 500 mg PO QID 7 Days Qty: 28 0RF doxycycline hyclate 100 mg tablet 100 mg PO BID 7 Days Qty: 14 0RF No Action tamsulosin 0.4 mg capsule 0.4 mg PO BEDTIME 90 Days Qty: 90 0RF tamsulosin 0.4 mg capsule 0.4 mg PO BEDTIME 14 Days Qty: 14 0RF phenazopyridine [Pyridium] 100 mg tablet 100 mg PO TID PRN (Reason: Spasm) 4 Days Qty: 12 0RF naproxen 500 mg tablet 500 mg PO BID PRN (Reason: pain) 7 Days Qty: 14 0RF tramadol 50 mg tablet 50 mg PO Q6H PRN (Reason: pain (scale score 1-3)) Qty: 8 0RF naproxen 500 mg tablet 500 mg PO BID PRN (Reason: pain) 7 Days Qty: 14 0RF cephalexin 500 mg capsule 500 mg PO QID 10 Days Qty: 40 0RF doxycycline hyclate 100 mg tablet 100 mg PO BID Qty: 20 0RF sulfamethoxazole-trimethoprim [Bactrim DS] 800-160 mg tablet 1 tab PO BID Qty: 90 0RF Rx Instructions: Take 1 tablet twice daily for 14 days then 1 tablets daily for another 14 days and then 1 tablet every other day mupirocin 2 % ointment 1 appl topical BID Qty: 22 0RF sulfamethoxazole-trimethoprim [Bactrim DS] 800-160 mg tablet 1 tab PO BID Qty: 20 0RF Referrals: [facility] [Outside] Physician,None [Primary Care Provider] - Stand Alone Forms: Work/School Release Interventions: ED Discharge Assessment Last Done: 08/18/23 10:48 Discharge Date/Time: 08/18/23 10:48
--- NOTE | 2023-08-18 10:37 | PC.NURSE ---
Pt is a&ox4 coming in with reports of having a staff infection, denies all other symptoms.
== END 2023-08-18 10:48 | disposition home or self-care (01) ==
PROVIDERS: Emergency Provider Emergency Medicine
DX: L03.113 Cellulitis of right upper limb (principal); L03.114 Cellulitis of left upper limb; Z79.899 Other long term (current) drug therapy
CPT/HCPCS: 99283

== ENCOUNTER 2023-10-15 15:59 | Emergency (ER) | payer OTHER, SELFPAY ==
[2023-10-15 16:19] VITALS: BP 143/92; PULSE 97; RESP 20; TEMP 37; O2SAT 98; BMI 24.7
--- NOTE | 2023-10-15 16:26 | ED.GENADULT ---
HPI - General Adult General Chief complaint: Skin/Abscess/Foreign Body Stated complaint: bacterial infection?? Related Data Previous Rx's ?Medication ?Instructions ?Recorded naproxen 500 mg tablet 500 mg PO BID PRN pain 7 days #14 02/12/23 tabs phenazopyridine 100 mg tablet 100 mg PO TID PRN Spasm 4 days #12 02/12/23 (Pyridium) tabs tamsulosin 0.4 mg capsule 0.4 mg PO BEDTIME 14 days #14 caps 02/12/23 naproxen 500 mg tablet 500 mg PO BID PRN pain 7 days #14 02/26/23 tabs tramadol 50 mg tablet 50 mg PO Q6H PRN pain (scale score 02/26/23 1-3) #8 tabs tamsulosin 0.4 mg capsule 0.4 mg PO BEDTIME 90 days #90 caps 03/05/23 cephalexin 500 mg capsule 500 mg PO QID 10 days #40 caps 03/12/23 doxycycline hyclate 100 mg tablet 100 mg PO BID #20 tabs 03/12/23 sulfamethoxazole 800 1 tab PO BID #20 tabs 04/05/23 mg-trimethoprim 160 mg tablet (Bactrim DS) mupirocin 2 % topical ointment 1 appl topical BID #22 grams 05/06/23 sulfamethoxazole 800 1 tab PO BID #90 tabs 05/06/23 mg-trimethoprim 160 mg tablet (Bactrim DS) cephalexin 500 mg capsule 500 mg PO QID 7 days #28 caps 08/18/23 doxycycline hyclate 100 mg tablet 100 mg PO BID 7 days #14 tabs 08/18/23 mupirocin 2 % topical ointment 1 appl topical BID 7 days #22 grams 08/18/23 Allergies Allergy/AdvReac Type Severity Reaction Status Date / Time No Known Allergies Allergy Verified 08/18/23 09:47 [facility] Past Medical History Medical History Smoker Nephrolithiasis No pertinent past medical history Surgical History No pertinent past surgical history Social History Social History Household Members: Family Housing: Apartment Do you presently have visiting nurse or other home services: No Alcohol intake: current Alcohol intake frequency: holidays/special occasions only Alcohol type: beer Patient Tobacco Use Status: Current everyday Tobacco user Tobacco use type: Cigarette Cigarettes Per Day: 10 Years Smoked: 13 e-Cigarette/Vaping Use: Currently Using Second Hand Smoke Exposure: No Substance Use Type: Marijuana Advance Directives: No Advance Directives Information Provided: No Physical Exam ED Vital Signs: Vital Signs - 24 hr 10/15/23 16:19 Temperature 98.6 F Pulse Rate 97 Respiratory Rate 20 Blood Pressure 143/92 H Pulse Oximetry 98 Oxygen Delivery Method Room Air BMI result Body Mass Index 24.7 Course Course Course Narrative: This is an RME: Additional HPI, ROS, PE not included below will be deferred to primary provider. This is a 33-year-old male presenting to the emergency department with complaints of scattered rash and boils on his genitalia region and lower legs. History of MRSA since last year after having stent placement surgery. Reports that he is having fevers, chills, and shortness of breath. Unable to visualize due to limited privacy in triage. Plan: Labs, further ER evaluation needed. Reevaluation(s) Reevaluation #1: Patient left prior to completing treatment. Medical Decision Making Lab Data 10/15/23 16:44 10/15/23 16:44 Labs: Lab Results 10/15/23 Range/Units 16:44 WBC 9.7 (4.8-10.8) X10*3/uL RBC 4.94 (4.60-5.80) X10*6/uL Hgb 15.0 (14.0-18.0) g/dl Hct 43.6 (42.0-52.0) % MCV 88.3 (80.0-98.0) fL MCH 30.4 (27.0-33.0) pg MCHC 34.4 (31.0-36.0) g/dl RDW 12.2 (11.0-16.0) % Plt Count 211 (160-400) X10*3/uL MPV 10.5 (9.4-12.4) fL Immature Gran % (Auto) 0.4 (0.0-0.4) % Neut % (Auto) 74.8 H (45-73) % Lymph % (Auto) 13.5 L (20-40) % Major % (Auto) 8.2 (2-11) % Eos % (Auto) 2.7 (0-4) % Baso % (Auto) 0.4 (0-2) % Lymph # (Auto) 1.3 (1.2-4.9) X10*3/uL Major # (Auto) 0.8 (0.1-1.2) X10*3/uL Eos # (Auto) 0.3 (0.0-0.4) X10*3/uL Baso # (Auto) 0.0 (0.0-0.2) X10*3/uL Abs Immat Gran (auto) 0.04 H (0.00-0.03) X10*3/uL Absolute Neuts (auto) 7.2 (2.0-8.3) x10*3/uL Absolute Nucleated RBC 0.000 (0.0-0.012) X10*3/uL Nucleated RBC % (auto) 0.0 (0.0-0.2) /100WBC Sodium 139 (135-145) mmol/L Potassium 3.7 (3.3-5.1) mmol/L Chloride 103 (96-108) mmol/L Carbon Dioxide 26 (22-29) mmol/L Anion Gap 14 (12-20) BUN 11 (9-16) mg/dL Creatinine 0.98 (0.5-1.4) mg/dL Estim Creat Clear Calc 100.2 Estimated GFR > 60 Random Glucose 92 (60-115) mg/dL Calcium 9.9 (8.4-10.2) mg/dL Magnesium 2.0 (1.6-2.6) mg/dL Total Bilirubin 0.4 (0.0-1.0) mg/dL AST 23 (5-37) U/L ALT 28 (0-40) U/L Alkaline Phosphatase 80 (39-117) U/L Total Protein 8.6 H (6.5-8.0) g/dL Albumin 4.6 (3.5-5.0) g/dL Lipase 14 (8-78) U/L Influenza Type A (PCR) NEGATIVE (Negative) Influenza Type B (PCR) NEGATIVE (Negative) RSV RNA Qual (PCR) NEGATIVE (Negative) SARS-CoV-2 RNA (RT-PCR) NEGATIVE (Negative) Discharge Plan Discharge Clinical Impression: Rash Patient Disposition: Left W/O Completing Treatment Prescriptions: No Action tamsulosin 0.4 mg capsule 0.4 mg PO BEDTIME 90 Days Qty: 90 0RF tamsulosin 0.4 mg capsule 0.4 mg PO BEDTIME 14 Days Qty: 14 0RF phenazopyridine [Pyridium] 100 mg tablet 100 mg PO TID PRN (Reason: Spasm) 4 Days Qty: 12 0RF naproxen 500 mg tablet 500 mg PO BID PRN (Reason: pain) 7 Days Qty: 14 0RF tramadol 50 mg tablet 50 mg PO Q6H PRN (Reason: pain (scale score 1-3)) Qty: 8 0RF naproxen 500 mg tablet 500 mg PO BID PRN (Reason: pain) 7 Days Qty: 14 0RF cephalexin 500 mg capsule 500 mg PO QID 10 Days Qty: 40 0RF doxycycline hyclate 100 mg tablet 100 mg PO BID Qty: 20 0RF sulfamethoxazole-trimethoprim [Bactrim DS] 800-160 mg tablet 1 tab PO BID Qty: 90 0RF Rx Instructions: Take 1 tablet twice daily for 14 days then 1 tablets daily for another 14 days and then 1 tablet every other day mupirocin 2 % ointment 1 appl topical BID Qty: 22 0RF sulfamethoxazole-trimethoprim [Bactrim DS] 800-160 mg tablet 1 tab PO BID Qty: 20 0RF mupirocin 2 % ointment 1 appl topical BID 7 Days Qty: 22 0RF cephalexin 500 mg capsule 500 mg PO QID 7 Days Qty: 28 0RF doxycycline hyclate 100 mg tablet 100 mg PO BID 7 Days Qty: 14 0RF Discharge Date/Time: 10/15/23 20:30
[2023-10-15 16:51] LABS: MANUAL DIFF FLAG NO
[2023-10-15 17:03] LABS: Basophils Percent Auto 0.4 % (0-2); Eosinophils Absolute Auto 0.3 X10*3/uL (0.0-0.4); Eosinophils Percent Auto 2.7 % (0-4); Hematocrit 43.6 % (42.0-52.0); Imm Gran Abs Auto 0.04 X10*3/uL (0.00-0.03); Imm Gran Pct Auto 0.4 % (0.0-0.4); Lymphocytes Absolute Auto 1.3 X10*3/uL (1.2-4.9); Lymphocytes Percent Auto 13.5 % (20-40); Mean Corpuscular HGB Conc 34.4 g/dl (31.0-36.0); Mean Corpuscular Hemoglobin 30.4 pg (27.0-33.0); Mean Corpuscular Volume 88.3 fL (80.0-98.0); Mean Platelet Volume 10.5 fL (9.4-12.4); Monocytes Absolute Auto 0.8 X10*3/uL (0.1-1.2); Monocytes Percent Auto 8.2 % (2-11); Neutrophils Absolute Auto 7.2 x10*3/uL (2.0-8.3); Neutrophils Percent Auto 74.8 % (45-73); Platelet Count 211 X10*3/uL (160-400); Red Blood Count 4.94 X10*6/uL (4.60-5.80); Red Cell Distribution Width 12.2 % (11.0-16.0); White Blood Count 9.7 X10*3/uL (4.8-10.8)
[2023-10-15 17:08] LABS: Alanine Aminotransferase 28 U/L (0-40); Albumin Level 4.6 g/dL (3.5-5.0); Alkaline Phosphatase 80 U/L (39-117); Anion Gap 14 (12-20); Aspartate Amino Transferase 23 U/L (5-37); Bilirubin Total 0.4 mg/dL (0.0-1.0); Blood Urea Nitrogen 11 mg/dL (9-16); Calcium 9.9 mg/dL (8.4-10.2); Carbon Dioxide 26 mmol/L (22-29); Chloride 103 mmol/L (96-108); Creatinine Clr Calc Pharmacy 100.2; Estimated Glomerular Filt Rate > 60; Glucose Random 92 mg/dL (60-115); Lipase 14 U/L (8-78); Potassium 3.7 mmol/L (3.3-5.1); Sodium 139 mmol/L (135-145); Total Protein 8.6 g/dL (6.5-8.0)
[2023-10-15 17:35] LABS: Influenza A PCR NEGATIVE (Negative); Influenza B PCR NEGATIVE (Negative); Resp Syncy Virus RNA Qual PCR NEGATIVE (Negative); SARS COV2 PCR INHOUSE NEGATIVE (Negative)
== END 2023-10-15 20:30 | disposition left against medical advice (07) ==
PROVIDERS: Physician Assistant Medical; Emergency Provider Emergency Medicine
DX: R21 Rash and other nonspecific skin eruption (principal); Z86.14 Personal history of Methicillin resistant Staphylococcus aureus infection
CPT/HCPCS: 0241U; 80053; 83690; 83735; 85025; 87040; 99281; 99283

== ENCOUNTER 2024-02-02 15:16 | Emergency (ER) | payer OTHER, SELFPAY ==
[2024-02-02 15:40] VITALS: BP 138/93; PULSE 98; RESP 18; TEMP 36.6; O2SAT 96; BMI 24.5
--- NOTE | 2024-02-02 15:42 | ED_ITS ---
HPI - General Adult General Chief complaint: Wound/Laceration Stated complaint: staph infection, dizzy Time Seen by Provider: 02/02/24 16:37 Source: patient Mode of arrival: ambulatory Limitations: no limitations History of Present Illness ED Provider: hodan NOLAND narrative: Patient is a 33-year-old male with history of abscesses which have tested positive for MRSA presenting with an abscess to left upper thigh for the past 4 days. Reports the area has been draining a small amount of purulent discharge. He started taking doxycycline twice daily 2 days ago which was prescribed to him by his network control operator. He has also been using Hibiclens as advised by the network control operator with little change. He denies fevers, chills, body aches. MD complaint: abscess Onset (ago): day(s) Location: left and lower extremity Severity: severe Quality: aching Pain Consistency: constant Exacerbating factors: movement Associated symptoms: denies other symptoms Treatments prior to arrival: other Related Data Previous Rx's ?Medication ?Instructions ?Recorded naproxen 500 mg tablet 500 mg PO BID PRN pain 7 days #14 02/12/23 tabs phenazopyridine 100 mg tablet 100 mg PO TID PRN Spasm 4 days #12 02/12/23 (Pyridium) tabs tamsulosin 0.4 mg capsule 0.4 mg PO BEDTIME 14 days #14 caps 02/12/23 naproxen 500 mg tablet 500 mg PO BID PRN pain 7 days #14 02/26/23 tabs tramadol 50 mg tablet 50 mg PO Q6H PRN pain (scale score 02/26/23 1-3) #8 tabs tamsulosin 0.4 mg capsule 0.4 mg PO BEDTIME 90 days #90 caps 03/05/23 cephalexin 500 mg capsule 500 mg PO QID 10 days #40 caps 03/12/23 doxycycline hyclate 100 mg tablet 100 mg PO BID #20 tabs 03/12/23 sulfamethoxazole 800 1 tab PO BID #20 tabs 04/05/23 mg-trimethoprim 160 mg tablet (Bactrim DS) mupirocin 2 % topical ointment 1 appl topical BID #22 grams 05/06/23 sulfamethoxazole 800 1 tab PO BID #90 tabs 05/06/23 mg-trimethoprim 160 mg tablet (Bactrim DS) cephalexin 500 mg capsule 500 mg PO QID 7 days #28 caps 08/18/23 doxycycline hyclate 100 mg tablet 100 mg PO BID 7 days #14 tabs 08/18/23 mupirocin 2 % topical ointment 1 appl topical BID 7 days #22 grams 08/18/23 cephalexin 500 mg capsule 500 mg PO QID #28 caps 02/02/24 ondansetron 4 mg disintegrating 4 mg PO Q8H PRN nausea and 02/02/24 tablet vomiting #10 tabs Allergies Allergy/AdvReac Type Severity Reaction Status Date / Time No Known Allergies Allergy Verified 02/02/24 15:43 Review of Systems 2 Review of Systems: As per HPI Yes all other systems are reviewed and are negative Constitutional: Constitutional: Reports as per HPI [facility] Past Medical History Medical History Smoker Nephrolithiasis No pertinent past medical history Surgical History No pertinent past surgical history Social History Social History Household Members: Family Housing: Apartment Do you presently have visiting nurse or other home services: No Alcohol intake: current Alcohol intake frequency: holidays/special occasions only Alcohol type: beer Patient Tobacco Use Status: Current everyday Tobacco user Tobacco use type: Cigarette Cigarettes Per Day: 10 Years Smoked: 13 e-Cigarette/Vaping Use: Currently Using Second Hand Smoke Exposure: No Substance Use Type: Marijuana Advance Directives: No Advance Directives Information Provided: No Do you have a plan to hurt others: No Plan Physical Exam ED Vital Signs: Vital Signs - 24 hr 02/02/24 15:40 02/02/24 16:00 Temperature 97.8 F 98.4 F Pulse Rate 98 69 Respiratory Rate 18 17 Blood Pressure 138/93 H 114/64 Pulse Oximetry 96 98 Oxygen Delivery Method Room Air Room Air BMI result Body Mass Index 24.5 Vital signs have been reviewed and appear to be correct. Blood pressure normal. Heart rate normal. Respiratory rate normal. Temperature normal. Oxygen saturation normal. Const General: cooperative, healthy appearing and no acute distress Orientation/consciousness: oriented to person, oriented to place, oriented to time and patient oriented x3 Limitations: no limitations HENMT Head: Yes normocephalic and Yes atraumatic Ears: external ears normal General nose exam: Normal external nose present Face and sinus: Yes face symmetric Mouth: oropharynx normal and moist mucous membranes Throat: Yes uvula midline Eyes Pupils: Equal, round and reactive pupils present Neck Neck: Yes normal visual inspection and Yes supple Resp Effort & Inspection: normal respiratory effort and able to speak in complete sentences Auscultation: clear to auscultation bilaterally Cardio Rate: regular rate Rhythm: regular rhythm Heart sounds: S1 normal heart sound present and S2 normal heart sound present GI Palpation (GI): Soft to palpation and nontender Auscultation: normoactive bowel sounds General: Yes no CVA tenderness Back/Spine/Pelvis Back: no CVA tenderness Skin General skin exam: elasticity normal and turgor normal Neuro General: oriented to person, oriented to place, oriented to time, patient oriented x3, moves all extremities, no focal motor deficits and CN's II-XI intact bilaterally Cranial nerves: Yes Equal, round and reactive pupils present Cognition (Neuro): normal cognition Extrem General: Yes full ROM, Yes no pedal edema and Yes no calf tenderness Upper/lower leg/hip images: 2 1. 3cm diameter firm abscess with central opening draining scant amount of purulent discharge and surrounding erythema Psych Mental Status: mental status grossly normal Affect: normal affect Thought process: Normal thought process present Course Course Course Narrative: This is an RME: Additional HPI, ROS, PE not included below will be deferred to primary provider. RME assessment and note performed by: Martha Wilson PA-C This is a 12-gpp[age]-tvp-male, with a hx of MRSA infections, who presents to the ER with a complaint of left gluteal swelling, redness x 3 days. Reports that the area is draining. Endorsing sweats, nausea. Unable to visualize in triage Plan: basic labs, further ER evaluation needed Medical Decision Making Medical Decision Making MDM Narrative: Patient is a 33-year-old male with history of abscesses which have tested positive for MRSA presenting with an abscess to left upper thigh for the past 4 days. On exam patient is awake, A+Ox3, VS WNL, afebrile, normal neurological exam without focal deficits, physical exam findings as above. Given reported symptoms and physical exam findings, initial differential includes abscess, cellulitis. Labs notable for no leukocytosis or left shift. Abscess is without fluctuance and is draining spontaneously, I&D not indicated at this time. Patient states that he has a full bottle of recently filled doxycycline at home. Advised him to continue taking this twice daily for a total of 7 days. Will add cephalexin as well. Will prescribe Zofran for nausea. Patient has mupirocin ointment at home which he has been applying advised him to continue washing with Hibiclens. Discussed with patient that he should not attempt to pop or express drainage from the abscess as this can worsen the infection. Patient reports he has been on several antibiotics for his abscesses in the past and that typically doxycycline usually works the best. Advised him to apply warm compresses several times daily. Tylenol and ibuprofen for discomfort. Will refer to Infectious Disease at patient request. Return precautions discussed at bedside. Patient verbalized understanding of and agreement with plan. Differential Diagnosis Differential Diagnoses: The differential diagnosis associated with the presentation includes As per MDM. Lab Data [facility] Lab Attestation statement: I reviewed the patient's lab results. As per MDM. 02/02/24 15:57 02/02/24 15:57 Labs: Lab Results 02/02/24 Range/Units 15:57 WBC 9.9 (4.8-10.8) X10*3/uL RBC 5.07 (4.60-5.80) X10*6/uL Hgb 15.7 (14.0-18.0) g/dl Hct 44.5 (42.0-52.0) % MCV 87.8 (80.0-98.0) fL MCH 31.0 (27.0-33.0) pg MCHC 35.3 (31.0-36.0) g/dl RDW 12.4 (11.0-16.0) % Plt Count 228 (160-400) X10*3/uL MPV 10.0 (9.4-12.4) fL Immature Gran % (Auto) 0.3 (0.0-0.4) % Neut % (Auto) 70.5 (45-73) % Lymph % (Auto) 19.1 L (20-40) % Mcintosh % (Auto) 6.7 (2-11) % Eos % (Auto) 2.8 (0-4) % Baso % (Auto) 0.6 (0-2) % Lymph # (Auto) 1.9 (1.2-4.9) X10*3/uL Mcintosh # (Auto) 0.7 (0.1-1.2) X10*3/uL Eos # (Auto) 0.3 (0.0-0.4) X10*3/uL Baso # (Auto) 0.1 (0.0-0.2) X10*3/uL Abs Immat Gran (auto) 0.03 (0.00-0.03) X10*3/uL Absolute Neuts (auto) 7.0 (2.0-8.3) x10*3/uL Absolute Nucleated RBC 0.000 (0.0-0.012) X10*3/uL Nucleated RBC % (auto) 0.0 (0.0-0.2) /100WBC Sodium 142 (135-145) mmol/L Potassium 3.6 (3.3-5.1) mmol/L Chloride 107 (96-108) mmol/L Carbon Dioxide 25 (22-29) mmol/L Anion Gap 14 (12-20) BUN 11 (9-16) mg/dL Creatinine 0.86 (0.5-1.4) mg/dL Estim Creat Clear Calc 114.2 Estimated GFR > 60 Random Glucose 105 (60-115) mg/dL Calcium 10.0 (8.4-10.2) mg/dL Total Bilirubin 0.6 (0.0-1.0) mg/dL Direct Bilirubin 0.2 (0.0-0.5) mg/dL AST 16 (5-37) U/L ALT 19 (0-40) U/L Alkaline Phosphatase 76 (39-117) U/L Total Protein 7.6 (6.5-8.0) g/dL Albumin 4.4 (3.5-5.0) g/dL External Record Review External record reviewed: Inpatient record, Office record and Outpatient record Prescription Management I considered prescription management with: Antibiotic and Other Chronic Conditions Patient?s care impacted by: Other (History of MRSA) Discharge Plan Discharge Clinical Impression: Abscess of left thigh Patient Disposition: Home, Self-Care Instructions: Cephalexin (By mouth), Doxycycline (By mouth), Abscess (ED), Abscess Follow-up (ED) Additional Instructions: You were evaluated in the ER for an abscess. Please keep the area surrounding the abscess clean and dry. You should continue to take the doxycycline 100mg twice daily for the next 7 days. You are being prescribed an additional antibiotic called cephalexin, take the full course as prescribed. You are being prescribed ondansetron for nausea, take this as prescribed. You should perform a skin check of the area daily. If the abscess progresses you may have to have the abscess incised and drained. You should apply warm compresses to the area several times daily but do not attempt to pop or squeeze the area to drain the pus. This can worsen the infection. You can use Tylenol or ibuprofen per package directions as needed for pain. If necessary, you can alternate these medications so that you take one medication every 3 hours. For instance, at noon take ibuprofen, then at 3:00 p.m. take Tylenol, then at 6:00 p.m. take ibuprofen. Please schedule an appointment with your primary care physician as soon as possible for follow-up. Return to the emergency department if you experience fevers greater than 100.4? F, increased in area of redness or swelling, increasing amount of discharge from the area, increased tenderness around the area, or any other concerning symptoms. Prescriptions: New ondansetron 4 mg tablet,disintegrating 4 mg PO Q8H PRN (Reason: nausea and vomiting) Qty: 10 0RF cephalexin 500 mg capsule 500 mg PO QID Qty: 28 0RF No Action tamsulosin 0.4 mg capsule 0.4 mg PO BEDTIME 90 Days Qty: 90 0RF tamsulosin 0.4 mg capsule 0.4 mg PO BEDTIME 14 Days Qty: 14 0RF phenazopyridine [Pyridium] 100 mg tablet 100 mg PO TID PRN (Reason: Spasm) 4 Days Qty: 12 0RF naproxen 500 mg tablet 500 mg PO BID PRN (Reason: pain) 7 Days Qty: 14 0RF tramadol 50 mg tablet 50 mg PO Q6H PRN (Reason: pain (scale score 1-3)) Qty: 8 0RF naproxen 500 mg tablet 500 mg PO BID PRN (Reason: pain) 7 Days Qty: 14 0RF cephalexin 500 mg capsule 500 mg PO QID 10 Days Qty: 40 0RF doxycycline hyclate 100 mg tablet 100 mg PO BID Qty: 20 0RF sulfamethoxazole-trimethoprim [Bactrim DS] 800-160 mg tablet 1 tab PO BID Qty: 90 0RF Rx Instructions: Take 1 tablet twice daily for 14 days then 1 tablets daily for another 14 days and then 1 tablet every other day mupirocin 2 % ointment 1 appl topical BID Qty: 22 0RF sulfamethoxazole-trimethoprim [Bactrim DS] 800-160 mg tablet 1 tab PO BID Qty: 20 0RF mupirocin 2 % ointment 1 appl topical BID 7 Days Qty: 22 0RF cephalexin 500 mg capsule 500 mg PO QID 7 Days Qty: 28 0RF doxycycline hyclate 100 mg tablet 100 mg PO BID 7 Days Qty: 14 0RF Referrals: MIYA ABARCA MD [Physician] - Stand Alone Forms: Work/School Release Print Language: Italian
[2024-02-02 16:00] VITALS: BP 114/64; PULSE 69; RESP 17; TEMP 36.9; O2SAT 98
[2024-02-02 16:01] LABS: MANUAL DIFF FLAG NO
[2024-02-02 16:03] LABS: Basophils Absolute Auto 0.1 X10*3/uL (0.0-0.2); Basophils Percent Auto 0.6 % (0-2); Eosinophils Absolute Auto 0.3 X10*3/uL (0.0-0.4); Eosinophils Percent Auto 2.8 % (0-4); Hematocrit 44.5 % (42.0-52.0); Hemoglobin 15.7 g/dl (14.0-18.0); Imm Gran Abs Auto 0.03 X10*3/uL (0.00-0.03); Imm Gran Pct Auto 0.3 % (0.0-0.4); Lymphocytes Absolute Auto 1.9 X10*3/uL (1.2-4.9); Lymphocytes Percent Auto 19.1 % (20-40); Mean Corpuscular HGB Conc 35.3 g/dl (31.0-36.0); Mean Corpuscular Volume 87.8 fL (80.0-98.0); Monocytes Absolute Auto 0.7 X10*3/uL (0.1-1.2); Monocytes Percent Auto 6.7 % (2-11); Neutrophils Percent Auto 70.5 % (45-73); Platelet Count 228 X10*3/uL (160-400); Red Blood Count 5.07 X10*6/uL (4.60-5.80); Red Cell Distribution Width 12.4 % (11.0-16.0); White Blood Count 9.9 X10*3/uL (4.8-10.8)
[2024-02-02 16:16] LABS: Alanine Aminotransferase 19 U/L (0-40); Albumin Level 4.4 g/dL (3.5-5.0); Alkaline Phosphatase 76 U/L (39-117); Anion Gap 14 (12-20); Aspartate Amino Transferase 16 U/L (5-37); Bilirubin Direct 0.2 mg/dL (0.0-0.5); Bilirubin Total 0.6 mg/dL (0.0-1.0); Blood Urea Nitrogen 11 mg/dL (9-16); Carbon Dioxide 25 mmol/L (22-29); Chloride 107 mmol/L (96-108); Creatinine Clr Calc Pharmacy 114.2; Estimated Glomerular Filt Rate > 60; Glucose Random 105 mg/dL (60-115); Potassium 3.6 mmol/L (3.3-5.1); Sodium 142 mmol/L (135-145); Total Protein 7.6 g/dL (6.5-8.0)
[2024-02-02 17:37] VITALS: BP 114/64; PULSE 69; RESP 17; TEMP 36.9; O2SAT 98
== END 2024-02-02 17:37 | disposition home or self-care (01) ==
PROVIDERS: Physician Assistant Medical; Emergency Provider Emergency Medicine
DX: L02.416 Cutaneous abscess of left lower limb (principal); F17.210 Nicotine dependence, cigarettes, uncomplicated; Z79.899 Other long term (current) drug therapy
CPT/HCPCS: 36415; 80048; 80076; 85025; 99283

== ENCOUNTER 2024-03-23 15:44 | Outpatient (AMB) | payer OTHER, SELFPAY ==
--- NOTE | 2024-03-23 15:47 | MHC.PC.OV ---
Vital Signs 03/23/24 15:49 Height 5 ft 8 in Weight 157 lb BMI 23.9 BP 110/80 Blood Pressure Location Rt brachial Position Sitting Pulse 77 Pulse Source Pulse Oximeter Pulse Oximetry (%) 98 Oxygen Delivery Method Room Air Intake Visit Reasons: [employer] WORK[employer] requesting PE Intake Note: Patient here to establish care Allergies No Known Allergies Allergy (Verified 03/23/24 15:50) Tobacco use date assessed: 03/23/24 Dental Screening Dental Screen Date: 03/23/24 Did you have a dental visit in the last 12 months?: Yes Did you have a dental problem in the last 6 months where you did not have access to dental care?: No Was dental information given to patient?: Patient has dentist HPI [employer] WORK[employer] requesting PE HPI Details New pt is here for a PE. Will order labs. Pt has onychomycosis to his fingernails and toenails. Will refer to podiatry. Pt reports multiple cystic lesions throughout his body. ? HS. Will refer to derm. Pt's scrotal tissue is very dry with cracking and some bleeding. Will send hydrocortisone cream (pt knows to use this sparingly). [facility] Medical History Smoker Nephrolithiasis No pertinent past medical history Surgical History No pertinent past surgical history Social History Household Members: Family Housing: Apartment Do you presently have visiting nurse or other home services: No Alcohol intake: current Alcohol intake frequency: holidays/special occasions only Alcohol type: beer Patient Tobacco Use Status: Current everyday Tobacco user Tobacco use type: Cigarette Cigarettes Per Day: 10 Years Smoked: 13 e-Cigarette/Vaping Use: Currently Using Second Hand Smoke Exposure: No Substance Use Type: Marijuana Current occupational status: employed Current occupation: [employer] Current occupational exposures/hazards: No Cognitive needs: No Hearing needs: No Vision needs: No Questionnaire PHQ-9 Over the last 2 weeks, how often have you been bothered by any of the following problems? 1. Little interest or pleasure in doing things: more than half the days 2. Feeling down, depressed, or hopeless: not at all 3. Trouble falling or staying asleep, or sleeping too much: nearly every day 4. Feeling tired or having little energy: more than half the days 5. Poor appetite or overeating: not at all 6. Feeling bad about yourself - or that you are a failure or have let yourself or your family down: not at all 7. Trouble concentrating on things, such as reading the newspaper or watching television: not at all 8. Moving or speaking so slowly that other people could have noticed. Or the opposite - being so fidgety or restless that you have been moving around a lot more than usual: not at all 9. Thoughts that you would be better off or of hurting yourself in some way: not at all Total score: 7 Depression Screening Interpretation: Negative Depression Screening Done: Yes 77011 - PHQ-9 Billing: Yes Source: Developed by Drs. Jose R Moreno, Kaelyn Montano, Angel Lainez and colleagues, with an educational gold from [employer]. Thrive Questionnaire Date Thrive assessed: 03/17/24 I am a: Patient What is your living situation today?: I have a steady place to live Within the past 12 months, did the food you bought not last and you didn't have the money to get more?: Sometimes True Within the past 12 months, did you worry whether your food would run out before you got money to buy more?: Often true Do you have trouble paying for medicines?: No Do you have trouble getting transportation to medical appointments?: Yes Do you have trouble paying your heating and electricity bill?: Yes Do you have trouble taking care of your child, family member or friend?: No Do you have trouble with day-to-day activities such as bathing, preparing meals, shopping, managing finances, etc.?: No Are you currently unemployed and looking for a job?: No Are you interested in more education?: No Please select the resources that you would like help with: Food, Transportation, Utilities and Care for elder or disabled Currently or been in a relationship where the following occur: No concerns reported THRIVE Score: 4 AUDIT C Alcohol Use Questionnaire (AUDIT-C) 1. How often do you have a drink containing alcohol?: Monthly or less 2. How many drinks containing alcohol do you have on a typical day when you are drinking?: 1 or 2 3. How often do you have six or more drinks on one occasion?: Less than monthly Total Score: 2 Score Reviewed/Action Taken: No JAQUAN-7 AMB Questionnaire JAQUAN-7 Date JAQUAN - 7 assessed: 03/23/24 Feeling nervous, anxious, or on edge: 2 = More than half the days Not being able to stop or control worryin = Several days Worrying too much about different things: 1 = Several days Trouble relaxin = Several days Being so restless that it is hard to sit still: 1 = Several days Becoming easily annoyed or irritable: 1 = Several days Feeling afraid as if something awful might happen: 0 = Not at all Total JAQUAN-7 score (0-4 normal; 5-9 mild; 10-14 moderate; 15-21 severe): 7 Source: Developed by Drs. Jose R Moreno, Kaelyn Montano, Angel Lainez and colleagues, with an educational gold from [employer]. JAQUAN-7 Assessment Billing JAQUAN-7 Assessment Tool: JAQUAN-7 Assessment 15439 Review of Systems Const Denies chills and Denies fever(s) Eyes Denies blurry vision ENT Denies vertigo, Denies dizziness and Denies sore throat Card Denies chest pain at rest, Denies chest pain with activity, Denies diaphoresis, Denies dyspnea and Denies dyspnea on exertion Resp Denies cough, Denies dyspnea, Denies dyspnea on exertion and Denies wheezing GI Denies abdominal pain, Denies melena, Denies hematochezia, Denies constipation, Denies diarrhea and Denies loose stools Denies hematuria Musc Denies numbness and Denies tingling Skin/Breast Denies lesions Neuro Denies vertigo, Denies dizziness, Denies numbness and Denies tingling Psych Denies anxiety, Denies depression, Denies homicidal ideation, Denies suicidal ideation and Denies other (substance abuse) Aller/Immun Denies wheezing Physical exam (Primary Care) Vital Signs: Last Vital Signs Pulse 77 03/23/24 15:49 BP 110/80 03/23/24 15:49 Pulse Ox 98 03/23/24 15:49 Oxygen Delivery Method Room Air 03/23/24 15:49 BMI result Body Mass Index 23.9 Tobacco/Smoking Status: Tobacco use Status Tobacco use date assessed 03/23/24 03/23/24 15:54 Patient Tobacco Use Status Current everyday Tobacco 03/23/24 15:48 Tobacco use type Cigarette 03/23/24 15:48 e-Cigarette/Vaping Use Currently Using 03/23/24 15:48 PHQ-9: PHQ-9 Score PHQ-9: Total score 7 03/23/24 15:54 Depression Screening Interpretation: Negative Thrive Assessment: Date of Thrive Assessment Date Thrive assessed 03/17/24 03/23/24 15:48 Currently or been in a relationship where the following occur: No concerns reported Const General: cooperative Nutritional Appearance: well nourished Orientation/consciousness: patient oriented x3 HENMT Head: Yes normal to inspection, Yes normocephalic and Yes atraumatic Ears: TM's normal bilaterally Eyes General: appearance normal, both eyes and all related structures Alignment and Position: alignment normal and position normal Neck Neck: Yes normal visual inspection, Yes no lymphadenopathy and Yes supple Resp Effort & Inspection: normal respiratory effort Auscultation: clear to auscultation bilaterally Cardio Rate: regular rate Rhythm: regular rhythm Heart sounds: S1 normal heart sound present, S2 normal heart sound present and no murmurs GI Palpation (GI): Soft to palpation and nontender Auscultation: normal bowel sounds Other: scrotal tissue very dry with linear cracking, some bleeding Male General Exam: Yes normal external exam Penis: normal penis Scrotum: testes descended bilaterally and no inguinal hernias Testes: no testicular mass Skin Other: no active cysts noted Rashes: no rashes Neuro General: patient oriented x3, moves all extremities, no focal motor deficits and deep tendon reflexes 2+ bilaterally Romberg Test: Negative Extrem Other: onychomycosis noted to toenails and fingernails Psych Appearance: grossly normal Mental Status: mental status grossly normal Speech and movement: Normal speech and movement present Affect: normal affect Attitude: cooperative Thought process: Normal thought process present Thought content: Normal thought content present Insight: Good insight present (Psych) Judgement: Good judgement present (Psych) Assessment and Plan Assessment & Plan (1) Onychomycosis: Code(s): B35.1 - Tinea unguium Plan: Referred to podiatry (2) Hidradenitis suppurativa: Code(s): L73.2 - Hidradenitis suppurativa Plan: Referred to derm (3) Dermatitis: Code(s): L30.9 - Dermatitis, unspecified Plan: Hydrocortisone sent Plan The patient agreed to the use of a medical psychotherapist for this encounter. Scribed for BRETT Clay by Naida Huston medical psychotherapist, on 03/23/2024 at 16:15 EST. Orders: Orders Comprehensive [place]. Panel Fast Today Z00. - Encounter for general adult medical examination with abnormal findings TSH reflex Free T4 Today Z00. - Encounter for general adult medical examination with abnormal findings Complete Blood Count Auto Diff Today Z00. - Encounter for general adult medical examination with abnormal findings UA CC w/rflx Micro + Cult Today Z00. - Encounter for general adult medical examination with abnormal findings Lipid Panel Today Z00.01 - Encounter for general adult medical examination with abnormal findings Referrals Podiatry Referral B35.1 - Tinea unguium Dermatology Referral L30.9 - Dermatitis, unspecified, L73.2 - Hidradenitis suppurativa Medications: New hydrocortisone 2.5% 1 appl topical BID PRN 30 grams 1RF skin irritation Refilled cephalexin 500 mg PO QID 10 days 40 caps 2RF Coding Level of Care Code New Pt Prev Care 18-39yr([id number] Diagnoses Onychomycosis B35.1 Hidradenitis suppurativa L73.2 Dermatitis L30.9 Additional Codes JAQUAN-7 Assessment Billing - JAQUAN-7 Assessment Tool: JAQUAN-7 Assessment [id number] ([id number])
[2024-03-23 15:49] VITALS: BP 110/80; PULSE 77; O2SAT 98; BMI 23.9
== END 2024-03-23 16:47 | disposition home or self-care (01) ==
PROVIDERS: Visit Provider Nurse Practitioner Family
DX: Z00.00 Encounter for general adult medical examination without abnormal findings (principal); B35.1 Tinea unguium; L73.2 Hidradenitis suppurativa; L30.9 Dermatitis, unspecified
CPT/HCPCS: 99385

== ENCOUNTER 2024-04-07 08:22 | Emergency (ER) | payer OTHER, SELFPAY ==
--- NOTE | ~2024-04-07 | CT_ITS ---
EXAMINATION: CT LUMBAR SPINE WITHOUT CONTRAST CLINICAL INFORMATION: Low back pain. Twisting injury. Left lower rib pain. COMPARISON: CT abdomen and pelvis from 02/11/2023. TECHNIQUE: Multidetector helical imaging of the lumbar spine was obtained without intravenous contrast. Multiple axial reformats and coronal/sagittal reconstructions were created the technologist workstation for review. This CT examination was performed using dose optimization techniques as appropriate, variously including the following: *Automated exposure control. *Adjustment of mA and/or kV according to patient size (this includes techniques or standardized protocols for targeted exams where dose is matched to indication/reason for exam; i.e. extremities or head). *Use of iterative reconstruction technique. DLP: 576 mGy-cm FINDINGS: Normal anatomic alignment. No evidence of acute fracture or traumatic subluxation. The vertebral body heights are maintained. The intervertebral disc spaces are maintained. No suspicious lytic or sclerotic osseous lesions. No significant abnormalities of the paraspinal musculature. Nonobstructive renal stones bilaterally measuring between punctate in size to 0.4 cm. Otherwise, limited evaluation of the intra-abdominal structures without significant abnormalities. The abdominal aorta is of normal contour and caliber. AXIAL SPINAL LEVELS: L1-L2: Normal annular contour. There is mild left and no right facet joint arthropathy. There is no neural foraminal stenosis. There is no demonstrated spinal canal stenosis. L2-L3: Mild diffuse disc bulge. There is moderate bilateral facet joint arthropathy. There is mild bilateral neural foraminal stenosis. There is no demonstrated spinal canal stenosis. L3-L4: Mild diffuse disc bulge. There is moderate right and mild left facet joint arthropathy. There is mild left and no right neural foraminal stenosis. There is no demonstrated spinal canal stenosis. L4-L5: Moderate diffuse disc bulge. There is moderate right and mild left facet joint arthropathy. There is mild to moderate right and mild left neural foraminal stenosis. There is no demonstrated spinal canal stenosis. L5-S1: Mild diffuse disc bulge. There is moderate right and mild left facet joint arthropathy. There is no neural foraminal stenosis. There is no demonstrated spinal canal stenosis. CT/CT lumbar spine wo IV con IMPRESSION: 1. No evidence of acute fracture or traumatic subluxation of the lumbar spine. 2. Mild to moderate multilevel degenerative spondyloarthropathy of the lumbar spine as described in detail above. Most notably on this limited exam without intrathecal contrast, there appears to be mild to moderate neural foraminal stenoses from L2-L5. No demonstrated spinal canal stenosis. 3. Bilateral nonobstructive nephrolithiasis. Electronically signed by: Edison Torres DO 04/07/2024 02:38 PM EDT
--- NOTE | ~2024-04-07 | CT_ITS ---
EXAMINATION: CT CHEST WITHOUT CONTRAST CLINICAL INFORMATION: Left lower rib pain and injury COMPARISON: None available. TECHNIQUE: Multidetector volumetric CT imaging of the chest was done. Axial MIP volume rendering provided. Sagittal and coronal reformatted images were obtained. This CT examination was performed using dose optimization techniques as appropriate, variously including the following: *Automated exposure control *Adjustment of mA and/or kV according to patient size (this includes techniques or standardized protocols for targeted exams where dose is matched to indication/reason for exam; i.e. extremities or head) *Use of iterative reconstruction technique DLP: 268 mGy-cm FINDINGS: ADMINISTRATIVE ASSISTANT OFFICE MANAGER: Unremarkable LUNGS: The lungs are under aerated, compatible with air trapping or asthma. However, the lungs are clear, with no evidence of inflammation or nodules. MEDIASTINUM: Heart size normal. No pericardial effusion. No significant adenopathy. CORONARY ARTERY CALCIFICATION: Minor PLEURA: There is no pleural effusion. No pleural mass or thickening. AXILLA: No lymphadenopathy. UPPER ABDOMEN: Tiny punctate nephroliths in both kidneys but no hydronephrosis. Adrenals normal. OSSEOUS STRUCTURES: No fracture or destructive process. Sternum intact. CT/CT chest wo IV con IMPRESSION: Hyperaeration suggestive of asthma.. No acute findings. No osseous fracture seen. Punctate coronary artery calcifications somewhat unusual for patient of this age. Please correlate with the patient's clinical exam. Fleischner guidelines were followed. Electronically signed by: Sudhir Mcclain MD 04/07/2024 01:39 PM EDT
[2024-04-07 08:26] VITALS: BP 115/74; PULSE 80; RESP 19; TEMP 36.6; O2SAT 98; BMI 25.1
--- NOTE | 2024-04-07 10:44 | ED_ITS ---
HPI - General Adult General Chief complaint: Back Pain/Injury Stated complaint: back inj-neck/leg pain Time Seen by Provider: 04/07/24 10:43 Source: patient Mode of arrival: ambulatory Limitations: no limitations History of Present Illness ED Provider: Melonie Camp PA-C HPI narrative: 33 yo male presents with 3 hours of low back pain radiating down to legs and anteriorly to ribs. At around 0745 was lifting a 60 lb bag of meat, stood with load and twisted to his left, subsequently felt a sharp pain in left lower back radiating down to his left leg. Now has sharp 7/10 low back pain, worse on the left side and associated with some numbness and tingling. Pain radiates up and down his back, worse at shoulders and in left leg. At time of injury, felt a pop and subsequently has pain at left costal margin. He feels as though his left costal margin is more angulated than usual and is different than the right. Has been able to ambulate on his own, painful but no deficit. Onset (ago): hour(s) Location: back Radiation: back, neck, extremity and flank Severity scale (1-10): 7 Quality: stabbing and sharp Pain Consistency: constant Relieving factors: none Exacerbating factors: movement Associated symptoms: denies other symptoms Treatments prior to arrival: none Related Data Previous Rx's ?Medication ?Instructions ?Recorded cephalexin 500 mg capsule 500 mg PO QID 10 days #40 caps 03/23/24 hydrocortisone 2.5 % topical cream 1 appl topical BID PRN skin 03/23/24 irritation #30 grams Allergies Allergy/AdvReac Type Severity Reaction Status Date / Time No Known Allergies Allergy Verified 04/07/24 08:29 Review of Systems Constitutional: Constitutional: Reports no additional constitutional complaints, Reports chills, Reports fever(s) and Denies night sweats Eyes: Eyes: Reports no additional eye complaints, Denies blurry vision, Denies change in vision, Denies diplopia, Denies eye discharge, Denies loss of vision and Denies eye pain ENT: Denies dizziness Cardiovascular: Cardiovascular: Reports no additional cardiovascular complaints, Denies chest pain, Denies lightheadedness, Denies Loss of Consciousness and Denies dyspnea Respiratory: Respiratory: Reports no additional respiratory complaints and Denies dyspnea Gastrointestinal: Gastrointestinal: Reports no additional gastrointestinal complaints, Denies abdominal pain, Denies melena, Denies hematochezia, Denies change in bowel habits and Denies change in stool character Genitourinary: Genitourinary: Reports no additional male genitourinary complaints, Denies hematuria, Denies oliguria, Denies difficulty urinating, Denies dysuria, Denies urinary frequency, Denies urinary hesitancy, Denies urinary incontinence and Denies urinary urgency Musculoskeletal: Musculoskeletal: Reports no additional musculoskeletal compl aints, Reports back pain, Reports numbness and Reports tingling Neurologic: Denies dizziness, Denies loss of vision, Reports numbness and Reports tingling Psychiatric: Psychiatric: Reports no additional psychiatric complaints Endocrine: Endocrine: Reports no additional endocrine complaints Hematologic/Lymphatic: Hematologic/Lymphatic: Reports no additional hematologic/lymphatic complaints Allergic/Immunologic: Allergic/Immunologic: Reports no additional allergic/immunologic complaints [facility] Past Medical History Attestation statement: The following information was validated with the patient. Source: old records reviewed and nursing notes reviewed Medical History Smoker Nephrolithiasis No pertinent past medical history Surgical History No pertinent past surgical history Social History Social History Household Members: Family Housing: Apartment Do you presently have visiting nurse or other home services: No Alcohol intake: current Alcohol intake frequency: holidays/special occasions only Alcohol type: beer Patient Tobacco Use Status: Current everyday Tobacco user Tobacco use type: Cigarette Cigarettes Per Day: 10 Years Smoked: 13 e-Cigarette/Vaping Use: Currently Using Second Hand Smoke Exposure: No Substance Use Type: Marijuana Advance Directives: No Advance Directives Information Provided: No Do you have a plan to hurt others: No Plan Current occupational status: employed Current occupation: [employer] Current occupational exposures/hazards: No Cognitive needs: No Hearing needs: No Vision needs: No Physical Exam ED Vital Signs: Vital Signs - 24 hr 04/07/24 08:26 04/07/24 15:06 Temperature 98 F 98 F Pulse Rate 80 80 Respiratory Rate 19 19 Blood Pressure 115/74 115/74 Pulse Oximetry 98 98 Oxygen Delivery Method Room Air BMI result Body Mass Index 25.1 Const General: cooperative, no acute distress, alert and awake Nutritional Appearance: well nourished Orientation/consciousness: patient oriented x3 Limitations: no limitations HENMT Head: Yes normal to inspection and Yes atraumatic Ears: hearing grossly normal bilaterally and external ears normal General nose exam: Normal external nose present, no nasal discharge noted and no epistaxis Face and sinus: Yes normal facial exam, No abrasion and No laceration Mouth: Normal oral and palatal mucosa present, no drooling and no muffled voice Eyes General: appearance normal, both eyes and all related structures Periorbital: periorbital findings normal Eyelids: Yes eyelids normal Conjunctivae: conjunctivae normal Pupils: Equal, round and reactive pupils present EOM: EOMs intact bilaterally Neck Neck: Yes normal visual inspection, Yes full ROM and Yes no lymphadenopathy Chest Other: Has tenderness radiating from left lower back to left costal margin. Mild discrepancy between appearance of floating ribs, left appears to be more angulated. No point tenderness, crepitus or abnormal movement. No SOB. Chest palpation & inspection: normal inspection of the chest Resp Effort & Inspection: normal respiratory effort and able to speak in complete sentences Auscultation: clear to auscultation bilaterally Cardio Jugular venous distension: no JVD Rate: regular rate Rhythm: regular rhythm GI Inspection: Yes normal to inspection Back/Spine/Pelvis Thoracic/Lumbar Spine: thoraco-lumbar ROM normal, pain with thoraco-lumbar ROM, lumbar spinal tenderness and straight leg raise positive (Positive on left, negative on right ) Neuro General: patient oriented x3 and moves all extremities Cranial nerves: Yes Equal, round and reactive pupils present Cognition (Neuro): normal cognition Extrem General: Yes normal to inspection, Yes full ROM and Yes capillary refill normal Left lower extremity: normal to inspection (Numbness and tingling, PMS intact. ) and full ROM Psych Appearance: grossly normal Mental Status: mental status grossly normal Affect: normal affect Attitude: cooperative Thought process: Normal thought process present Thought content: Normal thought content present Insight: Good insight present (Psych) Medications Administered Discontinued Medications Generic Name Dose Route Start Last Admin Trade Name Freq PRN Reason Stop Dose Admin Ketorolac Tromethamine 15 mg 04/07/24 11:19 04/07/24 12:08 Ketorolac Tromethamine 15 Mg/Ml Vial IM 04/07/24 11:20 15 mg ONCE ONE Administration Methylprednisolone Sodium Succinate 60 mg 04/07/24 11:19 04/07/24 12:08 Methylprednisolone Sod Succ 125 Mg/2 Ml Vial IM 04/07/24 11:20 60 mg ONCE ONE Administration Medical Decision Making Medical Decision Making MDM Narrative: 33 yo male with history of nephrolithiasis, onychomycosis, MRSA infection presents with 3 hours of low back pain after work injury involving lifting and turning with 60 lb load. [place] a Pop and has subsequent 7/10 left low back pain with numbness and tingling to LLE, radiation to left costal margin. States that left ribs appear more angulated than right side and are deformed as compared with baseline. Ambulates independently, Tylenol had no effect. Denies systemic symptoms, incontinence. On exam, VSS, has point tenderness in left lumbar spine, positive straight leg raise on left, intact PMS in all four extremities. Patient's CT chest and lumbar spine showed no acute process. I explained my physical exam findings as well as all test results to the patient. I answered all questions asked by the patient. I stressed the importance of the patient taking his medication as directed (either prescribed or as the over the counter packaging recommends). I stressed the importance of the patient following up with his primary care provider and with [facility]. I stressed the importance of the patient returning to the emergency department immediately if his symptoms were to worsen or if he were to develop any dizziness, shortness of breath, difficulty breathing, chest pain, blurry vision, loss of vision, nausea, vomiting, abdominal pain, fever, chills, back pain, or any other complaints. Patient verbalized agreement and understanding with this treatment plan and discharge Differential Diagnosis Differential Diagnoses: The differential diagnosis associated with the presentation includes Low back pain Herniated disc Bulging disc Muscle strain Muscle sprain Lumbar radiculopathy Rib fracture Rib contusion Admission/Observation Consideration of admission/observation: Escalation of care including admission/observation considered Patient would have been admitted to the hospital had his work up had any findings where hospital admission was appropriate and his clinical presentation warranted hospital admission. Independent Interpretation I performed an independent interpretation of an: CT Scan Interpretation: My interpretation is in agreement with the radiologist's impression of these imaging studies. EXAMINATION: CT LUMBAR SPINE WITHOUT CONTRAST CLINICAL INFORMATION: Low back pain. Twisting injury. Left lower rib pain. COMPARISON: CT abdomen and pelvis from 02/11/2023. TECHNIQUE: Multidetector helical imaging of the lumbar spine was obtained without intravenous contrast. Multiple axial reformats and coronal/sagittal reconstructions were created the technologist workstation for review. This CT examination was performed using dose optimization techniques as appropriate, variously including the following: *Automated exposure control. *Adjustment of mA and/or kV according to patient size (this includes techniques or standardized protocols for targeted exams where dose is matched to indication/reason for exam; i.e. extremities or head). *Use of iterative reconstruction technique. DLP: 576 mGy-cm FINDINGS: Normal anatomic alignment. No evidence of acute fracture or traumatic subluxation. The vertebral body heights are maintained. The intervertebral disc spaces are maintained. No suspicious lytic or sclerotic osseous lesions. No significant abnormalities of the paraspinal musculature. Nonobstructive renal stones bilaterally measuring between punctate in size to 0.4 cm. Otherwise, limited evaluation of the intra-abdominal structures without significant abnormalities. The abdominal aorta is of normal contour and caliber. AXIAL SPINAL LEVELS: L1-L2: Normal annular contour. There is mild left and no right facet joint arthropathy. There is no neural foraminal stenosis. There is no demonstrated spinal canal stenosis. L2-L3: Mild diffuse disc bulge. There is moderate bilateral facet joint arthropathy. There is mild bilateral neural foraminal stenosis. There is no demonstrated spinal canal stenosis. L3-L4: Mild diffuse disc bulge. There is moderate right and mild left facet joint arthropathy. There is mild left and no right neural foraminal stenosis. There is no demonstrated spinal canal stenosis. L4-L5: Moderate diffuse disc bulge. There is moderate right and mild left facet joint arthropathy. There is mild to moderate right and mild left neural foraminal stenosis. There is no demonstrated spinal canal stenosis. L5-S1: Mild diffuse disc bulge. There is moderate right and mild left facet joint arthropathy. There is no neural foraminal stenosis. There is no demonstrated spinal canal stenosis. CT/CT lumbar spine wo IV con IMPRESSION: 1. No evidence of acute fracture or traumatic subluxation of the lumbar spine. 2. Mild to moderate multilevel degenerative spondyloarthropathy of the lumbar spine as described in detail above. Most notably on this limited exam without intrathecal contrast, there appears to be mild to moderate neural foraminal stenoses from L2-L5. No demonstrated spinal canal stenosis. 3. Bilateral nonobstructive nephrolithiasis. Electronically signed by: Edison Torres DO 04/07/2024 02:38 PM EDT RP Dictated By: Paul Torres DO Signed By: Electronically signed by Paul Torres DO 04/07/24 1438 EXAMINATION: CT CHEST WITHOUT CONTRAST CLINICAL INFORMATION: Left lower rib pain and injury COMPARISON: None available. TECHNIQUE: Multidetector volumetric CT imaging of the chest was done. Axial MIP volume rendering provided. Sagittal and coronal reformatted images were obtained. This CT examination was performed using dose optimization techniques as appropriate, variously including the following: *Automated exposure control *Adjustment of mA and/or kV according to patient size (this includes techniques or standardized protocols for targeted exams where dose is matchedto indication/reason for exam; i.e. extremities or head) *Use of iterative reconstruction technique DLP: 268 mGy-cm FINDINGS: SENIOR PRODUCT CONSULTANT: Unremarkable LUNGS: The lungs are under aerated, compatible with air trapping or asthma. However, the lungs are clear, with no evidence of inflammation or nodules. MEDIASTINUM: Heart size normal. No pericardial effusion. No significant adenopathy. CORONARY ARTERY CALCIFICATION: Minor PLEURA: There is no pleural effusion. No pleural mass or thickening. AXILLA: No lymphadenopathy. UPPER ABDOMEN: Tiny punctate nephroliths in both kidneys but no hydronephrosis. Adrenals normal. OSSEOUS STRUCTURES: No fracture or destructive process. Sternum intact. CT/CT chest wo IV con IMPRESSION: Hyperaeration suggestive of asthma.. No acute findings. No osseous fracture seen. Punctate coronary artery calcifications somewhat unusual for patient of this age. Please correlate with the patient's clinical exam. Fleischner guidelines were followed. Electronically signed by: Sudhir Mcclain MD 04/07/2024 01:39 PM EDT RP Dictated By: Sudhir Mcclain MD Signed By: Electronically signed by Sudhir Mcclain MD 04/07/24 9319 Radiology Impression Discussion of test interpretation with radiology: I have reviewed the radiologist's reading. Discharge Plan Discharge Clinical Impression: Back pain, Pain in rib Patient Disposition: Home, Self-Care Instructions: Back Pain (ED) Additional Instructions: Follow up with your primary care provider and [facility]. Return to the emergency department immediately if your symptoms worsen or if you develop any dizziness, shortness of breath, difficulty breathing, chest pain, blurry vision, loss of vision, nausea, vomiting, abdominal pain, fever, chills, back pain, or any other complaints. Prescriptions: No Action hydrocortisone 2.5 % cream 1 appl topical BID PRN (Reason: skin irritation) Qty: 30 1RF cephalexin 500 mg capsule 500 mg PO QID 10 Days Qty: 40 2RF Referrals: [facility] [Provider Group] (Call to establish and follow up with [facility], given this was a work place injury. ) Ranjeet Sheriff, GEOPHYSICAL SUPPORT SPECIALIST-BC [Primary Care Provider] - Stand Alone Forms: Work/School Release Interventions: ED Discharge Assessment Last Done: 04/07/24 15:06 Discharge Date/Time: 04/07/24 15:07 Print Language: Wolof
[2024-04-07] MEDS: Ketorolac Tromethamine 15 MG/ML VIAL IM (12:08)
[2024-04-07] MEDS: methylPREDNISolone Sod Succ 125 MG/2 ML VIAL 60 MG IM (12:08)
[2024-04-07 15:06] VITALS: BP 115/74; PULSE 80; RESP 19; TEMP 36.6; O2SAT 98
== END 2024-04-07 15:07 | disposition home or self-care (01) ==
PROVIDERS: Emergency Provider Student in an Organized Health Care Education/Training Program; PCP Nurse Practitioner Family
DX: M54.50 Low back pain, unspecified (principal); R07.81 Pleurodynia; F17.210 Nicotine dependence, cigarettes, uncomplicated
CPT/HCPCS: 71250; 72131; 96372; 99283; 99284; J1885; J2919

== ENCOUNTER 2024-06-03 17:15 | Emergency (ER) | payer OTHER, SELFPAY ==
[2024-06-03 17:31] VITALS: BP 138/92; PULSE 89; RESP 20; TEMP 36.7; O2SAT 99; BMI 23.9
--- NOTE | 2024-06-03 17:48 | ED_ITS ---
HPI - General Adult General Chief complaint: Upper Respiratory Symptoms Stated complaint: body aches/sob/covid + Time Seen by Provider: 06/03/24 17:38 Source: patient Mode of arrival: ambulatory Limitations: no limitations History of Present Illness ED Provider: Marcial Richardson HPI narrative: 34 yold male with URI SYmptoms presents to ED for evaluation today after testing positive today for COVID. Patient denies any chest pain or shortness of breath. Mother sent patient to the ED was wondering about any medication to give patient so patient elderly father can not contract COVID. Related Data Previous Rx's ?Medication ?Instructions ?Recorded cephalexin 500 mg capsule 500 mg PO QID 10 days #40 caps 03/23/24 hydrocortisone 2.5 % topical cream 1 appl topical BID PRN skin 03/23/24 irritation #30 grams Allergies Allergy/AdvReac Type Severity Reaction Status Date / Time No Known Allergies Allergy Verified 06/03/24 17:34 Review of Systems Review of Systems: URI symptoms. Positive COVID Yes all other systems are reviewed and are negative PMFSH Past Medical History Medical History Smoker Nephrolithiasis No pertinent past medical history Surgical History No pertinent past surgical history Social History Social History Household Members: Family Housing: Apartment Do you presently have visiting nurse or other home services: No Alcohol intake: current Alcohol intake frequency: holidays/special occasions only Alcohol type: beer Patient Tobacco Use Status: Current everyday Tobacco user Tobacco use type: Cigarette Cigarettes Per Day: 10 Years Smoked: 13 e-Cigarette/Vaping Use: Currently Using Second Hand Smoke Exposure: No Substance Use Type: Marijuana Advance Directives: No Advance Directives Information Provided: No Do you have a plan to hurt others: No Plan Current occupational status: employed Current occupation: [employer] Current occupational exposures/hazards: No Cognitive needs: No Hearing needs: No Vision needs: No Physical Exam ED Vital Signs: Vital Signs - 24 hr 06/03/24 17:31 06/03/24 17:57 Temperature 98.1 F 98.1 F Pulse Rate 89 89 Respiratory Rate 20 20 Blood Pressure 138/92 H 138/92 H Pulse Oximetry 99 99 Oxygen Delivery Method Room Air Room Air BMI result Body Mass Index 23.9 Const General: cooperative, healthy appearing, comfortable, no acute distress, well developed, alert, awake and Physically active Orientation/consciousness: patient oriented x3 HENMT Head: Yes normal to inspection, Yes No palpable skull fracture present, Yes normocephalic and Yes atraumatic Ears: hearing grossly normal bilaterally, external ears normal, TM's normal bilaterally, TM normal on the left, EAC's normal, mastoids normal and no periauricular adenopathy Throat: Yes posterior oropharynx normal, Yes tonsils normal and Yes uvula midline Eyes General: appearance normal, both eyes and all related structures Neck Neck: Yes normal visual inspection, Yes full ROM, Yes no lymphadenopathy, Yes no meningeal signs, Yes trachea midline, Yes supple, No anterior neck swelling and No tender Chest Chest palpation & inspection: normal inspection of the chest and normal palpation of entire chest wall Resp Effort & Inspection: normal respiratory effort and able to speak in complete sentences Auscultation: clear to auscultation bilaterally Cardio Jugular venous distension: no JVD Heart sounds: S1 normal heart sound present and S2 normal heart sound present GI Inspection: Yes normal to inspection Palpation (GI): Soft to palpation, not firm, nontender, no guarding and not rig id General: No CVA tenderness and Yes no CVA tenderness Back/Spine/Pelvis Back: no CVA tenderness, No CVA tenderness and No back tenderness Skin General skin exam: no rashes or lesions noted, elasticity normal and turgor normal Neuro General: patient oriented x3, gait normal, tone normal, moves all extremities, Normal light touch and pain sensation, no meningeal signs, no focal motor deficits, CN's II-XI intact bilaterally and normal sensation to monofilament Extrem General: Yes normal to inspection, Yes full ROM and Yes capillary refill normal Psych Appearance: grossly normal, well kempt and not disheveled Course Course Course Narrative: RME; 34 yold male presents to the ED evaluation for COVID positive test. Patient states having URI symptoms tested positive for COVID today and was sent by his mother to the ED to be evaluated. Patient denies any chest pain or shortness of breath. Medical Decision Making Medical Decision Making [facility] Narrative: 34-year-old male to tested positive for COVID today with URI symptoms presents to ED for evaluation. Patient states mother was concerned due to him having COVID and his father elderly sick and wants medication to prevent his father from getting COVID from patient. Patient presently without any chest pain or shortness of breath. Patient well-appearing. Patient is educated on isolation from father. Patient explained signs worrisome due to COVID and informed return to ED immediately. Not suspecting PE, pneumonia, weakness, dizziness, or any other concerning symptoms. Differential Diagnosis Differential Diagnoses: The differential diagnosis associated with the presentation includes (COVID) Admission/Observation Consideration of admission/observation: Escalation of care including admission/observation considered Independent Historian Clinical information obtained from an independent historian. History obtained from or confirmed by: Other (patient) External Record Review External record reviewed: Other (prior visits) Discharge Plan Discharge Clinical Impression: COVID-19 Patient Disposition: Home, Self-Care Instructions: COVID-19 (Coronavirus Disease 2019) (ED) Additional Instructions: Recommend self isolation and wear mask around elderly parents. Return to the ED immediately for any chest pain, shortness of breath, weakness, dizziness, leg swelling, calf pain, or any other concerning symptoms. Recommend follow up with primary care provider Prescriptions: No Action hydrocortisone 2.5 % cream 1 appl topical BID PRN (Reason: skin irritation) Qty: 30 1RF cephalexin 500 mg capsule 500 mg PO QID 10 Days Qty: 40 2RF Stand Alone Forms: Work/School Release Interventions: ED Discharge Assessment Last Done: 06/03/24 17:57 Discharge Date/Time: 06/03/24 17:57 Print Language: Greenlandic
[2024-06-03 17:57] VITALS: BP 138/92; PULSE 89; RESP 20; TEMP 36.7; O2SAT 99
== END 2024-06-03 17:57 | disposition home or self-care (01) ==
PROVIDERS: Emergency Provider Internal Medicine; PCP Nurse Practitioner Family
DX: U07.1 COVID-19 (principal); M79.10 Myalgia, unspecified site; F17.210 Nicotine dependence, cigarettes, uncomplicated
CPT/HCPCS: 99282

== ENCOUNTER 2024-09-11 14:02 | Outpatient (REF) | payer SELFPAY ==
[2024-09-11 15:20] LABS: MANUAL DIFF FLAG NO
[2024-09-11 15:22] LABS: Basophils Absolute Auto 0.1 X10*3/uL (0.0-0.2); Basophils Percent Auto 0.7 % (0-2); Eosinophils Absolute Auto 0.2 X10*3/uL (0.0-0.4); Eosinophils Percent Auto 2.4 % (0-4); Hematocrit 42.6 % (42.0-52.0); Hemoglobin 14.8 g/dl (14.0-18.0); Imm Gran Abs Auto 0.02 X10*3/uL (0.00-0.03); Imm Gran Pct Auto 0.3 % (0.0-0.4); Lymphocytes Absolute Auto 2.1 X10*3/uL (1.2-4.9); Lymphocytes Percent Auto 31.5 % (20-40); Mean Corpuscular HGB Conc 34.7 g/dl (31.0-36.0); Mean Corpuscular Hemoglobin 30.3 pg (27.0-33.0); Mean Corpuscular Volume 87.3 fL (80.0-98.0); Mean Platelet Volume 10.6 fL (9.4-12.4); Monocytes Absolute Auto 0.4 X10*3/uL (0.1-1.2); Monocytes Percent Auto 6.2 % (2-11); Neutrophils Percent Auto 58.9 % (45-73); Platelet Count 269 X10*3/uL (160-400); Red Blood Count 4.88 X10*6/uL (4.60-5.80); Red Cell Distribution Width 12.4 % (11.0-16.0); White Blood Count 6.8 X10*3/uL (4.8-10.8)
[2024-09-11 15:23] LABS: Appearance Urine Clear; Color Urine Yellow; Glucose Urine UA Negative (Negative); Leukocyte Esterase Urine Negative (Negative); Nitrite Urine Negative (Negative); PH 5.5 (5.0-9.0); Urine Blood Negative (Negative); Urine Ketones Negative (Negative); Urine Protein Negative (Neg-Trace)
[2024-09-11 15:50] LABS: Alanine Aminotransferase 27 U/L (0-40); Albumin Level 4.4 g/dL (3.5-5.0); Alkaline Phosphatase 66 U/L (39-117); Anion Gap 13 (12-20); Aspartate Amino Transferase 27 U/L (5-37); Bilirubin Total 0.6 mg/dL (0.0-1.0); Blood Urea Nitrogen 15 mg/dL (9-16); Calcium 9.3 mg/dL (8.4-10.2); Carbon Dioxide 22 mmol/L (22-29); Chloride 109 mmol/L (96-108); Cholesterol 165 mg/dL (<200); Estimated Glomerular Filt Rate > 60; Glucose Fasting 70 mg/dL (60-99); HDL Cholesterol 55 mg/dL (>40); LDL Cholesterol Calculated 101 mg/dL (<100); Potassium 3.7 mmol/L (3.3-5.1); Sodium 140 mmol/L (135-145); Total Protein 7.9 g/dL (6.5-8.0); Triglycerides 47 mg/dL (<150)
== END 2024-09-11 14:03 | disposition home or self-care (01) ==
LOC: HO.HMGCLDS 14:02
PROVIDERS: PCP Nurse Practitioner Family; Visit Provider Nurse Practitioner Family
DX: Z00.01 Encounter for general adult medical examination with abnormal findings (principal); Z13.220 Encounter for screening for lipoid disorders; Z13.29 Encounter for screening for other suspected endocrine disorder; Z13.9 Encounter for screening, unspecified
CPT/HCPCS: 36415; 80053; 80061; 81003; 84443; 85025

== ENCOUNTER → 2024-09-13 07:52 | Outpatient (BNVA) | payer SELFPAY | PROVIDERS: Visit Provider Nurse Practitioner Family ==